=== PATIENT | female | born 1990 | race Caucasian/White ===

== ENCOUNTER 2016-05-13 09:41 | Day surgery (SDC) | payer OTHER ==
[~2016-05-13 09:41] MED LIST: CEFAZOLIN 2 GM/D5W RTU 2 GM/50 ML RTUPB IV PRN
[2016-05-13] MEDS ORDERED: BUPIVACAINE HCL 0.5 % INJ/PF 30 ML SDV ONE (10:02)
[2016-05-13] MEDS ORDERED: LIDOCAINE 1% INJ-PF (10 MG/ML) 30 ML SDV ONE (10:02)
[2016-05-13] MEDS ORDERED: ALBUTEROL SULFATE 0.083% NEB 2.5 MG/3 ML AMPUL NEB ONE (10:30)
[2016-05-13] MEDS ORDERED: ACETAMINOPHEN 100 ML IV ONE ×2 (10:40→10:43)
[2016-05-13] MEDS ORDERED: MIDAZOLAM 2 MG/2 ML INJ ONE (10:42)
[2016-05-13] MEDS ORDERED: FENTANYL CITRATE INJ/PF 100 MCG/2 ML AMPUL ONE (10:42)
[2016-05-13] MEDS ORDERED: DEXMEDETOMIDINE INJ 80 MCG/20 ML VIAL IV ONE (10:43)
[2016-05-13] MEDS ORDERED: PROPOFOL INJ 200 MG/20 ML VIAL IV ONE (10:43)
[2016-05-13] MEDS ORDERED: METOCLOPRAMIDE HCL INJ/PF 10 MG/2 ML SDV ONE (10:44)
[2016-05-13] MEDS ORDERED: SCOPOLAMINE HYDROBROMIDE 1.5 MG PATCH.TD72 ONE (10:44)
[2016-05-13] MEDS ORDERED: FAMOTIDINE INJ/PF 20 MG/2 ML SDV IV ONE (10:45)
[2016-05-13] MEDS ORDERED: IBUPROFEN 800 MG in NORMAL SALINE 250 ML IV ONE (12:00)
[2016-05-13] MEDS ORDERED: DIPHENHYDRAMINE HCL 50 MG/ML VIAL IV PRN (13:13)
[2016-05-13] MEDS ORDERED: MORPHINE SULFATE 10 MG/ML INJ IV PRN ×2 (13:13→14:30)
[2016-05-13] MEDS ORDERED: OXYCODONE-ACETAMINOPHEN 5-325 MG TABLET PO PRN ×3 (13:13→14:30)
[2016-05-13] MEDS ORDERED: PROMETHAZINE HCL INJ 25 MG/1 ML VIAL IV PRN ×2 (13:13)
[2016-05-13] MEDS ORDERED: MEPERIDINE HCL/PF INJ 25 MG/1 ML DISP.SYRIN IV PRN (13:13)
[2016-05-13] MEDS ORDERED: FENTANYL CITRATE INJ/PF 100 MCG/2 ML AMPUL IV PRN ×3 (13:13)
[2016-05-13] MEDS ORDERED: ONDANSETRON HCL INJ/PF 4 MG/2 ML SDV IV PRN (14:30)
--- NOTE | 2016-05-13 14:30 | Operative Report ---
Operative Report DATE OF SURGERY: 05/13/16 PREOPERATIVE DIAGNOSIS: Left Ring Finger Flexor Adhesions POSTOPERATIVE DIAGNOSIS: Same OPERATION: Left Ring Finger Flexor Tenolysis SURGEON: VIR[place] TAN ANESTHESIA: GA COMPLICATIONS: None ESTIMATED BLOOD LOSS: Minimal PROCEDURE: Indication for above procedure: 26-year-old female who sustained a jersey finger/FDP rupture. She underwent operative treatment. Postoperatively she underwent occupational therapy and developed flexor adhesions is unable to fully actively flex the finger. At that point we discussed treatment options including observation versus continue occupational therapy versus surgical intervention. After discussing risks and benefits of both patient verbalized understanding consented for the procedure. Procedure In Detail: Patient was seen and evaluated in the preoperative holding area. The LEFT upper extremity was initialized and marked. Patient received Ancef IV for bacterial prophylaxis. Patient was taken back to the operative room where transferred operative table. Patient was then placed Anesthesia. Once adequately anesthetized, a nonsterile tourniquet was placed on the upper extremity. A surgical team debriefing was performed ensuring all instrumentation was available, the surgical procedure was discussed with possible concerns reviewed. Skin was prepped with alcohol a digital block was performed with 50:50 10 mL mixture of 1% lidocaine and 0.5% Marcaine plain was injected. The upper extremity was prepped with chlorhexidine and alcohol and draped in a sterile fashion. A timeout was done identifying correct patient, procedure and extremity everyone in attendance agree with this and verbalized no concerns.The extremity was then exsanguinated the tourniquet was inflated to 250 mmHg. The previous skin incision was utilized and extended proximally to the level of the A1 fahad. Blunt dissection was performed and neurovascular bundle was identified throughout the course of the incision and protected. The A2 fahad and a portion of the A4 fahad remained intact. There was notable flexor adhesions distally at the repair site but no discontinuity of the tendon. Using a [place] blade the tendon was freed from surrounding soft tissue. I then carefully dilated the flexor sheath with a [employer] elevator. And a flexor tenolysis knife was utilized to free the tendon from the underlying proximal phalanx and metacarpal. It was then freed from surrounding soft tissue. Patient was then awoken from anesthesia and tourniquet deflated. Peripheral vasculature was coagulated with bipolar cautery. Patient attempted to make full composite fist but continued to have flexor lag of the DIP joint. The tourniquet was reinflated. The wound was extended more proximally and blunt dissection was once again performed. At the level of the A1 fahad there was notable adhesions. I once again used the freer and tenolysis knife to free any surrounding soft tissue. She was then again woken from anesthesia and tourniquet deflated. Patient was then able to make near full composite fist down to the distal palmar crease. Active DIP range of motion was 5/45. Given the amount of soft tissue that was freed I felt this was optimal for function I also released some remaining contracture adhesions all of the DIP joint. Any peripheral vasculature was coagulated with bipolar cautery until the wound was dry. Wound was irrigated with normal saline. An additional 5 mL of Marcaine were injected for postoperative pain control. Incision was closed with 4-0 Monocryl suture. The remaining aspect of the incision was closed with 4-0 chromic gut. Wound was dressed with Xeroform cast padding a loosely applied Jessica. Sponge counts, instrument counts, needle counts counts were correct. Patient was then awoken from anesthesia. Transferred from the operating room table to the operating room stretcher. There was no intraoperative complications patient tolerated procedure well stable to PACU. Postoperative plan: Patient will follow-up in the office in 10-14 days for wound check. Patient will begin physical therapy on 05/16/16.
[2016-05-13] MEDS ORDERED: LIDOCAINE 2% INJ-PF (20 MG/ML) 10 ML AMPUL ONE (15:56)
[2016-05-13] MEDS ORDERED: ONDANSETRON HCL INJ/PF 4 MG/2 ML SDV ONE (15:56)
[2016-05-13] MEDS ORDERED: SUCCINYLCHOLINE CHLORIDE INJ 200 MG/10 ML VIAL ONE (15:56)
[2016-05-13] MEDS ORDERED: DEXAMETHASONE SOD PHOSPHATE INJ 4 MG/1 ML VIAL ONE (15:56)
[2016-05-13 16:07] VITALS: BP 113/72
== END 2016-05-13 16:12 | disposition home or self-care (01) ==
LOC: OROUT 09:41
PROVIDERS: ATTEND Orthopaedic Surgery
PROC: 0LN80ZZ Release Left Hand Tendon, Open Approach (ICD-10-PCS; principal; 2016-05-13 12:00)
DX: M24.542 Contracture, left hand (principal); F17.210 Nicotine dependence, cigarettes, uncomplicated; J45.909 Unspecified asthma, uncomplicated; Z88.1 Allergy status to other antibiotic agents
CPT/HCPCS: 81025; 26440; J2250; J1100; J3010; J3490 ×3; J2765; J0330; J2405; J7050; J2704; S0028; J0690; J0131; J1741; 1810

== ENCOUNTER 2016-12-23 20:46 | Emergency (ER) | payer OTHER ==
[2016-12-23 20:58] VITALS: BP 145/78
[2016-12-23] MEDS ORDERED: OXYCODONE-ACETAMINOPHEN 5-325 MG TABLET PO ONE (21:54)
[2016-12-23] MEDS ORDERED: PROMETHAZINE HCL 25 MG TABLET PO ONE (21:54)
--- NOTE | 2016-12-23 21:55 | ER Document Report ---
ED GI/ - General Chief Complaint: OB Problem (<20wks) Stated Complaint: STOMACH PAIN Time Seen by Provider: 12/23/16 21:40 Notes: Patient is a 26 year old female that comes to the ED for chief complaint of sudden onset of sharp pelvic pain in both parts of her pelvis radiating to her back. She states that she was having sexual intercourse with her boyfriend when she felt a sudden sharp pain. She states she has had this in the past and been diagnosed with an ovarian cyst. She denies vomiting, pain is not as bad as it was previously but she still reports significant discomfort. She denies any daily medications or any other medical history. TRAVEL OUTSIDE OF THE [place] IN LAST 30 DAYS: No - Related Data Allergies/Adverse Reactions: latex Allergy (Verified 05/13/16 10:12) Itching vancomycin Allergy (Verified 05/13/16 10:12) "red itchy scalp" bandaids Allergy (Uncoded 05/13/16 10:12) itching, redness Past Medical History - Social History Smoking Status: Never Smoker Frequency of alcohol use: Occasional Drug Abuse: None Lives with: Family Family History: Reviewed & Not Pertinent - Past Medical History Cardiac Medical History: Denies: Hx Coronary Artery Disease, Hx Heart Attack, Hx Hypertension Pulmonary Medical History: Reports: Hx Bronchitis Denies: Hx Asthma - "asthma symptoms", Hx COPD, Hx Pneumonia Neurological Medical History: Denies: Hx Cerebrovascular Accident, Hx Seizures Musculoskeltal Medical History: Denies Hx Arthritis Past Surgical History: Reports: Hx Section, Hx Oral Surgery - wisdom teeth, Hx Orthopedic Surgery - Finger surgery yesterday, tendon reattachment ring finger left hand - Immunizations Hx Diphtheria, Pertussis, Tetanus Vaccination: Yes Review of Systems - Review of Systems Constitutional: No symptoms reported EENT: No symptoms reported Cardiovascular: No symptoms reported Respiratory: No symptoms reported Gastrointestinal: See HPI Genitourinary: See HPI Female Genitourinary: See HPI Musculoskeletal: No symptoms reported Skin: No symptoms reported Hematologic/Lymphatic: No symptoms reported Neurological/Psychological: No symptoms reported Physical Exam - Vital signs Vitals: Temp Pulse Resp BP Pulse Ox 98.8 F 117 H 24 H 145/78 H 95 12/23/16 20:56 12/23/16 20:56 12/23/16 20:56 12/23/16 20:56 12/23/16 20:56 Interpretation: Normal - General General appearance: Anxious In distress: Mild - Patient does appear to be in some pain - HEENT Head: Normocephalic, Atraumatic Eyes: Normal Conjunctiva: Normal Extraocular movements intact: Yes Eyelashes: Normal Pupils: PERRL Mouth/Lips: Normal Mucous membranes: Normal Pharynx: Normal Neck: Normal - Respiratory Respiratory status: No respiratory distress Chest status: Nontender Breath sounds: Normal Chest palpation: Normal - Cardiovascular Rhythm: Regular, Tachycardia Heart sounds: Normal auscultation, S1 appreciated, S2 appreciated Murmur: No - Abdominal Inspection: Normal Distension: No distension Bowel sounds: Normal Tenderness: Nontender Organomegaly: No organomegaly - Back Back: Normal, Nontender. No: Tender, CVA tenderness - Extremities General upper extremity: Normal inspection, Nontender, Normal color, Normal ROM , Normal temperature General lower extremity: Normal inspection, Nontender, Normal color, Normal ROM , Normal temperature, Normal weight bearing. No: Karyn's sign - Neurological Neuro grossly intact: Yes Cognition: Normal Orientation: AAOx4 Eulogio Coma Scale Eye Opening: Spontaneous Eulogio Coma Scale Verbal: Oriented [place] Coma Scale Motor: Obeys Commands Eulogio Coma Scale Total: 15 Speech: Normal Motor strength normal: LUE, RUE, LLE, RLE Sensory: Normal - Skin Skin Temperature: Warm Skin Moisture: Dry Skin Color: Normal Course - Re-evaluation Re-evalutation: CBC, chemistry, urinalysis unremarkable, hCG is negative. Ultrasound consistent with ruptured ovarian cyst. Good blood supply to both ovaries. Patient does not have any vaginal bleeding. On reevaluation she is well- appearing. Vital signs unremarkable. There is a clot noted on ultrasound, no hemorrhagic cyst. No other abnormality. Patient will be provided with symptom management, given a few pain medications, discussed follow-up, return precautions in detail, patient states satisfaction and agreement. Unfortunately repeat vital signs were not recorded, patient was calm, well- appearing, not tachycardic on her evaluation. - Vital Signs Vital signs: Temp Pulse Resp BP Pulse Ox 98.8 F 117 H 24 H 145/78 H 95 12/23/16 20:56 12/23/16 20:56 12/23/16 20:56 12/23/16 20:56 12/23/16 20:56 - Laboratory Result Diagrams: 12/23/16 22:31 12/23/16 23:15 Discharge - Discharge Clinical Impression: Pelvic pain Condition: Stable Disposition: HOME, SELF-CARE Additional Instructions: Your ultrasound is consistent with a ruptured ovarian cyst. This is most likely the cause of your pain. No other abnormalities are seen at this time. Take the pain medication if needed, follow-up with primary care, return if the pain increases significantly, if you become faint, or if you experience vaginal bleeding, or any other concerning symptoms. Prescriptions: Hydrocodone/Acetaminophen [[place] 5-325 mg Tablet] 1 - 2 tab PO ASDIR #8 tablet Referrals: DINA LOPEZ MD [Primary Care Provider] - Follow up as needed
[2016-12-23 22:28] LABS: APPEARANCE,URINE SLIGHTLY-CLOUDY; BILIRUBIN,URINE NEGATIVE (NEGATIVE); GLUCOSE, URINE NEGATIVE (NEGATIVE); KETONES,URINE NEGATIVE (NEGATIVE); LEUKOCYTE ESTERASE,URINE NEGATIVE (NEGATIVE); NITRITE,URINE NEGATIVE (NEGATIVE); PROTEIN,URINE NEGATIVE (NEGATIVE); UROBILINOGEN,URINE NEGATIVE mg/dL (<2.0)
[2016-12-23 22:47] LABS: ABSOLUTE BASOPHILS # (AUTO) 0.1 10^3/uL (0.0-0.2); ABSOLUTE EOSINOPHILS # (AUTO) 0.2 10^3/uL (0.0-0.6); ABSOLUTE LYMPHOCYTES (AUTO) 2.1 10^3/uL (0.5-4.7); ABSOLUTE MONOCYTES (AUTO) 0.8 10^3/uL (0.1-1.4); ABSOLUTE NEUT (AUTO) 7.3 10^3/uL (1.7-8.2); BASOPHILS % (AUTO) 0.5 % (0-2); EOSINOPHILS % (AUTO) 1.6 % (0-6); HEMATOCRIT 38.8 % (36.0-47.0); HEMOGLOBIN 13.2 g/dL (12.0-15.5); HGB HCT DIFFERENCE 0.8; LYMPHOCYTES % (AUTO) 20.4 % (13-45); MEAN CORPUSCULAR HEMOGLOBIN 32.3 pg (27.0-33.4); MEAN CORPUSCULAR HGB CONC 34.1 g/dL (32.0-36.0); MEAN CORPUSCULAR VOLUME 95 fl (80-97); MONOCYTES % (AUTO) 7.7 % (3-13); RED BLOOD COUNT 4.09 10^6/uL (3.72-5.28); RED CELL DISTRIBUTION WIDTH 12.7 % (11.5-14.0); SEGMENTED NEUTROPHILS % (AUTO) 69.8 % (42-78); WHITE BLOOD COUNT 10.5 10^3/uL (4.0-10.5)
--- NOTE | 2016-12-23 23:41 | RADIOLOGY REPORT (SQ) ---
EXAM DESCRIPTION: U/S NON OB PEL TV W/DOPPLER COMPLETED DATE/TIME: 12/23/2016 11:31 pm REASON FOR STUDY: sharp pelvic pain, nausea, hx of cysts COMPARISON: None. TECHNIQUE: Dynamic and static grayscale images acquired of the pelvis via transvaginal approach and recorded on PACS. Additional selected color Doppler and spectral images recorded. LIMITATIONS: None. FINDINGS: UTERUS: Contour normal. No mass. ENDOMETRIAL STRIPE: No focal or generalized thickening. No masses. CERVIX: No nabothian cysts. RIGHT OVARY: No abnormal masses. RIGHT OVARY DOPPLER: Normal arterial vascular flow without evidence for torsion. LEFT OVARY: Normal with ruptured cyst/collapsing follicle. LEFT OVARY DOPPLER: Normal arterial vascular flow without evidence for torsion. FREE FLUID: Mild to moderate free fluid with round echogenic region without internal color flow measu ring 2.1 x 1.6 x 2.2 cm presumably representing a small amount of blood clot. OTHER: No other significant finding. MEASUREMENTS: UTERUS: 7.5 x 5.2 x 4.2 cm. ENDOMETRIAL STRIPE: 3 mm. RIGHT OVARY: 3.1 x 2.7 x 2.9 cm. LEFT OVARY: 4.7 x 2.5 x 3.4 cm. IMPRESSION: RUPTURED CYST/COLLAPSING FOLLICLE LEFT OVARY WITH MILD TO MODERATE FREE FLUID WHICH IS L IKELY PHYSIOLOGIC BUT COULD ACCOUNT FOR REPORTED PAIN. THERE IS A 2.2 CM AVASCULAR HYPERECHOIC LESIO N SEEN WITHIN THE FLUID PRESUMABLY REPRESENTING A SMALL AMOUNT OF BLOOD CLOT. OTHERWISE UNREMARKABLE PELVIC ULTRASOUND. TECHNICAL DOCUMENTATION: JOB ID: [id number] [employer]- All Rights Reserved
[2016-12-23] MEDS ORDERED: HYDROCODONE/ACETAMINOPHEN 5-325 MG 6 TAB/DSPK PO PRN (23:52)
[2016-12-23 23:57] LABS: ALANINE AMINOTRANSFERASE 35 U/L (9-52); ALBUMIN 4.2 g/dL (3.5-5.0); ALKALINE PHOSPHATASE 49 U/L (38-126); ANION GAP 12 (5-19); ASPARTATE AMINO TRANSFERASE 14 U/L (14-36); BILIRUBIN,DIRECT 0.4 mg/dL (0.0-0.4); BILIRUBIN,TOTAL 0.4 mg/dL (0.2-1.3); BLOOD UREA NITROGEN 10 mg/dL (7-20); CALCIUM 9.3 mg/dL (8.4-10.2); CARBON DIOXIDE 26 mmol/L (22-30); CHLORIDE 106 mmol/L (98-107); CREATININE RESULT 0.67 mg/dL (0.52-1.25); GLUCOSE 101 mg/dL (75-110); POTASSIUM 3.9 mmol/L (3.6-5.0); SODIUM 143.7 mmol/L (137-145); TOTAL PROTEIN 6.6 g/dL (6.3-8.2)
== END 2016-12-24 00:55 | disposition home or self-care (01) ==
LOC: ER 20:46
DX: R10.2 Pelvic and perineal pain (principal); R10.9 Unspecified abdominal pain; M54.9 Dorsalgia, unspecified
CPT/HCPCS: 36415; 76830; 80053; 81001; 81025; 85025; 93976; 99284

== ENCOUNTER 2017-05-29 15:54 | Emergency (ER) | payer BC, OTHER ==
[2017-05-29] MEDS ORDERED: HYDROCODONE/ACETAMINOPHEN 5-325 MG TABLET PO ONE (17:18)
--- NOTE | 2017-05-29 17:19 | ER Document Report ---
ED Medical Screen (RME) - General Chief Complaint: Lower Abdominal Pain Stated Complaint: ABDOMINAL PAIN Time Seen by Provider: 05/29/17 17:17 Notes: Patient states she was having intercourse 2 days ago when she developed the sudden onset of cervical and abdominal pain. She states it is not improved. She states her stomach feels swollen. She states it feels similar to when she has had a ruptured ovarian cyst in the past. Patient denies any vaginal bleeding. TRAVEL OUTSIDE OF THE [place] IN LAST 30 DAYS: No - Related Data Allergies/Adverse Reactions: latex Allergy (Verified 05/29/17 17:08) Itching vancomycin Allergy (Verified 05/29/17 17:08) "red itchy scalp" bandaids Allergy (Uncoded 05/29/17 17:08) itching, redness Past Medical History - Social History Chew tobacco use (# tins/day): No Frequency of alcohol use: None Drug Abuse: None - Past Medical History Cardiac Medical History: Denies: Hx Coronary Artery Disease, Hx Heart Attack, Hx Hypertension Pulmonary Medical History: Reports: Hx Bronchitis Denies: Hx Asthma - "asthma symptoms", Hx COPD, Hx Pneumonia Neurological Medical History: Denies: Hx Cerebrovascular Accident, Hx Seizures Renal/ Medical History: Denies: Hx Peritoneal Dialysis Musculoskeltal Medical History: Denies Hx Arthritis Past Surgical History: Reports: Hx Section, Hx Oral Surgery - wisdom teeth, Hx Orthopedic Surgery - Finger surgery yesterday, tendon reattachment ring finger left hand - Immunizations Hx Diphtheria, Pertussis, Tetanus Vaccination: Yes Physical Exam - Vital signs Vitals: Temp Pulse Resp BP Pulse Ox 98.0 F 98 16 137/90 H 98 05/29/17 16:18 05/29/17 16:18 05/29/17 16:18 05/29/17 16:18 05/29/17 16:18 Course - Vital Signs Vital signs: Temp Pulse Resp BP Pulse Ox 98.0 F 98 16 137/90 H 98 05/29/17 16:18 05/29/17 16:18 05/29/17 16:18 05/29/17 16:18 05/29/17 16:18
--- NOTE | 2017-05-29 18:29 | ER Document Report ---
ED General - General Chief Complaint: Lower Abdominal Pain Stated Complaint: ABDOMINAL PAIN Time Seen by Provider: 05/29/17 17:17 TRAVEL OUTSIDE OF THE [place] IN LAST 30 DAYS: No - HPI Notes: 19-year-old female presents today with complaints of right upper, right lower and cervical pain that she experienced 2 days ago while having sexual intercourse. Reports history of ovarian rupture. Pain is 9 out of 10, throbbing achy. Pain is constant. Worse with movement, nothing makes better. Has not tried any iabk-ceo-kamnztt medications. Has not had sexual intercourse since that time. Denies any vaginal discharge. Denies fevers, chills, chest pain,palpitations, shortness of breath, dyspnea, nausea, vomiting, diarrhea, hematuria,blurred vision, double vision, loss of vision, speech changes, LH, dizziness, syncope, headaches, wheezing, ST, URI, neck pain, weakness, bowel or bladder dysfunction, saddle anesthesia, numbness or tingling in bilateral upper or lower extremities equally, muscle paralysis, weakness in bilateral upper or lower extremities equally or rash. Denies IV drug use. - Related Data Allergies/Adverse Reactions: latex Allergy (Verified 05/29/17 17:08) Itching vancomycin Allergy (Verified 05/29/17 17:08) "red itchy scalp" bandaids Allergy (Uncoded 05/29/17 17:08) itching, redness Past Medical History - General Information source: Patient - Social History Smoking Status: Never Smoker Chew tobacco use (# tins/day): No Frequency of alcohol use: None Drug Abuse: None Family History: Reviewed & Not Pertinent Patient has suicidal ideation: No Patient has homicidal ideation: No - Past Medical History Cardiac Medical History: Denies: Hx Coronary Artery Disease, Hx Heart Attack, Hx Hypertension Pulmonary Medical History: Reports: Hx Bronchitis Denies: Hx Asthma - "asthma symptoms", Hx COPD, Hx Pneumonia Neurological Medical History: Denies: Hx Cerebrovascular Accident, Hx Seizures Renal/ Medical History: Denies: Hx Peritoneal Dialysis Musculoskeltal Medical History: Denies Hx Arthritis Past Surgical History: Reports: Hx Section, Hx Oral Surgery - wisdom teeth, Hx Orthopedic Surgery - Finger surgery yesterday, tendon reattachment ring finger left hand - Immunizations Hx Diphtheria, Pertussis, Tetanus Vaccination: Yes Review of Systems - Review of Systems Constitutional: No symptoms reported EENT: No symptoms reported Cardiovascular: No symptoms reported Respiratory: No symptoms reported Gastrointestinal: See HPI Genitourinary: No symptoms reported Female Genitourinary: See HPI Musculoskeletal: No symptoms reported Skin: No symptoms reported Hematologic/Lymphatic: No symptoms reported Neurological/Psychological: No symptoms reported Physical Exam - Vital signs Vitals: Temp Pulse Resp BP Pulse Ox 98.0 F 98 16 137/90 H 98 05/29/17 16:18 05/29/17 16:18 05/29/17 16:18 05/29/17 16:18 05/29/17 16:18 - Notes Notes: REVIEW OF SYSTEMS: CONSTITUTIONAL : Denies fever, chills, or sweats. Denies recent illness. EENT: Denies eye, ear, throat, or mouth pain or symptoms. Denies nasal or sinus congestion or discharge. Denies throat, tongue, or mouth swelling or difficulty swallowing. CARDIOVASCULAR: Denies chest pain. Denies palpitations or racing or irregular heart beat. Denies ankle edema. RESPIRATORY: Denies cough, cold, or chest congestion. Denies shortness of breath, difficulty breathing, or wheezing. GASTROINTESTINAL: Denies abdominal pain or distention. Denies nausea, vomiting , or diarrhea. Denies blood in vomitus, stools, or per rectum. Denies black, tarry stools. Denies constipation. GENITOURINARY: Denies difficulty urinating, painful urination, burning, frequency, blood in urine, or discharge. FEMALE GENITOURINARY: Denies vaginal bleeding, heavy or abnormal periods, irregular periods. Denies vaginal discharge or odor. MUSCULOSKELETAL: Denies back or neck pain or stiffness. Denies joint pain or swelling. SKIN: Denies rash, lesions or sores. HEMATOLOGIC : Denies easy bruising or bleeding. LYMPHATIC: Denies swollen, enlarged glands. NEUROLOGICAL: Denies confusion or altered mental status. Denies passing out or loss of consciousness. Denies dizziness or lightheadedness. Denies headache. Denies weakness or paralysis or loss of use of either side. Denies problems with gait or speech. Denies sensory loss, numbness, or tingling. Denies seizures. PSYCHIATRIC: Denies anxiety or stress. Denies depression, suicidal ideation, or homicidal ideation. ALL OTHER SYSTEMS REVIEWED AND NEGATIVE. PHYSICAL EXAMINATION: GENERAL: Well-appearing, well-nourished and in no acute distress. HEAD: Atraumatic, normocephalic. EYES: Pupils equal round and reactive to light, extraocular movements intact, conjunctiva are normal. ENT: Nares patent, oropharynx clear without exudates. Moist mucous membranes. NECK: Normal range of motion, supple without lymphadenopathy LUNGS: Breath sounds clear to auscultation bilaterally and equal. No wheezes rales or rhonchi. HEART: Regular rate and rhythm without murmurs ABDOMEN: Soft, nontender, nondistended abdomen. No guarding, no rebound. No masses appreciated. Female : External genitalia without erythema, exudate or discharge. Vaginal vault is without discharge. Cervix is of normal color without lesion. There is no bleeding noted. Uterus is noted to be of normal size and nontender. No cervical motion tenderness is seen. No masses are palpated. Musculoskeletal: Normal range of motion, no pitting or edema. No cyanosis. NEUROLOGICAL: Cranial nerves grossly intact. Normal speech, normal gait. Normal sensory, motor exams PSYCH: Normal mood, normal affect. SKIN: Warm, Dry, normal turgor, no rashes or lesions noted. Dictation was performed using [employer] voice recognition software Course - Re-evaluation Re-evalutation: 05/29/17 21:16 Healthy 19-year-old female is afebrile was not in any distress with complaints of pelvic and right upper quadrant and right lower quadrant tenderness after having intercourse 2 days ago. Pelvic exam essentially normal. CT abdomen pelvis negative for any acute findings, appendix is normal, does show some free fluid around the pelvis on the transvaginal ultrasound. CBC without any anemia or leukocytosis, hCG negative, CMP negative for any renal or hepatic dysfunction , electrolytes without any disturbances. Urinalysis does show a UTI. Wet mount negative for any BV, yeast or trichomonas. Still awaiting GC results. Patient states she felt much better. Discussed findings with Dr. Sam Wellington, [facility] on-call at 2116, discussed pertinent laboratory, diagnostic and clinical examine, stated it would be appropriate for patient to be followed up outpatient , no further interventions need to be completed at this time. Advised patient to take antibiotic as directed for UTI. Increase oral hydration. Follow-up with PCP and [facility] within 1 week for reevaluation. At this time will discharge with return precautions and follow-up recommendations. Verbal discharge instructions given a the bedside and opportunity for questions given. Medication warnings reviewed. Patient is in agreement with this plan and has verbalized understanding of return precautions and the need for primary care follow-up in the next 24-72 hours. After performing a Medical Screening Examination, I estimate there is LOW risk for ACUTE APPENDICITIS, BOWEL OBSTRUCTION, ACUTE CHOLECYSTITIS, PERFORATED DIVERTICULITIS, INCARCERATED HERNIA, PANCREATITIS, PELVIC INFLAMMATORY DISEASE, PERFORATED ULCER, ECTOPIC , or TUBO-OVARIAN ABSCESS, thus I consider the discharge disposition reasonable. Also, there is no evidence or peritonitis , sepsis, or toxicity. I have reevaluated this patient multiple times and no significant life threatening changes are noted. The patient and I have discussed the diagnosis and risks, and we agree with discharging home with close follow-up with the understanding that symptoms and presentations can change. We also discussed returning to the Emergency Department immediately if new or worsening symptoms occur. We have discussed the symptoms which are most concerning (e.g., bloody stool, fever, changing or worsening pain, vomiting) that necessitate immediate return. - Vital Signs Vital signs: Temp Pulse Resp BP Pulse Ox 98.0 F 98 16 137/90 H 98 05/29/17 16:18 05/29/17 16:18 05/29/17 16:18 05/29/17 16:18 05/29/17 16:18 - Laboratory Result Diagrams: 05/29/17 18:30 05/29/17 18:30 Laboratory results interpreted by me: 05/29/17 17:40 Urine Urobilinogen 2.0 H Ur Leukocyte Esterase TRACE H Discharge - Discharge Clinical Impression: UTI (urinary tract infection) Qualifiers: Urinary tract infection type: acute cystitis Hematuria presence: without hematuria Qualified Code(s): N30.00 - Acute cystitis without hematuria Ovarian cyst Qualifiers: Laterality: left Qualified Code(s): N83.202 - Unspecified ovarian cyst, left side Condition: Good Disposition: HOME, SELF-CARE Instructions: Urinary Tract Infection ([facility]), Ovarian Cyst ([facility]) Additional Instructions: Ovarian Cyst Your examination shows the presence of an ovarian cyst. This is a ball of fluid attached to the ovary. Ovarian cysts in women of child-bearing age are usually innocent. However, the cyst may cause pain when it grows or bursts. An innocent ovarian cyst will usually go away by itself. When the cyst becomes painful, you should rest. Pain medication may be required. Some women find a hot water bottle soothing. The pain usually resolves within one or two days. After menopause, an ovarian cyst may mean a tumor, and requires more aggressive evaluation -- usually surgery is recommended to remove or biopsy the cyst. A very large cyst requires evaluation at any age. Most cysts (even the innocent ones) require follow-up examination. Call the doctor or return at any time if the pain increases significantly, if you become faint, or if you experience vaginal bleeding. Follow up with [facility] within 3 days. Take antibiotic as directed for UTI. Increase oral hydration. CP in 1 week for repeat urinalysis. Return immediately for any new or worsening symptoms. Follow up with primary care provider, call tomorrow to make followup appointment. Prescriptions: Nitrofurantoin Monohyd/M-Cryst [Macrobid 100 mg Capsule] 100 mg PO BID #14 capsule Referrals: SAM WELLINGTON MD [ACTIVE STAFF] - Follow up in 3-5 days DENNIS LOPEZ FNP-C [Primary Care Provider] - Follow up in 3-5 days
[2017-05-29 18:40] LABS: AMORPHOUS SEDIMENT,URINE TRACE /HPF; APPEARANCE,URINE SLIGHTLY-CLOUDY; BILIRUBIN,URINE NEGATIVE (NEGATIVE); COLOR,URINE YELLOW; GLUCOSE, URINE NEGATIVE (NEGATIVE); KETONES,URINE NEGATIVE (NEGATIVE); LEUKOCYTE ESTERASE,URINE TRACE (NEGATIVE); NITRITE,URINE NEGATIVE (NEGATIVE); PROTEIN,URINE NEGATIVE (NEGATIVE); URINE SPECIFIC GRAVITY 1.024
[2017-05-29 18:41] LABS: ABSOLUTE BASOPHILS # (AUTO) 0.1 10^3/uL (0.0-0.2); ABSOLUTE EOSINOPHILS # (AUTO) 0.3 10^3/uL (0.0-0.6); ABSOLUTE LYMPHOCYTES (AUTO) 2.9 10^3/uL (0.5-4.7); ABSOLUTE MONOCYTES (AUTO) 0.7 10^3/uL (0.1-1.4); ABSOLUTE NEUT (AUTO) 4.2 10^3/uL (1.7-8.2); BASOPHILS % (AUTO) 0.8 % (0-2); EOSINOPHILS % (AUTO) 3.1 % (0-6); HEMATOCRIT 39.3 % (36.0-47.0); HEMOGLOBIN 13.3 g/dL (12.0-15.5); LYMPHOCYTES % (AUTO) 36.1 % (13-45); MEAN CORPUSCULAR HEMOGLOBIN 32.2 pg (27.0-33.4); MEAN CORPUSCULAR HGB CONC 33.8 g/dL (32.0-36.0); MEAN CORPUSCULAR VOLUME 95 fl (80-97); MONOCYTES % (AUTO) 8.1 % (3-13); PLATELET COUNT 266 10^3/uL (150-450); RED BLOOD COUNT 4.13 10^6/uL (3.72-5.28); RED CELL DISTRIBUTION WIDTH 12.7 % (11.5-14.0); SEGMENTED NEUTROPHILS % (AUTO) 51.9 % (42-78); TOTAL CELLS COUNTED % (AUTO) 100 %; WHITE BLOOD COUNT 8.1 10^3/uL (4.0-10.5)
[2017-05-29] MEDS ORDERED: NORMAL SALINE 1000 ML 1,000 ML IV ONE (18:44)
[2017-05-29 19:05] LABS: ALANINE AMINOTRANSFERASE 29 U/L (9-52); ALBUMIN 4.4 g/dL (3.5-5.0); ALKALINE PHOSPHATASE 44 U/L (38-126); ANION GAP 14 (5-19); ASPARTATE AMINO TRANSFERASE 15 U/L (14-36); BILIRUBIN,DIRECT 0.3 mg/dL (0.0-0.4); BILIRUBIN,TOTAL 0.3 mg/dL (0.2-1.3); BLOOD UREA NITROGEN 16 mg/dL (7-20); CALCIUM 9.6 mg/dL (8.4-10.2); CARBON DIOXIDE 29 mmol/L (22-30); CHLORIDE 101 mmol/L (98-107); GLUCOSE 88 mg/dL (75-110); POTASSIUM 4.1 mmol/L (3.6-5.0); SODIUM 144.1 mmol/L (137-145); TOTAL PROTEIN 7.2 g/dL (6.3-8.2)
--- NOTE | 2017-05-29 19:42 | RADIOLOGY REPORT (SQ) ---
EXAM DESCRIPTION: U/S NON OB PEL TV W/DOPPLER COMPLETED DATE/TIME: 05/29/2017 7:21 pm REASON FOR STUDY: cervical pain with abd pain, hx of ovarian rupture COMPARISON: None. TECHNIQUE: Dynamic and static grayscale images acquired of the pelvis via transvaginal approach and recorded on PACS. Additional selected color Doppler and spectral images recorded. LIMITATIONS: None. FINDINGS: UTERUS: Contour normal. No mass. ENDOMETRIAL STRIPE: No focal or generalized thickening. No masses. CERVIX: No nabothian cysts. RIGHT ADNEXUM: No abnormal masses. RIGHT OVARY AND DOPPLER: Normal size. No worrisome masses.Normal arterial vascular flow without evide nce for torsion. LEFT ADNEXUM: 2 cm ovarian cysts. LEFT OVARY AND DOPPLER: Normal size. No worrisome masses. Normal arterial vascular flow without evide nce for torsion. FREE FLUID: Free fluid in the cul de sac. OTHER: No other significant finding. MEASUREMENTS: UTERUS: 8.5 x 6.2 x 4.4 cm ENDOMETRIAL STRIPE: 7.8 mm RIGHT OVARY: 3.4 x 2.6 x 3.2 cm LEFT OVARY: 5.7 x 3.6 x 3.7 cm IMPRESSION: 2 cm left ovarian cysts. Some free fluid in the pelvis. TECHNICAL DOCUMENTATION: JOB ID: [id number] [employer]- All Rights Reserved Reading location - IP/workstation name: [email or web address]
[2017-05-29] MEDS ORDERED: DIPHENHYDRAMINE HCL 50 MG/ML VIAL IV ONE (20:41)
[2017-05-29 20:54] LABS: T.VAGINALIS (WET MOUNT) NO TRICHOMONAS SEEN; WBCS (WET MOUNT) RARE WBCS SEEN; YEAST (WET MOUNT) NO YEAST SEEN
--- NOTE | 2017-05-29 21:01 | RADIOLOGY REPORT (SQ) ---
EXAM DESCRIPTION: CT ABD/PELVIS WITH IV ONLY COMPLETED DATE/TIME: 05/29/2017 8:42 pm REASON FOR STUDY: RUQ, RLQ abd pain, hx of ovarian rupture COMPARISON: None. TECHNIQUE: CT scan of the abdomen and pelvis performed using helical scanning technique with dynamic intravenous contrast injection. No oral contrast. Images reviewed with lung, soft tissue, and bone windows. Reconstructed coronal and sagittal MPR images reviewed. Delayed images for evaluation of the urinary system also acquired. All images stored on PACS. All CT scanners at this facility use dose modulation, iterative reconstruction, and/or weight based d osing when appropriate to reduce radiation dose to as low as reasonably achievable (ALARA). [facility]: Dose Right [facility]: CareDose [facility]: Dose Right [facility]: Teradose 4D [facility]: Scripted CONTRAST TYPE AND DOSE: contrast/concentration: Isovue 370.00 mg/ml; Total Contrast Delivered: 83.0 ml; Total Saline Delivered: 48.0 ml RENAL FUNCTION: None required. The patient is less than 50 years old. RADIATION DOSE: CT Rad equipment meets quality standard of care and radiation dose reduction techniq ues were employed. CTDIvol: 7.6 - 10.5 mGy. DLP: 978 mGy-cm.. LIMITATIONS: None. FINDINGS: LOWER CHEST: No significant findings. No nodules or infiltrates. LIVER: Normal size. No masses. No dilated ducts. SPLEEN: Normal size. No focal lesions. PANCREAS: No masses. No significant calcifications. No adjacent inflammation or peripancreatic fluid collections. Pancreatic duct not dilated. GALLBLADDER: No identified stones by CT criteria. No inflammatory changes to suggest cholecystitis. ADRENAL GLANDS: No significant masses or asymmetry. RIGHT KIDNEY AND URETER: No solid masses. No significant calcifications. No hydronephrosis or hyd roureter. LEFT KIDNEY AND URETER: No solid masses. No significant calcifications. No hydronephrosis or hydr oureter. AORTA AND VESSELS: No aneurysm. No dissection. Renal arteries, SMA, celiac without stenosis. RETROPERITONEUM: No retroperitoneal adenopathy, hemorrhage or masses. BOWEL AND PERITONEAL CAVITY: No masses or inflammatory changes. No free fluid or peritoneal masses. APPENDIX: Normal. PELVIS: 2 cm left ovarian cyst. Free fluid in the pelvis. ABDOMINAL WALL: No masses. No hernias. BONES: Grade 1 spondylolisthesis L5 on S1 with bilateral pars defects. OTHER: No other significant finding. IMPRESSION: Findings demonstrated on ultrasound of the pelvis are also seen on the CT. This include s a left ovarian cyst and some free fluid in the pelvis. TECHNICAL DOCUMENTATION: JOB ID: [id number] Quality ID # [id number]: Final reports with documentation of one or more dose reduction techniques (e.g., Au tomated exposure control, adjustment of the mA and/or kV according to patient size, use of iterative reconstruction technique) 2010 [employer]- All Rights Reserved Reading location - IP/workstation name: [email or web address]
[2017-05-29 21:29] VITALS: BP 132/72
[2017-05-29 22:11] LABS: CHLAM PCR NOT DETECTED (NOT DETECT); GON PCR NOT DETECTED (NOT DETECT)
== END 2017-05-29 21:29 | disposition home or self-care (01) ==
LOC: ER 15:54
DX: N30.00 Acute cystitis without hematuria (principal); N83.202 Unspecified ovarian cyst, left side; Z91.040 Latex allergy status; Z88.1 Allergy status to other antibiotic agents
CPT/HCPCS: 99284; 96374; 36415; 87086; 87210; 85025; 81025; 80053; 81001; 87491; 87591; 76830; 93976; 74177; J1200; J7030

== ENCOUNTER 2017-05-31 01:31 | Emergency (ER) | payer OTHER ==
[2017-05-31] MEDS ORDERED: NORMAL SALINE 1000 ML 1,000 ML IV ONE (02:03)
[2017-05-31] MEDS ORDERED: KETOROLAC TROMETHAMINE INJ/PF 30 MG/1 ML SDV IV ONE (02:03)
[2017-05-31] MEDS ORDERED: ONDANSETRON HCL INJ/PF 4 MG/2 ML SDV IV ONE (02:03)
[2017-05-31] MEDS ORDERED: PHENAZOPYRIDINE HCL 200 MG TABLET PO ONE (02:03)
--- NOTE | 2017-05-31 02:04 | ER Document Report ---
ED General - General Chief Complaint: Fever Stated Complaint: FEVER Time Seen by Provider: 05/31/17 01:58 Notes: Patient is a 27-year-old female who presents emergency department the chief complaint of fever, abdominal pain. Patient states that she was seen here yesterday and diagnosed with urinary tract infection initiated on Macrobid and told she has a ovarian cyst. She states that she went home and was doing well throughout the day and compliant with her medications. Patient states that this evening she felt warm with a T-max of 101. Patient to take Tylenol prior to arrival. Currently she admits to suprapubic pain and pressure. She admits to pyuria and hematuria. Patient admits to nausea and vomiting as well. Last menstrual period was April 11 and patient tested negative last evening for . TRAVEL OUTSIDE OF THE [place] IN LAST 30 DAYS: No - Related Data Allergies/Adverse Reactions: latex Allergy (Verified 05/31/17 03:13) Itching vancomycin Allergy (Verified 05/31/17 03:13) "red itchy scalp" bandaids Allergy (Uncoded 05/31/17 03:13) itching, redness Past Medical History - Social History Smoking Status: Unknown if Ever Smoked Family History: Reviewed & Not Pertinent Patient has suicidal ideation: No Patient has homicidal ideation: No - Past Medical History Cardiac Medical History: Denies: Hx Coronary Artery Disease, Hx Heart Attack, Hx Hypertension Pulmonary Medical History: Reports: Hx Bronchitis Denies: Hx Asthma - "asthma symptoms", Hx COPD, Hx Pneumonia Neurological Medical History: Denies: Hx Cerebrovascular Accident, Hx Seizures Renal/ Medical History: Denies: Hx Peritoneal Dialysis Musculoskeltal Medical History: Denies Hx Arthritis Past Surgical History: Reports: Hx Section, Hx Oral Surgery - wisdom teeth, Hx Orthopedic Surgery - Finger surgery yesterday, tendon reattachment ring finger left hand - Immunizations Hx Diphtheria, Pertussis, Tetanus Vaccination: Yes Review of Systems - Review of Systems Constitutional: See HPI Cardiovascular: No symptoms reported Respiratory: No symptoms reported Gastrointestinal: See HPI Genitourinary: See HPI Female Genitourinary: See HPI Musculoskeletal: No symptoms reported Skin: No symptoms reported Neurological/Psychological: No symptoms reported -: Yes All other systems reviewed and negative Physical Exam - Vital signs Vitals: Temp Pulse Resp BP Pulse Ox 98.0 F 127 H 16 130/76 H 98 05/31/17 01:47 05/31/17 01:47 05/31/17 01:47 05/31/17 01:47 05/31/17 01:47 - Notes Notes: PHYSICAL EXAM GENERAL: Alert, interacts well. HEAD: Normocephalic, atraumatic. EYES: Pupils equal, round, and reactive to light. Extraocular movements intact. ENT: Oral mucosa moist, tongue midline. NECK: Full range of motion. Supple. Trachea midline. LUNGS: Clear to auscultation bilaterally, no wheezes, rales, or rhonchi. No respiratory distress. HEART: Regular rate and rhythm. No murmurs, gallops, or rubs. ABDOMEN: Soft, nondistended, moderate suprapubic tenderness otherwise no focal abdominal tenderness.. No guarding, rebound, or rigidity.. Bowel sounds present in all 4 quadrants. EXTREMITIES: Moves all 4 extremities spontaneously. No edema, radial and dorsalis pedis pulses 2/4 bilaterally. No cyanosis. NEUROLOGICAL: Alert and oriented x4. Normal speech. PSYCH: Normal affect, normal mood. SKIN: Warm, dry, normal turgor. No rashes or lesions noted. Course - Re-evaluation Re-evalutation: 05/31/17 02:20 Patient is a 27-year-old female is hemodynamically stable, no acute distress and afebrile at this time. Repeat exam with suprapubic tenderness. Repeat blood work without evidence of leukocytosis, acute renal failure concerning for developing pyelonephritis. Urinalysis clean without any concerns for worsening UTI. Extensive workup last evening shows 2cm ovarian cyst. Palvic swabs negative for gonorrhea and chlamydia. Patient's presentation is low suspicion for PID. Patient's pain well controlled at this time. Will discharge home with strict return precautions. Patient agreeable plan stable for discharge - Vital Signs Vital signs: Temp Pulse Resp BP Pulse Ox 98.0 F 127 H 20 129/76 H 100 05/31/17 01:47 05/31/17 01:47 05/31/17 03:10 05/31/17 03:10 05/31/17 04:02 - Laboratory Result Diagrams: 05/31/17 02:58 05/31/17 02:58 Discharge - Discharge Clinical Impression: Ovarian cyst, UTI (urinary tract infection) Condition: Good Disposition: HOME, SELF-CARE Instructions: Ovarian Cyst ([facility]), Urinary Tract Infection ([facility]) Additional Instructions: Continue taking antibiotics as directed. Please take medications as prescribed. Prescriptions: Tramadol HCl 50 mg PO Q8HP PRN #10 tablet PRN Reason: Ondansetron HCl [Zofran 4 mg Tablet] 1 - 2 tab PO Q4H PRN #10 tablet PRN Reason: Phenazopyridine HCl [Pyridium 200 mg Tablet] 200 mg PO TID #15 tablet Forms: Return to Work Referrals: RHETT ALVAREZ MD [ACTIVE STAFF] - Follow up in 1 week
[2017-05-31 03:20] LABS: ABSOLUTE BASOPHILS # (AUTO) 0.1 10^3/uL (0.0-0.2); ABSOLUTE EOSINOPHILS # (AUTO) 0.1 10^3/uL (0.0-0.6); ABSOLUTE LYMPHOCYTES (AUTO) 1.7 10^3/uL (0.5-4.7); ABSOLUTE MONOCYTES (AUTO) 0.8 10^3/uL (0.1-1.4); ABSOLUTE NEUT (AUTO) 5.2 10^3/uL (1.7-8.2); BASOPHILS % (AUTO) 0.7 % (0-2); EOSINOPHILS % (AUTO) 1.8 % (0-6); HEMATOCRIT 36.4 % (36.0-47.0); HEMOGLOBIN 12.5 g/dL (12.0-15.5); LYMPHOCYTES % (AUTO) 21.8 % (13-45); MEAN CORPUSCULAR HEMOGLOBIN 32.4 pg (27.0-33.4); MEAN CORPUSCULAR HGB CONC 34.3 g/dL (32.0-36.0); MEAN CORPUSCULAR VOLUME 95 fl (80-97); PLATELET COUNT 207 10^3/uL (150-450); RED BLOOD COUNT 3.85 10^6/uL (3.72-5.28); RED CELL DISTRIBUTION WIDTH 12.8 % (11.5-14.0); SEGMENTED NEUTROPHILS % (AUTO) 65.7 % (42-78); TOTAL CELLS COUNTED % (AUTO) 100 %; WHITE BLOOD COUNT 7.9 10^3/uL (4.0-10.5)
[2017-05-31 03:34] LABS: ANION GAP 11 (5-19); BLOOD UREA NITROGEN 13 mg/dL (7-20); CALCIUM 9.4 mg/dL (8.4-10.2); CARBON DIOXIDE 24 mmol/L (22-30); CHLORIDE 106 mmol/L (98-107); GLUCOSE 99 mg/dL (75-110); POTASSIUM 4.4 mmol/L (3.6-5.0)
[2017-05-31] MEDS ORDERED: TRAMADOL HCL 50 MG TABLET PO ONE (03:47)
[2017-05-31 04:13] LABS: APPEARANCE,URINE CLEAR; BILIRUBIN,URINE NEGATIVE (NEGATIVE); COLOR,URINE YELLOW; GLUCOSE, URINE NEGATIVE (NEGATIVE); KETONES,URINE NEGATIVE (NEGATIVE); LEUKOCYTE ESTERASE,URINE NEGATIVE (NEGATIVE); NITRITE,URINE NEGATIVE (NEGATIVE); PROTEIN,URINE NEGATIVE (NEGATIVE); URINE SPECIFIC GRAVITY 1.021; UROBILINOGEN,URINE NEGATIVE mg/dL (<2.0)
[2017-05-31 05:00] VITALS: BP 127/72
== END 2017-05-31 05:00 | disposition home or self-care (01) ==
LOC: ER 01:31
DX: N39.0 Urinary tract infection, site not specified (principal); N83.209 Unspecified ovarian cyst, unspecified side; R50.9 Fever, unspecified; R31.9 Hematuria, unspecified; R11.2 Nausea with vomiting, unspecified; Z91.040 Latex allergy status; Z88.1 Allergy status to other antibiotic agents; Z88.8 Allergy status to other drugs, medicaments and biological substances
CPT/HCPCS: 99283; 96361; 96374; 96375; 36415; 85025; 80048; 81001; J1885; J3490; J2405; J7030

== ENCOUNTER 2018-03-23 16:54 | Emergency (ER) | payer OTHER, BC ==
--- NOTE | 2018-03-23 18:29 | ER Document Report ---
ED Medical Screen (RME) - General Chief Complaint: Neck Problem Stated Complaint: NECK PAIN Time Seen by Provider: 03/23/18 18:08 Mode of Arrival: Ambulatory Information source: Patient Notes: This is a 27-year-old female currently treated for influenza as well as an acute bronchitis (patient received Tamiflu, steroids, inhaler, Flonase). Patient states that she is been having a lot of sinus drainage. She also reports having a stiff neck. Patient denies any fever in the last day. She denies headache. She denies photophobia. She otherwise looks well. TRAVEL OUTSIDE OF THE [place] IN LAST 30 DAYS: No - HPI Onset: Last week Onset/Duration: Gradual Quality of pain: Dull Severity: Mild Associated Symptoms: Other - Recent URI. denies: Fever, Shortness of breath Exacerbated by: Movement Relieved by: Remaining still Similar symptoms previously: Yes Recently seen / treated by doctor: Yes - Related Data Smoking: Non-smoker Frequency of alcohol use: None Drug Abuse: None Allergies/Adverse Reactions: latex Allergy (Verified 05/31/17 03:13) Itching vancomycin Allergy (Verified 05/31/17 03:13) "red itchy scalp" bandaids Allergy (Uncoded 05/31/17 03:13) itching, redness Past Medical History - General Information source: Patient - Social History Cigarette use (# per day): No Chew tobacco use (# tins/day): No Frequency of alcohol use: None Drug Abuse: None Lives with: Family Family history: None - Past Medical History Cardiac Medical History: Denies: Hx Coronary Artery Disease, Hx Heart Attack, Hx Hypertension Pulmonary Medical History: Reports: Hx Bronchitis Denies: Hx Asthma - "asthma symptoms", Hx COPD, Hx Pneumonia Neurological Medical History: Denies: Hx Cerebrovascular Accident, Hx Seizures Renal/ Medical History: Denies: Hx Peritoneal Dialysis Musculoskeltal Medical History: Denies Hx Arthritis Past Surgical History: Reports: Hx Section, Hx Oral Surgery - wisdom teeth, Hx Orthopedic Surgery - Finger surgery yesterday, tendon reattachment ring finger left hand - Immunizations Hx Diphtheria, Pertussis, Tetanus Vaccination: Yes Review of Systems - Review of Systems Constitutional: denies: Fever - Patient denies any fever in the last few days. She recently was treated with a course of Tamiflu for presumptive flu. She was then treated with steroids/inhaler for presumptive bronchitis. EENT: See HPI Cardiovascular: denies: Chest pain, Palpitations, Heart racing Respiratory: See HPI Gastrointestinal: denies: Abdomen distended, Abdominal pain, Diarrhea Genitourinary: No symptoms reported Female Genitourinary: No symptoms reported Musculoskeletal: See HPI Skin: denies: Change in color, Rash Hematologic/Lymphatic: No symptoms reported Neurological/Psychological: Other - No photophobia. No headache. denies: Weakness, Gait changes, Loss of power Physical Exam - Vital signs Vitals: Temp Pulse Resp BP Pulse Ox 98.2 F 102 H 18 142/82 H 97 03/23/18 17:42 03/23/18 17:42 03/23/18 17:42 03/23/18 17:42 03/23/18 17:42 Notes: Physical exam: GENERAL: Is alert and oriented x3, her vital signs are stable, she is afebrile. HEAD: Atraumatic, normocephalic. EYES: Pupils equal round and reactive to light, extraocular movements intact, sclera anicteric, conjunctiva are normal. ENT: TMs normal, nares patent, oropharynx clear without exudates. Moist mucous membranes. She does have some maxillary sinus congestion. NECK: She does have stiffness in her neck, does have sensation of fullness at the base of her cervical spine at approximately C7: There is no skin changes there, no fluctuance, no evidence of infection. There is no obvious mass. LUNGS: Breath sounds clear to auscultation bilaterally and equal. No wheezes rales or rhonchi. HEART: Regular rate and rhythm without murmurs, rubs or gallops. ABDOMEN: Soft, normoactive bowel sounds. No tenderness to palpation. No guarding, no rebound. No masses appreciated. EXTREMITIES: Normal range of motion, no pitting or edema. No clubbing or cyanosis. NEUROLOGICAL: Cranial nerves II through XII grossly intact. Normal speech, moving all extremities. Patient has no photophobia. She is smiling on exam. PSYCH: Normal mood, normal affect. SKIN: Warm, Dry, normal turgor, no rashes or lesions noted. Course - Re-evaluation Re-evalutation: 03/23/18 19:37 Note: Patient has no evidence of meningitis. She does have torticollis in the setting of a recent upper respiratory infection (treated for influenza and bronchitis). Scan of her neck shows good alignment without any obvious pathology. I will have her follow-up with her primary care doctor on Monday. Will treat with muscle relaxers, NSAIDs and heat in the meantime. - Vital Signs Vital signs: Temp Pulse Resp BP Pulse Ox 98.2 F 102 H 18 142/82 H 97 03/23/18 17:42 03/23/18 17:42 03/23/18 17:42 03/23/18 17:42 03/23/18 17:42 - Diagnostic Test Radiology reviewed: Image reviewed, Reports reviewed - T of the cervical spine shows good alignment without any obvious spinal pathology Doctor's Discharge - Discharge Clinical Impression: Torticollis, acute Condition: Stable Disposition: HOME, SELF-CARE Instructions: Torticollis (COUNT INCLUDES THE [facility]) Additional Instructions: As we discussed, the CT scan of the neck (which goes down to the clavicles posteriorly) shows good alignment of the spine without any spinal lesions. The chest x-ray was clear. The mono test was negative. I think you are getting torticollis which is stiffening of the neck as a result of the recent upper respiratory infection. This is not uncommon. I wrote a prescription for some muscle relaxer: Take as prescribed. We will let you go home with a muscle relaxer tonight: Take when you get home because it may can make you sleepy. I also want you taking ibuprofen every 6 hours for the next few days. You can go with heating pads. Also, you can contact your chiropractor to see if they can massage some of the muscle spasm out. Your neurologic exam itself is very good and you had no signs of meningitis (light bothering the eyes, severe headache, fever). If your symptoms worsen, return to the emergency room for evaluation. Follow-up with your primary care doctor on Monday. Prescriptions: Tizanidine HCl 2 mg PO Q6HP PRN #20 tablet PRN Reason: Forms: Return to Work
--- NOTE | 2018-03-23 18:49 | RADIOLOGY REPORT (SQ) ---
EXAM DESCRIPTION: CHEST 2 VIEWS COMPLETED DATE/TIME: 03/23/2018 6:40 pm REASON FOR STUDY: right back pain COMPARISON: None. EXAM PARAMETERS: NUMBER OF VIEWS: two views TECHNIQUE: Digital Frontal and Lateral radiographic views of the chest acquired. RADIATION DOSE: NA LIMITATIONS: none FINDINGS: LUNGS AND PLEURA: No opacities, masses or pneumothorax. No pleural effusion. MEDIASTINUM AND HILAR STRUCTURES: No masses or contour abnormalities. HEART AND VASCULAR STRUCTURES: Heart normal size. No evidence for failure. BONES: No acute findings. HARDWARE: None in the chest. OTHER: No other significant finding. IMPRESSION: NO ACUTE RADIOGRAPHIC FINDING IN THE CHEST. TECHNICAL DOCUMENTATION: JOB ID: [id number] [employer]- All Rights Reserved Reading location - IP/workstation name: [email or web address]
--- NOTE | 2018-03-23 19:00 | RADIOLOGY REPORT (SQ) ---
EXAM DESCRIPTION: CT CERVICAL SPINE WITHOUT COMPLETED DATE/TIME: 03/23/2018 6:50 pm REASON FOR STUDY: stiff neck, swelling at C7 posteriorly COMPARISON: None. TECHNIQUE: Axial images acquired through the cervical spine without intravenous contrast. Images re viewed with lung, soft tissue and bone windows. Reconstructed coronal and sagittal MPR images review ed. Images stored on PACS. All CT scanners at this facility use dose modulation, iterative reconstruction, and/or weight based d osing when appropriate to reduce radiation dose to as low as reasonably achievable (ALARA). [facility]: Dose Right [facility]: CareDose [facility]: Dose Right [facility]: Teradose 4D [facility]: Smart [employer] RADIATION DOSE: CT Rad equipment meets quality standard of care and radiation dose reduction techniq ues were employed. CTDIvol: 20.5 mGy. DLP: 452 mGy-cm. mGy. LIMITATIONS: None. FINDINGS: ALIGNMENT: Anatomic. MINERALIZATION: Normal. VERTEBRAL BODIES: No fractures or dislocation. DISCS: No significant disc disease. FACETS, LATERAL MASSES, POSTERIOR ELEMENTS: No fractures. No dislocation. No acute findings. HARDWARE: None in the spine. VISUALIZED RIBS: No fractures. LUNG APICES AND SOFT TISSUES: No significant or acute findings. OTHER: No other significant finding. IMPRESSION: NO ACUTE OR SIGNIFICANT FINDINGS IN THE CERVICAL SPINE. TECHNICAL DOCUMENTATION: JOB ID: [id number] Quality ID # [id number]: Final reports with documentation of one or more dose reduction techniques (e.g., Au tomated exposure control, adjustment of the mA and/or kV according to patient size, use of iterative reconstruction technique) 2010 [email or web address]- All Rights Reserved Reading location - IP/workstation name: [email or web address]
[2018-03-23] MEDS ORDERED: CYCLOBENZAPRINE HCL 10 MG TABLET PO ONE (19:30)
[2018-03-23 19:39] VITALS: BP 126/80
== END 2018-03-23 19:50 | disposition home or self-care (01) ==
LOC: ER 16:54
DX: M43.6 Torticollis (principal); Z91.040 Latex allergy status; Z88.1 Allergy status to other antibiotic agents; Z88.8 Allergy status to other drugs, medicaments and biological substances
CPT/HCPCS: 36415; 71046; 72125; 86308; 99284

== ENCOUNTER 2018-04-13 01:52 | Emergency (ER) | payer OTHER, BC ==
[2018-04-13] MEDS ORDERED: ONDANSETRON HCL INJ/PF 4 MG/2 ML SDV IV ONE (02:25)
[2018-04-13] MEDS ORDERED: NORMAL SALINE 1000 ML 1,000 ML IV ONE (02:25)
[2018-04-13 03:12] LABS: ALANINE AMINOTRANSFERASE 18 U/L (9-52); ALKALINE PHOSPHATASE 55 U/L (38-126); ANION GAP 13 (5-19); ASPARTATE AMINO TRANSFERASE 18 U/L (14-36); BILIRUBIN,DIRECT 0.2 mg/dL (0.0-0.4); BILIRUBIN,TOTAL 0.5 mg/dL (0.2-1.3); BLOOD UREA NITROGEN 15 mg/dL (7-20); CALCIUM 10.2 mg/dL (8.4-10.2); CARBON DIOXIDE 26 mmol/L (22-30); CHLORIDE 107 mmol/L (98-107); GLUCOSE 103 mg/dL (75-110); POTASSIUM 4.2 mmol/L (3.6-5.0); SODIUM 145.7 mmol/L (137-145); TOTAL PROTEIN 7.8 g/dL (6.3-8.2)
[2018-04-13] MEDS ORDERED: ONDANSETRON ODT 4 MG TAB (6 TAB/ER DISP) PO PRN (03:28)
--- NOTE | 2018-04-13 03:33 | ER Document Report ---
ED General - General Chief Complaint: Vomiting/Diarrhea Stated Complaint: VOMITING Time Seen by Provider: 04/13/18 02:24 Primary Care Provider: NELSON LUIS MD [Primary Care Provider] - Follow up as needed Notes: Patient is a 27-year old female with past medical history of irritable bowel syndrome, presents with 24 hours of nausea, vomiting and diarrhea. Patient states that her symptoms started relatively abruptly, have been ongoing since that time. States they have improved somewhat after receiving Zofran and IV fluids here in the emergency department. Nothing was noted to worsen her symptoms. Denies history of similar symptoms in the recent past. Has not seen her primary care physician regarding today's concerns. Denies fever or constitutional symptoms. States that she did have some generalized abdominal cramping near episodes of diarrhea but that she no longer has any abdominal cramping. TRAVEL OUTSIDE OF THE [place] IN LAST 30 DAYS: No - Related Data Allergies/Adverse Reactions: latex Allergy (Verified 05/31/17 03:13) Itching vancomycin Allergy (Verified 05/31/17 03:13) "red itchy scalp" bandaids Allergy (Uncoded 05/31/17 03:13) itching, redness Past Medical History - General Information source: Patient - Social History Smoking Status: Never Smoker Chew tobacco use (# tins/day): No Frequency of alcohol use: None Drug Abuse: None Lives with: Spouse/Significant other Family History: Reviewed & Not Pertinent Patient has suicidal ideation: No Patient has homicidal ideation: No - Past Medical History Cardiac Medical History: Denies: Hx Coronary Artery Disease, Hx Heart Attack, Hx Hypertension Pulmonary Medical History: Reports: Hx Bronchitis Denies: Hx COPD, Hx Pneumonia Comment Only: Hx Asthma - "asthma symptoms" Neurological Medical History: Denies: Hx Cerebrovascular Accident, Hx Seizures Renal/ Medical History: Denies: Hx Peritoneal Dialysis Musculoskeletal Medical History: Denies Hx Arthritis Past Surgical History: Reports: Hx Section, Hx Oral Surgery - wisdom teeth, Hx Orthopedic Surgery - Finger surgery yesterday, tendon reattachment r ing finger left hand - Immunizations Hx Diphtheria, Pertussis, Tetanus Vaccination: Yes Review of Systems - Review of Systems Notes: Constitutional: Negative for fever. HENT: Negative for sore throat. Eyes: Negative for visual changes. Cardiovascular: Negative for chest pain. Respiratory: Negative for shortness of breath. Gastrointestinal: Negative for abdominal pain, positive for nausea, vomiting and diarrhea Genitourinary: Negative for dysuria. Musculoskeletal: Negative for back pain. Skin: Negative for rash. Neurological: Negative for headaches, weakness or numbness. 10 point ROS negative except as marked above and in HPI. Physical Exam - Vital signs Vitals: Temp Pulse Resp BP Pulse Ox 98.9 F 118 H 22 H 133/78 H 99 04/13/18 02:01 04/13/18 02:01 04/13/18 02:01 04/13/18 02:01 04/13/18 02:01 Interpretation: Tachycardic - Resolved at the time of my assessment, heart rate 90 Notes: PHYSICAL EXAMINATION: GENERAL: Well-appearing, well-nourished and in no acute distress. HEAD: Atraumatic, normocephalic. EYES: Pupils equal round and reactive to light, extraocular movements intact, sclera anicteric, conjunctiva are normal. ENT: nares patent, oropharynx clear without exudates. Mild dry mucous membranes. NECK: Normal range of motion, supple without lymphadenopathy LUNGS: Breath sounds clear to auscultation bilaterally and equal. No wheezes rales or rhonchi. HEART: Regular rate and rhythm without murmurs ABDOMEN: Soft, nontender, normoactive bowel sounds. No guarding, no rebound. No masses appreciated. EXTREMITIES: Normal range of motion, no pitting or edema. No cyanosis. NEUROLOGICAL: No focal neurological deficits. Moves all extremities spontaneously and on command. PSYCH: Normal mood, normal affect. SKIN: Warm, Dry, normal turgor, no rashes or lesions noted. Course - Re-evaluation Re-evalutation: 04/13/18 03:28 Presentation of an overall well-appearing patient in no acute distress with complaints of nausea, vomiting, diarrhea. This is consistent with likely viral gastroenteritis. Patient has no abdominal tenderness on exam and specifically no tenderness in the RLQ, LLQ, RUQ. Overall well hydrated on exam. Able to tolerate oral intake here in the emergency department. Low clinical suspicion for any acute life-threatening etiology based on exam and history including acute cholecystitis, SBO, appendicitis, nephrolithiasis, or pylonephritis. CMP without evidence of acute hepatitis or significant dehydration. At this time will discharge with return precautions and follow-up recommendations. Verbal discharge instructions given a the bedside and opportunity for questions given. Medication warnings reviewed. Patient is in agreement with this plan and has verbalized understanding of return precautions and the need for primary care follow-up in the next 24-72 hours. - Vital Signs Vital signs: Temp Pulse Resp BP Pulse Ox 98.9 F 118 H 22 H 133/78 H 99 04/13/18 02:01 04/13/18 02:01 04/13/18 02:01 04/13/18 02:01 04/13/18 02:01 - Laboratory Result Diagrams: 04/13/18 02:46 Laboratory results interpreted by me: 04/13/18 02:46 Sodium 145.7 H Discharge - Discharge Clinical Impression: Nausea vomiting and diarrhea, Dehydration Condition: Good Disposition: HOME, SELF-CARE Additional Instructions: Your symptoms are likely due to a viral illness and should resolve in the next several days. You can take [id number] loperamide also known as Imodium as needed for diarrhea per box instructions. Continue to stay hydrated with plenty of solution such as Gatorade or Pedialyte. You are being prescribed Zofran to take as needed for nausea and vomiting. Please return if you develop severe abdominal pain, pass out, become unable to tolerate any oral fluids for 12 more hours, or any other symptoms that are concerning to you. Referrals: NELSON LUIS MD [Primary Care Provider] - Follow up as needed
[2018-04-13 03:53] VITALS: BP 127/74
== END 2018-04-13 03:53 | disposition home or self-care (01) ==
LOC: ER 01:52
DX: R11.2 Nausea with vomiting, unspecified (principal); R19.7 Diarrhea, unspecified; E86.0 Dehydration; R10.84 Generalized abdominal pain; J45.909 Unspecified asthma, uncomplicated
CPT/HCPCS: 99284; 96361; 96374; 36415; 84703; 80053; J2405; J7030

== ENCOUNTER 2018-05-30 19:29 | Emergency (ER) | payer OTHER, BC ==
[2018-05-30 19:52] VITALS: BP 133/80
--- NOTE | 2018-05-30 22:37 | ER Document Report ---
ED General - General Chief Complaint: Shoulder Injury Stated Complaint: LEFT SHOULDER PAIN Time Seen by Provider: 05/30/18 22:17 Primary Care Provider: NELSON LUIS MD [COMMUNITY BASED STAFF] - Follow up as needed Mode of Arrival: Ambulatory Information source: Patient TRAVEL OUTSIDE OF THE [place] IN LAST 30 DAYS: No - HPI Patient complains to provider of: Left shoulder injury Onset: Other - 3 days ago Onset/Duration: Persistent Quality of pain: Sharp Severity: Severe Pain Level: 5 Associated symptoms: None Exacerbated by: Denies Relieved by: Denies Similar symptoms previously: No Recently seen / treated by doctor: No Notes: 28-year-old female coming in today with left shoulder injury. 3 days ago she fell in a pool and in efforts to get out twisted her left shoulder and was left with some excruciating residual pain and decrease in her ability to move the shoulder and raise her arm above her head. Apparently followed up the next day or so at the walk-in clinic. X-rays were negative at that time. She was told she needed an MRI and she was also told that she need to come to the emergency department to get it since it was not already preapproved. - Related Data Allergies/Adverse Reactions: latex Allergy (Verified 05/30/18 19:40) Itching vancomycin Allergy (Verified 05/30/18 19:40) "red itchy scalp" bandaids Allergy (Uncoded 05/30/18 19:40) itching, redness Past Medical History - General Information source: Patient - Social History Smoking Status: Smoker,Current Status Unk Family History: Reviewed & Not Pertinent - Past Medical History Cardiac Medical History: Denies: Hx Coronary Artery Disease, Hx Heart Attack, Hx Hypertension Pulmonary Medical History: Reports: Hx Bronchitis Denies: Hx COPD, Hx Pneumonia Comment Only: Hx Asthma - "asthma symptoms" Neurological Medical History: Denies: Hx Cerebrovascular Accident, Hx Seizures Renal/ Medical History: Denies: Hx Peritoneal Dialysis Musculoskeletal Medical History: Denies Hx Arthritis Past Surgical History: Reports: Hx Section, Hx Oral Surgery - wisdom teeth, Hx Orthopedic Surgery - Finger surgery yesterday, tendon reattachment ring finger left hand - Immunizations Hx Diphtheria, Pertussis, Tetanus Vaccination: Yes Review of Systems - Review of Systems Notes: Constitutional: No fevers. No chills. EENT: No eye redness. No eye pain. No ear pain. No sore throat. Cardiovascular: No chest pain. No palpitations. Respiratory: No cough. No shortness of breath. No respiratory distress. Gastrointestinal: No abdominal pain. No nausea, vomiting, or diarrhea. Genitourinary: Atraumatic. No lesions. No pain. No discharge. Musculoskeletal: Atraumatic. No swelling. No deformities. Left shoulder pain Skin: No rash or lesions. Lymphatic: No swollen lymph nodes. Neurologic: No headache. No syncope. Psychiatric: No suicidal or homicidal ideation. Physical Exam - Vital signs Vitals: Temp Pulse Resp BP Pulse Ox 98.8 F 107 H 16 133/80 H 91 L 05/30/18 19:50 05/30/18 19:50 05/30/18 19:50 05/30/18 19:50 05/30/18 19:50 - Notes Notes: General: Well-developed, well-nourished. In no acute distress. Non-toxic appearing. Cardiac: Well-perfused. Regular rate and rhythm. No murmurs, rubs, or gallops. Pulmonary: No respiratory distress. No cyanosis. Bilateral lung fiels are clear to auscultation. Abdominal: Non-distended. Non-rigid. Bowels sounds are present in all four quadrants. No guarding or rebound. HEENT: Head is atraumatic. Conjunctivae not reddened. No tearing. PERRL. EOMI. Orbits atraumatic. No periorbital swelling or erythema. Oropharynx is without erythema, swelling, or exudates. Neck: Supple. No adenopathy. No meningismus. Dermatologic: Warm with good turgor. No rash. Atraumatic. Chest: Atraumatic. No chest wall tenderness to palpation. Musculoskeletal: Diffuse left shoulder tenderness. No deformity. No AC joint tenderness. Range of motion is diminished in all planes on the left shoulder secondary to pain. There is no gross edema or redness of the upper extremity. Distal neurovascular exam is intact Genitourinary: Examination deferred Neurologic: No gross neurologic deficits. Psychiatric: Normal mood. Course - Re-evaluation Re-evalutation: 05/30/18 22:37 Patient has a suspected rotator cuff injury. I had to let her know that we do not routinely do MRI scans in the emergency department. We will go ahead and give her a prescription for some pain medicine and will have her follow-up with orthopedics. - Vital Signs Vital signs: Temp Pulse Resp BP Pulse Ox 98.8 F 107 H 16 133/80 H 91 L 05/30/18 19:50 05/30/18 19:50 05/30/18 19:50 05/30/18 19:50 05/30/18 19:50 Discharge - Discharge Clinical Impression: Injury of left rotator cuff Qualifiers: Encounter type: initial encounter Qualified Code(s): S46.002A - Unspecified injury of muscle(s) and tendon(s) of the rotator cuff of left shoulder, initial encounter Condition: Good Disposition: HOME, SELF-CARE Instructions: Oral Narcotic Medication ([facility]), Rotator Cuff Injury ([facility]) Additional Instructions: Call tomorrow for the soonest appointment to see the orthopedist. Please indicate you are seen in the emergency department Prescriptions: Hydrocodone/Acetaminophen [[place] 5-325 mg Tablet] 1 tab PO Q6H #10 tablet Referrals: NELSON LUIS MD [COMMUNITY BASED STAFF] - Follow up as needed
[2018-05-30] MEDS ORDERED: HYDROCODONE/ACETAMINOPHEN 5-325 MG (6 TAB/ER DISP) PO PRN (22:39)
== END 2018-05-30 22:55 | disposition home or self-care (01) ==
LOC: ER 19:29
DX: S46.002A Unspecified injury of muscle(s) and tendon(s) of the rotator cuff of left shoulder, initial encounter (principal); X50.0XXA Overexertion from strenuous movement or load, initial encounter; Z88.3 Allergy status to other anti-infective agents; Z91.040 Latex allergy status
CPT/HCPCS: 99283

== ENCOUNTER 2018-08-20 22:32 | Emergency (ER) | payer BC, OTHER ==
--- NOTE | 2018-08-21 01:40 | ER Document Report ---
ED Medical Screen (RME) - General Chief Complaint: Shortness Of Breath Stated Complaint: SHORTNESS OF BREATH Time Seen by Provider: 08/21/18 01:36 Mode of Arrival: Ambulatory Information source: Patient Notes: 28-year-old female presents to ED for cough cold congestion and fever. She states she had a fever on Monday of 101.9 and on Monday about 1930 she had a fever of 101.7 and took ibuprofen. By the time she came to the emergency room she was 98.8 at the time of my examination she was 98.8. Patient is alert oriented respirations regular and unlabored. No wheezes noted during her exam. We will get blood and chest x-ray she is already had her EKG. Patient states she had bronchitis and walking pneumonia couple months ago and they gave her an inhaler and she is been using the inhaler for her wheezing. She also has a history of ovarian cyst and IBS. She states she has had surgeries for wisdom teeth ovarian cyst and tendon repair on the finger. I have greeted and performed a rapid initial assessment of this patient. A comprehensive ED assessment and evaluation of the patient, analysis of test results and completion of medical decision making process will be conducted by an additional ED providers. Dictation of this chart was performed using voice recognition software; therefore, there may be some unintended grammatical errors. TRAVEL OUTSIDE OF THE [place] IN LAST 30 DAYS: No - Related Data Allergies/Adverse Reactions: latex Allergy (Verified 05/30/18 19:40) Itching vancomycin Allergy (Verified 05/30/18 19:40) "red itchy scalp" bandaids Allergy (Uncoded 05/30/18 19:40) itching, redness Past Medical History - Social History Family history: None - Past Medical History Cardiac Medical History: Denies: Hx Coronary Artery Disease, Hx Heart Attack, Hx Hypertension Pulmonary Medical History: Reports: Hx Bronchitis Denies: Hx COPD, Hx Pneumonia Comment Only: Hx Asthma - "asthma symptoms" Neurological Medical History: Denies: Hx Cerebrovascular Accident, Hx Seizures Renal/ Medical History: Denies: Hx Peritoneal Dialysis Musculoskeltal Medical History: Denies Hx Arthritis Past Surgical History: Reports: Hx Section, Hx Oral Surgery - wisdom teeth, Hx Orthopedic Surgery - Finger surgery yesterday, tendon reattachment ring finger left hand - Immunizations Hx Diphtheria, Pertussis, Tetanus Vaccination: Yes Physical Exam - Vital signs Vitals: Temp Pulse BP Pulse Ox 98.6 F 97 141/84 H 96 08/20/18 23:37 08/20/18 23:37 08/20/18 23:37 08/20/18 23:37 Course - Vital Signs Vital signs: Temp Pulse Resp BP Pulse Ox 98.5 F 91 20 134/82 H 96 08/21/18 01:11 08/21/18 01:11 08/21/18 01:11 08/21/18 01:11 08/21/18 01:11
[2018-08-21 02:01] LABS: ABSOLUTE BASOPHILS # (AUTO) 0.1 10^3/uL (0.0-0.2); ABSOLUTE EOSINOPHILS # (AUTO) 0.2 10^3/uL (0.0-0.6); ABSOLUTE LYMPHOCYTES (AUTO) 2.2 10^3/uL (0.5-4.7); ABSOLUTE MONOCYTES (AUTO) 0.5 10^3/uL (0.1-1.4); ABSOLUTE NEUT (AUTO) 3.9 10^3/uL (1.7-8.2); BASOPHILS % (AUTO) 0.8 % (0-2); EOSINOPHILS % (AUTO) 3.6 % (0-6); HEMATOCRIT 38.1 % (36.0-47.0); HEMOGLOBIN 12.9 g/dL (12.0-15.5); LYMPHOCYTES % (AUTO) 32.2 % (13-45); MEAN CORPUSCULAR HEMOGLOBIN 32.2 pg (27.0-33.4); MEAN CORPUSCULAR VOLUME 95 fl (80-97); MONOCYTES % (AUTO) 7.3 % (3-13); PLATELET COUNT 233 10^3/uL (150-450); RED BLOOD COUNT 4.01 10^6/uL (3.72-5.28); RED CELL DISTRIBUTION WIDTH 13.4 % (11.5-14.0); SEGMENTED NEUTROPHILS % (AUTO) 56.1 % (42-78); TOTAL CELLS COUNTED % (AUTO) 100 %; WHITE BLOOD COUNT 6.9 10^3/uL (4.0-10.5)
--- NOTE | 2018-08-21 02:33 | RADIOLOGY REPORT (SQ) ---
Chest 2 view on 08/21/2018 at 2:09 AM CLINICAL INDICATION: Cough, congestion, fever COMPARISON: 03/23/2018 FINDINGS: The lungs are clear. Cardiac, hilar and mediastinal contours are within normal limits. Pulmonary vascularity is within normal limits. No bony abnormality is noted. IMPRESSION: No active disease.
[2018-08-21 05:31] VITALS: BP 136/80
[2018-08-21] MEDS ORDERED: ALBUTEROL SULFATE HFA (90 MCG/PUFF) 8 GM MDI (1 MDI/ER DISP) IH ONE (06:42)
[2018-08-21] MEDS ORDERED: IPRATROPIUM/ALBUTEROL 0.5-2.5 MG/3 ML AMPUL NEB ONE (06:42)
--- NOTE | 2018-08-21 06:43 | ER Document Report ---
ED General - General Chief Complaint: Shortness Of Breath Stated Complaint: SHORTNESS OF BREATH Time Seen by Provider: 08/21/18 01:36 Primary Care Provider: PEPPER HERNÁNDEZ PA [Primary Care Provider] - Follow up as needed Mode of Arrival: Ambulatory Notes: Patient is a 28-year-old female that presents to the emergency department for chief complaint of wheezing, cough. Patient states that she is been having cough, wheezing, and fever intermittently over the past 10 days. Cough and wheezing has been constant, fever is mainly over the past couple days. She is been taken ibuprofen which has relieved the fever. She is afebrile on presentation today. She has an albuterol inhaler that she has been using, which has help with the wheezing, but her cough is continued and has not improved so she decided come to the emergency department to be evaluated. She is had some pain with the cough, which she describes as sharp, 4 out of 10, and across all of her ribs, not one side or the other.. Denies any palpitations. Denies any nausea, vomiting, dysuria, hematuria, abdominal pain. No other complaints at this time. Past Medical History: Asthma, irritable bowel syndrome Past Surgical History: , finger surgery Social History: Admits to smoking cigarettes, on occasion, occasional alcohol use as well. Family History: Reviewed and noncontributory for presenting illness Allergies: Reviewed, see documented allergy list. REVIEW OF SYSTEMS: Other than noted above, the 12 point review of systems was reviewed with the patient and were negative, all pertinent findings are included in the HPI. PHYSICAL EXAMINATION: Vital signs reviewed, nursing noted reviewed. GENERAL: Well-appearing, well-nourished and in no acute distress. HEAD: Atraumatic, normocephalic. EYES: Eyes appear normal, extraocular movements intact, sclera anicteric, conjunctiva are normal. ENT: nares patent, oropharynx clear without exudates. Moist mucous membranes. NECK: Normal range of motion, supple without lymphadenopathy LUNGS: Diffuse expiratory wheezing noted throughout all lung you, without respiratory distress HEART: Regular rate and rhythm without murmurs ABDOMEN: Soft, nontender, normoactive bowel sounds. No rebound, guarding, or rigidity. No masses appreciated. EXTREMITIES: Nontender, good range of motion, no pitting or edema. NEUROLOGICAL: No focal neurological deficits. Moves all extremities spontaneously Motor and sensory grossly intact on exam. PSYCH: Normal mood, normal affect. SKIN: Warm, Dry, normal turgor, no rashes or lesions noted on exposed skin TRAVEL OUTSIDE OF THE [place] IN LAST 30 DAYS: No - Related Data Allergies/Adverse Reactions: latex Allergy (Verified 05/30/18 19:40) Itching vancomycin Allergy (Verified 05/30/18 19:40) "red itchy scalp" bandaids Allergy (Uncoded 05/30/18 19:40) itching, redness Past Medical History - General Information source: Patient - Social History Smoking Status: Current Some Day Smoker Chew tobacco use (# tins/day): No Frequency of alcohol use: Social Drug Abuse: None Family History: Reviewed & Not Pertinent Patient has suicidal ideation: No Patient has homicidal ideation: No - Past Medical History Cardiac Medical History: Denies: Hx Coronary Artery Disease, Hx Heart Attack, Hx Hypertension Pulmonary Medical History: Reports: Hx Bronchitis Denies: Hx COPD, Hx Pneumonia Comment Only: Hx Asthma - "asthma symptoms" Neurological Medical History: Denies: Hx Cerebrovascular Accident, Hx Seizures Renal/ Medical History: Denies: Hx Peritoneal Dialysis Musculoskeletal Medical History: Denies Hx Arthritis Past Surgical History: Reports: Hx Section, Hx Oral Surgery - wisdom teeth, Hx Orthopedic Surgery - Finger surgery yesterday, tendon reattachment ring finger left hand - Immunizations Hx Diphtheria, Pertussis, Tetanus Vaccination: Yes Physical Exam - Vital signs Vitals: Temp Pulse BP Pulse Ox 98.6 F 97 141/84 H 96 08/20/18 23:37 08/20/18 23:37 08/20/18 23:37 08/20/18 23:37 Course - Re-evaluation Re-evalutation: Patient seen and examined vital signs reviewed. Laboratory data and/or imaging were ordered as appropriate for the patient's presenting symptoms and complaint, with consideration of any critical or life threatening conditions that may be associated with their obtained history and exam as noted above. Patient was treated with DuoNeb breathing treatment Results were reviewed when available and demonstrated unremarkable work-up, negative chest x-ray, and blood work, negative troponin that was ordered in triage The patient was re-evaluated and was stable and improved Evaluation was most consistent with acute asthma exacerbation, with bronchospasm, given the patient's symptoms have been going on for nearly 2 weeks, she is had fever, will treat with azithromycin, steroids, and give the patient an additional albuterol inhaler. Results were discussed with the patient at this point, after careful consideration I feel that that patient can be discharged from the emergency depa rtment, the patient was educated treatments and reasons to return to the emergency department based on their presumed diagnosis as noted above, they were advised to followup with a primary care physician in 2-3 days. Patient was agreeable to plan of care. *Note is created using voice recognition software and may contain spelling, syntax or grammatical errors. Laboratory 08/21/18 08/21/18 08/21/18 01:50 01:50 01:50 WBC 6.9 RBC 4.01 Hgb 12.9 Hct 38.1 MCV 95 MCH 32.2 MCHC 34.0 RDW 13.4 Plt Count 233 Seg Neutrophils % 56.1 Lymphocytes % 32.2 Monocytes % 7.3 Eosinophils % 3.6 Basophils % 0.8 Absolute Neutrophils 3.9 Absolute Lymphocytes 2.2 Absolute Monocytes 0.5 Absolute Eosinophils 0.2 Absolute Basophils 0.1 Troponin I < 0.012 Serum HCG, Qual NEGATIVE Chest X-Ray 08/21/18 01:37 IMPRESSION: No active disease. - Vital Signs Vital signs: Temp Pulse Resp BP Pulse Ox 98.4 F 87 16 136/80 H 100 08/21/18 05:30 08/21/18 05:30 08/21/18 05:30 08/21/18 05:30 08/21/18 05:30 - Laboratory Result Diagrams: 08/21/18 01:50 Discharge - Discharge Clinical Impression: Acute bronchospasm, Cough Condition: Stable Disposition: HOME, SELF-CARE Instructions: Bronchitis With Bronchospasm (Wheezing) ([facility]) Additional Instructions: Please use the albuterol inhaler, 2 puffs, every 4-6 hours if needed for wheezing and shortness of breath, complete the entire course of steroids as prescribed, as well as the prescribed antibiotic. Please follow-up with her primary care physician sometime this week or early next week. If you have worsening symptoms, do not hesitate to return to the emergency department. Prescriptions: Azithromycin [Zithromax 250 mg Tablet] 250 mg PO ASDIR #6 tablet Prednisone 50 mg PO DAILY #25 tablet Referrals: PEPPER HERNÁNDEZ PA [Primary Care Provider] - Follow up in 3-5 days
--- NOTE | 2018-08-21 18:52 | EKG REPORT ---
SEVERITY:- BORDERLINE ECG - SINUS TACHYCARDIA BORDERLINE T ABNORMALITIES, DIFFUSE LEADS : Confirmed by: Dennys Ardon MD 21-Aug-2018 18:51:50
== END 2018-08-21 07:30 | disposition home or self-care (01) ==
LOC: ER 22:32
DX: J45.909 Unspecified asthma, uncomplicated (principal); R05 Cough; R06.02 Shortness of breath; F17.210 Nicotine dependence, cigarettes, uncomplicated
CPT/HCPCS: 93005; 94640; 99285; 36415; 84703; 85025; 84484; 71046; 93010; J3490; J7620

== ENCOUNTER 2019-02-04 10:55 | Emergency (ER) | payer OTHER ==
[2019-02-04 11:03] VITALS: BP 137/92
--- NOTE | 2019-02-04 12:12 | ER Document Report ---
ED Medical Screen (RME) - General Chief Complaint: Pelvic Problem Stated Complaint: PELVIC PAIN Time Seen by Provider: 02/04/19 12:07 Primary Care Provider: PEPPER HERNÁNDEZ PA [Primary Care Provider] - Follow up as needed Mode of Arrival: Ambulatory Information source: Patient Notes: Patient presents emergency department with right-sided pelvic pain lower abdominal pain, abdominal pressure relieved after she voids. She reports she has had several positive home test. She went to [facility] 4 days ago and was informed she was not . She had an appointment with her primary care provider but they were unable to do test today so they sent her here. He denies vomiting diarrhea. She denies vaginal discharge denies vaginal bleeding. G2, P1, last menstrual period December 23 I have greeted and performed a rapid initial assessment of this patient. A comprehensive ED assessment and evaluation of the patient, analysis of test results and completion of the medical decision making process will be conducted by additional ED providers. TRAVEL OUTSIDE OF THE [place] IN LAST 30 DAYS: No - Related Data Allergies/Adverse Reactions: latex Allergy (Verified 02/04/19 12:02) Itching vancomycin Allergy (Verified 02/04/19 12:02) "red itchy scalp" bandaids Allergy (Uncoded 02/04/19 12:02) itching, redness Past Medical History - Social History Family history: None - Past Medical History Cardiac Medical History: Denies: Hx Coronary Artery Disease, Hx Heart Attack, Hx Hypertension Pulmonary Medical History: Reports: Hx Bronchitis Denies: Hx COPD, Hx Pneumonia Comment Only: Hx Asthma - "asthma symptoms" Neurological Medical History: Denies: Hx Cerebrovascular Accident, Hx Seizures Renal/ Medical History: Denies: Hx Peritoneal Dialysis Musculoskeltal Medical History: Denies Hx Arthritis Past Surgical History: Reports: Hx Section, Hx Oral Surgery - wisdom teeth, Hx Orthopedic Surgery - Finger surgery yesterday, tendon reattachment ring finger left hand - Immunizations Hx Diphtheria, Pertussis, Tetanus Vaccination: Yes Physical Exam - Vital signs Vitals: Temp Pulse Resp BP Pulse Ox 98.1 F 111 H 16 137/92 H 99 02/04/19 11:02 02/04/19 11:02 02/04/19 11:02 02/04/19 11:02 02/04/19 11:02 Course - Vital Signs Vital signs: Temp Pulse Resp BP Pulse Ox 98.1 F 111 H 16 137/92 H 99 02/04/19 11:02 02/04/19 11:02 02/04/19 11:02 02/04/19 11:02 02/04/19 11:02 Doctor's Discharge - Discharge Referrals: PEPPER HERNÁNDEZ PA [Primary Care Provider] - Follow up as needed
[2019-02-04 12:34] LABS: ABSOLUTE BASOPHILS # (AUTO) 0.1 10^3/uL (0.0-0.2); ABSOLUTE EOSINOPHILS # (AUTO) 0.2 10^3/uL (0.0-0.6); ABSOLUTE LYMPHOCYTES (AUTO) 2.3 10^3/uL (0.5-4.7); ABSOLUTE MONOCYTES (AUTO) 0.7 10^3/uL (0.1-1.4); ABSOLUTE NEUT (AUTO) 5.4 10^3/uL (1.7-8.2); BASOPHILS % (AUTO) 0.9 % (0-2); EOSINOPHILS % (AUTO) 2.4 % (0-6); HEMATOCRIT 42.4 % (36.0-47.0); HEMOGLOBIN 14.4 g/dL (12.0-15.5); LYMPHOCYTES % (AUTO) 26.2 % (13-45); MEAN CORPUSCULAR HEMOGLOBIN 32.2 pg (27.0-33.4); MEAN CORPUSCULAR VOLUME 95 fl (80-97); MONOCYTES % (AUTO) 8.5 % (3-13); PLATELET COUNT 284 10^3/uL (150-450); RED BLOOD COUNT 4.47 10^6/uL (3.72-5.28); RED CELL DISTRIBUTION WIDTH 13.3 % (11.5-14.0); TOTAL CELLS COUNTED % (AUTO) 100 %; WHITE BLOOD COUNT 8.8 10^3/uL (4.0-10.5)
[2019-02-04 12:41] LABS: APPEARANCE,URINE CLEAR; BILIRUBIN,URINE NEGATIVE (NEGATIVE); COLOR,URINE YELLOW; GLUCOSE, URINE NEGATIVE (NEGATIVE); KETONES,URINE NEGATIVE (NEGATIVE); PROTEIN,URINE NEGATIVE (NEGATIVE); URINE SPECIFIC GRAVITY 1.016; UROBILINOGEN,URINE NEGATIVE mg/dL (<2.0)
[2019-02-04 12:54] LABS: ALBUMIN 4.4 g/dL (3.5-5.0); ALKALINE PHOSPHATASE 50 U/L (38-126); ANION GAP 12 (5-19); ASPARTATE AMINO TRANSFERASE 20 U/L (14-36); BILIRUBIN,DIRECT 0.2 mg/dL (0.0-0.4); BILIRUBIN,TOTAL 0.5 mg/dL (0.2-1.3); BLOOD UREA NITROGEN 12 mg/dL (7-20); CALCIUM 9.7 mg/dL (8.4-10.2); CARBON DIOXIDE 23 mmol/L (22-30); CHLORIDE 105 mmol/L (98-107); GLUCOSE 89 mg/dL (75-110); POTASSIUM 4.1 mmol/L (3.6-5.0); TOTAL PROTEIN 7.6 g/dL (6.3-8.2)
--- NOTE | 2019-02-04 13:46 | RADIOLOGY REPORT (SQ) ---
EXAM DESCRIPTION: U/S OB TRANSVAGINAL W/O DOP COMPLETED DATE/TIME: 02/04/2019 12:45 pm REASON FOR STUDY: preg, pain COMPARISON: None. TECHNIQUE: Transvaginal static and realtime grayscale images acquired of the pelvis. Additional jose de jesus cted spectral and color Doppler images recorded. All images stored on PACs. bHCG: Pending CLINICAL DATES: LMP 12/23/2018. 6 weeks 1 day. LIMITATIONS: None. FINDINGS: There is no intrauterine gestation at this time. UTERUS: No masses. No anomalies. CERVICAL LENGTH: 1.9 cm. Closed. RIGHT ADNEXA: Normal ovary with normal vascular flow. 3.8 x 2.2 x 2.6 cm. No adnexal free fluid. No adnexal masses. LEFT ADNEXA: Normal ovary with normal vascular flow. 4 x 2.6 x 2.4 cm. There is a 1.8 x 1.4 x 2.1 c m somewhat complex area in the left ovary, possible involuting cyst. No adnexal free fluid. No adnexal masses. FREE FLUID: None. OTHER: Endometrium measures 7.5 mm. IMPRESSION: There is no intrauterine gestation at this time. Follow-up as clinically indicated. Is what possibly represents an involuting cyst on the left ovary. TECHNICAL DOCUMENTATION: JOB ID: [id number]- All Rights Reserved rev-06/23 Reading location - IP/workstation name: [email or web address]
--- NOTE | 2019-02-04 14:08 | ER Document Report ---
ED GI/ - General Chief Complaint: Pelvic Problem Stated Complaint: PELVIC PAIN Time Seen by Provider: 02/04/19 12:07 Primary Care Provider: PEPPER HERNÁNDEZ PA [Primary Care Provider] - Follow up as needed Mode of Arrival: Ambulatory Notes: patient is a G2, P1 28-year-old female presents to the emergency department with a chief complaint of right-sided pelvic pain. Her last menstrual cycle was December 23. Her pain started 4 days ago. She went to [facility] at that time and her urine was negative. They did not draw a serum . She went to her primary care provider today, but due to not having ultrasound, she was referred here to the emergency department. Patient states that she has had some diarrhea, but she has irritable bowel syndrome and states that this is normal. Patient has a history of irritable bowel syndrome, and does not take any medications. Denies any vaginal discharge. TRAVEL OUTSIDE OF THE [place] IN LAST 30 DAYS: No - Related Data Allergies/Adverse Reactions: latex Allergy (Verified 02/04/19 12:02) Itching vancomycin Allergy (Verified 02/04/19 12:02) "red itchy scalp" bandaids Allergy (Uncoded 02/04/19 12:02) itching, redness Past Medical History - General Information source: Patient - Social History Smoking Status: Never Smoker Family History: Reviewed & Not Pertinent Patient has suicidal ideation: No Patient has homicidal ideation: No - Past Medical History Cardiac Medical History: Denies: Hx Coronary Artery Disease, Hx Heart Attack, Hx Hypertension Pulmonary Medical History: Reports: Hx Bronchitis Denies: Hx COPD, Hx Pneumonia Comment Only: Hx Asthma - "asthma symptoms" Neurological Medical History: Denies: Hx Cerebrovascular Accident, Hx Seizures Renal/ Medical History: Denies: Hx Peritoneal Dialysis Musculoskeletal Medical History: Denies Hx Arthritis Past Surgical History: Reports: Hx Section, Hx Oral Surgery - wisdom teeth, Hx Orthopedic Surgery - Finger surgery yesterday, tendon reattachment ring finger left hand - Immunizations Hx Diphtheria, Pertussis, Tetanus Vaccination: Yes Review of Systems - Review of Systems Notes: REVIEW OF SYSTEMS: CONSTITUTIONAL : Denies recent illness. Denies recent unintentional weight loss. Denies fever, chills, or sweats. EENT: Denies eye, ear, throat, or mouth pain, discharge, or symptoms. Denies nasal or sinus congestion. CARDIOVASCULAR: Denies chest pain. RESPIRATORY: Denies shortness of breath, cough, congestion, difficulty breathing, or wheezing. GASTROINTESTINAL: Denies nausea, vomiting, and diarrhea. Denies abdominal pain. Denies constipation. GENITOURINARY: Denies difficulty urinating, burning, blood in urine, urgency or frequency. FEMALE GENITOURINARY: See HPI. MUSCULOSKELETAL: Denies neck and back pain. Denies joint pain or swelling. SKIN: Denies rash, itchiness, or lesions HEMATOLOGIC : Denies easy bruising or bleeding. LYMPHATIC: Denies swollen, painful, enlarged glands. NEUROLOGICAL: Denies no numbness or tingling denies weakness. Denies headache. Denies altered mental status. Denies alteration in speech. PSYCHIATRIC: Denies stress, anxiety, alteration in sleep patterns, or dep ression. All other systems reviewed and negative. Physical Exam - Vital signs Vitals: Temp Pulse Resp BP Pulse Ox 98.1 F 111 H 16 137/92 H 99 02/04/19 11:02 02/04/19 11:02 02/04/19 11:02 02/04/19 11:02 02/04/19 11:02 - Notes Notes: PHYSICAL EXAMINATION: GENERAL: Appears well, healthy, well-nourished, no acute distress. HEAD: Normocephalic, atraumatic. EYES: PERRL, conjunctiva normal, all extraocular movements intact, sclera nonicteric ENT: Moist mucous membranes. NECK: Supple, no noticeable swelling, redness, rash. Normal range of motion. LUNGS: Equal breath sounds bilaterally and clear to auscultation. No wheezes rales or rhonchi. CARDIOVASCULAR: S1-S2, regular rate, regular rhythm. Radial pulses 2+, normal. ABDOMEN: Normoactive bowel sounds. Soft, mildly tender right lower abdomen, no guarding, no rebound tenderness, and no masses palpated. EXTREMITIES: Normal strength and range of motion, no pitting or edema. No cyanosis. NEUROLOGICAL: Moves all extremities upon command. Strength 5/5 in all extremities. PSYCH: Normal mood, normal affect. SKIN: Warm, dry. No rash, lesions, ulcerations noted. Normal skin turgor. Course - Re-evaluation Re-evalutation: 02/04/19 14:19 Hematology is unremarkable chemistries show a quantitative beta-hCG of 293. Ultrasound shows no intrauterine gestation at this time. Dr. Resendez has been paged. Will await callback from her. I have a very low suspicion for appendicitis, as the patient appears well. No leukocytosis noted. Very low suspicion for any other life-threatening etiology at this time. 02/04/19 14:[address] Resendez, the [employer] customer service and sales consultant. Discussed lab results and ultrasound with her. Patient is to have her hCG redrawn in 48 hours. She will follow[facility]up with [facility] in regards to this visit. Discussed this with the patient. She is in agreement with this plan. Follow-up precautions were given. Verbal discharge instructions were given to the patient. They verbalized understanding. They are stable for discharge. - Vital Signs Vital signs: Temp Pulse Resp BP Pulse Ox 98.1 F 111 H 16 137/92 H 99 02/04/19 11:02 02/04/19 11:02 02/04/19 11:02 02/04/19 11:02 02/04/19 11:02 - Laboratory Result Diagrams: 02/04/19 12:12 02/04/19 12:12 Laboratory results interpreted by me: 02/04/19 12:12 Beta HCG, Quant 293.29 H Discharge - Discharge Clinical Impression: Positive test Abdominal pain Qualifiers: Abdominal location: right lower quadrant Qualified Code(s): R10.31 - Right lower quadrant pain Condition: Stable Disposition: HOME, SELF-CARE Additional Instructions: You were seen today in the emergency department for abdominal pain. Your blood test came back positive. Please have your blood redrawn in 2 days. Please follow-up with [employer] in regards to this visit. If you have worsening pain, please return to the emergency department. Please take Tylenol 1000 mg every 6 hours as needed for your pain. Forms: Follow-Up Laboratory Testing Referrals: PEPPER HERNÁNDEZ PA [Primary Care Provider] - Follow up as needed [facility] [Provider Group] - Follow up in 3-5 days
== END 2019-02-04 15:08 | disposition home or self-care (01) ==
LOC: ER 10:55
DX: R10.31 Right lower quadrant pain (principal); R10.2 Pelvic and perineal pain; R19.7 Diarrhea, unspecified; Z32.01 Encounter for pregnancy test, result positive; Z91.040 Latex allergy status; Z88.1 Allergy status to other antibiotic agents; Z88.8 Allergy status to other drugs, medicaments and biological substances
CPT/HCPCS: 36415; 76817; 80053; 81001; 84702; 85025; 99284

== ENCOUNTER → 2019-02-06 | Outpatient (CLI) | payer OTHER | LOC: LAB 09:24 | PROVIDERS: ATTEND Nurse Practitioner | DX: R10.9 Unspecified abdominal pain (principal); Z32.01 Encounter for pregnancy test, result positive | CPT/HCPCS: 36415; 84702 ==

== ENCOUNTER 2019-07-08 23:42 | Outpatient (CLI) | payer OTHER ==
[2019-07-09 00:31] LABS: APPEARANCE,URINE CLEAR; BILIRUBIN,URINE NEGATIVE (NEGATIVE); COLOR,URINE YELLOW; GLUCOSE, URINE 50 mg/dL (NEGATIVE); KETONES,URINE NEGATIVE (NEGATIVE); LEUKOCYTE ESTERASE,URINE NEGATIVE (NEGATIVE); NITRITE,URINE NEGATIVE (NEGATIVE); PROTEIN,URINE NEGATIVE (NEGATIVE); URINE SPECIFIC GRAVITY 1.013
[2019-07-09 01:19] LABS: URINE AMPHETAMINES SCREEN NEGATIVE; URINE BARBITURATES SCREEN NEGATIVE; URINE BENZODIAZEPINES SCREEN NEGATIVE; URINE COCAINE SCREEN NEGATIVE; URINE MARIJUANA (THC) SCREEN NEGATIVE; URINE METHADONE SCREEN NEGATIVE; URINE PHENCYCLIDINE SCREEN NEGATIVE
== END 2019-07-09 00:55 | disposition home or self-care (01) ==
LOC: LC 23:42
PROVIDERS: ATTEND Obstetrics & Gynecology
DX: O36.8120 Decreased fetal movements, second trimester, not applicable or unspecified (principal); Z3A.26 26 weeks gestation of pregnancy; Z88.1 Allergy status to other antibiotic agents; Z91.040 Latex allergy status
CPT/HCPCS: 80307; 81001

== ENCOUNTER 2019-09-08 07:05 | Outpatient (CLI) | payer OTHER, MEDICAID ==
[2019-09-08 08:30] LABS: URINE AMPHETAMINES SCREEN NEGATIVE; URINE BARBITURATES SCREEN NEGATIVE; URINE BENZODIAZEPINES SCREEN NEGATIVE; URINE COCAINE SCREEN NEGATIVE; URINE MARIJUANA (THC) SCREEN NEGATIVE; URINE METHADONE SCREEN NEGATIVE; URINE PHENCYCLIDINE SCREEN NEGATIVE
--- NOTE | 2019-09-08 09:16 | RADIOLOGY REPORT (SQ) ---
EXAM DESCRIPTION: U/S ABDOMEN LTD W/DOPPLER IMAGES COMPLETED DATE/TIME: 09/08/2019 9:03 am REASON FOR STUDY: Gallbladder, patient with upper right quadrant pain COMPARISON: None. TECHNIQUE: Dynamic and static grayscale images acquired of the right upper quadrant and recorded on PACS. Additional selected color Doppler and spectral images recorded. LIMITATIONS: Study limited due to acoustical interference from fat or from air in the bowel. FINDINGS: PANCREAS: Visualized pancreas and duct normal. Parts of pancreas poorly seen secondary to acoustical interference from fat or from air in the bowel. LIVER: No masses. Echotexture normal. LIVER VASCULATURE: Normal directional flow of the main portal vein and hepatic veins. GALLBLADDER: Gallstones. Echogenic wall with ring down artifact consistent with adenomyomatosis. ULTRASOUND-DETECTED BERNAL'S SIGN: Positive. INTRAHEPATIC DUCTS AND COMMON DUCT: CBD and intrahepatic ducts normal caliber. No filling defects. INFERIOR VENA CAVA: Normal flow. AORTA: No aneurysm. RIGHT KIDNEY: Normal size. Normal echogenicity. No solid or suspicious masses. No hydronephrosis. No calcifications. PERITONEAL CAVITY AND RIGHT PLEURAL SPACE: No ascites or effusions. OTHER: No other significant finding. IMPRESSION: GALLSTONES. REPORTED POSITIVE SONOGRAPHIC BERNAL SIGN. TECHNICAL DOCUMENTATION: JOB ID: [id number] 2010 [employer]- All Rights Reserved Reading location - IP/workstation name: [email or web address]
--- NOTE | 2019-09-08 09:33 | Non Stress Test Report ---
Non Stress Test Datetime Report Generated by CPN: 09/08/2019 09:33 DEMOGRAPHIC Test Number: 1 EGA NST: 35.1 INDICATION Indication for Study (NST) Other: Provider ordered, Gallstones MONITORING Monitor Explained: Monitor Explained; Test Explained; Patient Verbalized Understanding Time on Monitor: 09/08/2019 07:19 Time off Monitor: 09/08/2019 08:06 NST Duration: 47 NST INTERVENTIONS NST Interventions: PO Hydration Physician Notified NST: Dr. Wellington BABY A: [id number] BABY A Movement : Present Contraction Frequency : none FHR Baseline : 140 Accelerations : 15X15 Decelerations : None Variability : Moderate 6-25bpm NST Review: Meets Criteria for Reactive NST NST Review and Verified By : TMartin,RN NST Results: Reactive NST REPORT Report Trigger: Send Report
== END 2019-09-08 09:22 | disposition home or self-care (01) ==
LOC: LC 07:05
PROVIDERS: ATTEND Obstetrics & Gynecology Gynecology
DX: O99.613 Diseases of the digestive system complicating pregnancy, third trimester (principal); K80.80 Other cholelithiasis without obstruction; Z88.1 Allergy status to other antibiotic agents
CPT/HCPCS: 59025; 76705; 80307; 93976; 94760

== ENCOUNTER 2019-10-08 01:58 | Inpatient (IN) | payer OTHER, MEDICAID ==
[2019-10-03 09:31] LABS: APPEARANCE,URINE SLIGHTLY-CLOUDY; BILIRUBIN,URINE NEGATIVE (NEGATIVE); COLOR,URINE YELLOW; GLUCOSE, URINE 150 mg/dL (NEGATIVE); KETONES,URINE NEGATIVE (NEGATIVE); LEUKOCYTE ESTERASE,URINE NEGATIVE (NEGATIVE); NITRITE,URINE NEGATIVE (NEGATIVE); PROTEIN,URINE NEGATIVE (NEGATIVE); URINE SPECIFIC GRAVITY 1.017; UROBILINOGEN,URINE NEGATIVE mg/dL (<2.0)
[2019-10-03 09:40] LABS: ABSOLUTE EOSINOPHILS # (AUTO) 0.1 10^3/uL (0.0-0.6); ABSOLUTE LYMPHOCYTES (AUTO) 1.8 10^3/uL (0.5-4.7); ABSOLUTE MONOCYTES (AUTO) 0.5 10^3/uL (0.1-1.4); ABSOLUTE NEUT (AUTO) 7.9 10^3/uL (1.7-8.2); BASOPHILS % (AUTO) 0.5 % (0-2); EOSINOPHILS % (AUTO) 0.7 % (0-6); HEMATOCRIT 34.1 % (36.0-47.0); HEMOGLOBIN 11.8 g/dL (12.0-15.5); LYMPHOCYTES % (AUTO) 17.8 % (13-45); MEAN CORPUSCULAR HGB CONC 34.7 g/dL (32.0-36.0); MEAN CORPUSCULAR VOLUME 95 fl (80-97); MONOCYTES % (AUTO) 4.7 % (3-13); PLATELET COUNT 231 10^3/uL (150-450); RED BLOOD COUNT 3.59 10^6/uL (3.72-5.28); RED CELL DISTRIBUTION WIDTH 13.7 % (11.5-14.0); SEGMENTED NEUTROPHILS % (AUTO) 76.3 % (42-78); TOTAL CELLS COUNTED % (AUTO) 100 %; WHITE BLOOD COUNT 10.4 10^3/uL (4.0-10.5)
[2019-10-03 09:41] LABS: ADD MANUAL MICROSCOPIC YES
[2019-10-03 09:44] LABS: BACTERIA,URINE 1+ /HPF; WBC,URINE RARE /HPF
[2019-10-03 09:53] LABS: URINE AMPHETAMINES SCREEN NEGATIVE; URINE BARBITURATES SCREEN NEGATIVE; URINE BENZODIAZEPINES SCREEN NEGATIVE; URINE COCAINE SCREEN NEGATIVE; URINE MARIJUANA (THC) SCREEN NEGATIVE; URINE METHADONE SCREEN NEGATIVE; URINE PHENCYCLIDINE SCREEN NEGATIVE
[2019-10-08] MEDS ORDERED: CEFAZOLIN 2 GM/D5W RTU 2 GM/50 ML RTUPB IV PRN (05:00)
[2019-10-08] MEDS ORDERED: RINGERS SOLUTION,LACTATED 1,000 ML IV ONE (06:30)
[2019-10-08] MEDS ORDERED: ACETAMINOPHEN 1,000 MG/100 ML RTUPB IV ONE (07:26)
[2019-10-08] MEDS ORDERED: MIDAZOLAM 2 MG/2 ML INJ ONE (07:26)
[2019-10-08] MEDS ORDERED: PHENYLEPHRINE HCL INJ/PF 10 MG/1 ML SDV ONE (07:26)
[2019-10-08] MEDS ORDERED: ONDANSETRON HCL INJ/PF 4 MG/2 ML SDV ONE (07:26)
[2019-10-08] MEDS ORDERED: FENTANYL CITRATE INJ/PF 100 MCG/2 ML AMPUL ONE ×2 (07:26→08:28)
[2019-10-08] MEDS ORDERED: OXYTOCIN 10 UNIT/ML VIAL ONE ×2 (07:26→08:17)
[2019-10-08] MEDS ORDERED: KETOROLAC TROMETHAMINE INJ/PF 30 MG/1 ML SDV ONE (07:26)
[2019-10-08] MEDS ORDERED: OXYTOCIN/0.9 % SODIUM CHLORIDE 30 UNIT/500 ML RTUINJ ONE (07:26)
[2019-10-08] MEDS ORDERED: PROPOFOL INJ 200 MG/20 ML VIAL IV ONE (07:28)
[2019-10-08] MEDS ORDERED: LIDOCAINE 2% INJ-PF (20 MG/ML) 2 ML AMPUL ONE (07:28)
[2019-10-08] MEDS ORDERED: SUCCINYLCHOLINE CHLORIDE INJ 200 MG/10 ML VIAL ONE ×2 (07:29→09:12)
[2019-10-08] MEDS ORDERED: DEXAMETHASONE SOD PHOSPHATE INJ 4 MG/1 ML VIAL ONE (07:45)
[2019-10-08] MEDS ORDERED: METHYLERGONOVINE MALEATE INJ/PF 0.2 MG/1 ML AMPULE ONE (08:18)
[2019-10-08] MEDS ORDERED: FENTANYL CITRATE INJ/PF 100 MCG/2 ML AMPUL IV PRN ×3 (08:26)
[2019-10-08] MEDS ORDERED: PROMETHAZINE HCL INJ 25 MG/1 ML VIAL IV PRN ×2 (08:26→09:11)
[2019-10-08] MEDS ORDERED: MORPHINE SULFATE 10 MG/ML INJ IV PRN (08:26)
[2019-10-08] MEDS ORDERED: DIPHENHYDRAMINE HCL 50 MG/ML VIAL IV PRN (08:26)
[2019-10-08] MEDS ORDERED: HYDROMORPHONE HCL INJ/PF 2 MG/ML AMPULE ONE (09:07)
[2019-10-08] MEDS ORDERED: RINGERS SOLUTION,LACTATED 1,000 ML IV PRN (09:11)
[2019-10-08] MEDS ORDERED: ACETAMINOPHEN 325 MG TABLET PO PRN (09:11)
[2019-10-08] MEDS ORDERED: MORPHINE SULFATE 10 MG/ML INJ IM PRN (09:11)
[2019-10-08] MEDS ORDERED: HYDROMORPHONE HCL INJ/PF 2 MG/ML AMPULE IV PRN (09:11)
[2019-10-08] MEDS ORDERED: OXYCODONE-ACETAMINOPHEN 5-325 MG TABLET PO PRN (09:11)
[2019-10-08] MEDS ORDERED: DIPH/PERTUSS(ACELL)/TETANUS VAC/PF 0.5 ML SYR (>=10YO) IM PRN (09:11)
[2019-10-08] MEDS ORDERED: ACETAMINOPHEN 1,000 MG/100 ML RTUPB IV PRN (09:11)
[2019-10-08] MEDS ORDERED: MEASLES,MUMPS&RUBELLA VACC/PF 0.5 ML VIAL SUBCUT PRN (09:11)
[2019-10-08] MEDS ORDERED: OXYTOCIN/0.9 % SODIUM CHLORIDE 30 UNIT/500 ML RTUINJ IV PRN (09:11)
[2019-10-08] MEDS ORDERED: ROPIVACAINE HCL 0.5% INJ/PF (5 MG/1 ML) 30 ML SDV ONE (09:28)
[2019-10-08] MEDS: DOCUSATE SODIUM 100 MG CAPSULE PO SCH ×2 (10:07→17:09)
--- NOTE | 2019-10-08 10:07 | Operative Report ---
Operative Report DATE OF SURGERY: 10/08/19 PREOPERATIVE DIAGNOSIS: Term intrauterine . Prior section x1. Unwanted fertility. History of spina bifida POSTOPERATIVE DIAGNOSIS: Same as above OPERATION: Repeat section and bilateral tubal ligation SURGEON: JENNIFER VALLADARES ANESTHESIA: GA TISSUE REMOVED OR ALTERED: Placenta COMPLICATIONS: None ESTIMATED BLOOD LOSS: 750cc INTRAOPERATIVE FINDINGS: Normal appearing uterus, bilateral fallopian tubes and ovaries. Small amount of scar tissue between rectus muscles and rectus fascia. Amniotic fluid clear, large amount. Viable male infant, pink, grimmacing and attempting to cry at delivery. PROCEDURE: IV fluids: per anesthesia record Urinary output: 80 cc clear yellow urine Findings: Normal-appearing uterus bilateral fallopian tubes and ovaries. Placenta grossly normal. Viable male , large amount of clear amniotic fluid Position: To recovery room in stable condition Description of procedure: The patient was taken to the operating room and general anesthesia was administered and found to be adequate. She was then placed on the OR table in the supine position with a slight leftward tilt. Patient was prepped and draped in usual sterile fashion. Ancef 2 gms was given IV prior to the procedure for infection prophylaxis. Timeout was taken. A Pfannenstiel skin incision was then made approximately 3 cm above the pubic symphysis and carried down to level the rectus fascia. The rectus fascia was then nicked in the midline with a scalpel and the fascial incision was extended laterally with use of curved Dennis scissors. The rectus fascia was then grasped with 2 Kocker clamps elevated and the underlying rectus muscle was dissected off both bluntly and sharply. Small amount of scar tissue noted . Any bleeding controlled with cautery. The rectus muscles were then split in the midline and the peritoneum was entered. The peritoneal incision was then extended by manually stretching the peritoneum. The bladder blade was positioned. The bladder was noted to be out of harm's way. A scalpel was then used in the lower uterine for the hysterotomy, slowly until amniotomy was obtained a large amount of fluid was noted. The uterine incision was then manually stretched. The was noted to be in vertex postion -deep in the pelvis. Using a hand deep in pelvis, the head was elevated and brought to the hysterotomy incision. The head then delivered with minmal difficulty. The shoulders and the rest of the body followed immediately. The cord was cut clamped and the was handed off to the nurse awaiting. was attempting to cry prior to hand off. The placenta was manually delivered. Using a lap gauze the uterus was cleared of all clots and debris. An shyann retractor was placed to facilitate closure of uterus. The uterus was then exteriorized and a bladder blade was repositioned. T he uterine incision was then closed with 0 Chromic suture in a running locked fashion. A second layer of the same suture was used in a running locked imbricated fashion. The uterine incision was inspected and noted to be hemostatic. Retractor was removed. The posterior aspect of the uterus was then inspected and anatomy was seen as above. The right fallopian tube was identified and traced to the fimbriated end. A filshie clip was placed approximately 2 cm from the uterine cornu. Clip surrounded the tube in its entirety. Blanching noted and hemostasis. The left fallopian tube was identified and traced to the fimbriated end. A filshie clip was placed approximately 2 cm from the uterine cornu. Clip surrounded the tube in its entirety. Blanching noted and hemostasis. The uterus was returned to its normal anatomic position within the abdominal cavity. Warm saline irrigation was used to clear all clots and debris from the abdomen. The uterine incision was inspected once more and noted to remain hemostatic. The bladder blade was removed and the peritoneum was closed with 2-0 chromic in a running fashion. The rectus muscles were then reapproximated and the rectus fascia was closed with a #1 PDS in a running fashion. The subcutaneous tissue was then inspected and any bleeding was controlled with Bovie electrocautery. The subcutaneous tissue was then closed with 2-0 Plain Gut suture in a running fashion. The skin was then closed with 4-0 Monocryl in a running subcuticular fashion. The skin incision was then clean dried and Dermabond was applied over the skin incision. All instrument sponge and needle counts were correct x3 for the procedure the patient tolerated the procedure well. She will proceed to recovery room in stable condition
--- NOTE | 2019-10-08 10:09 | PDOC DELIVERY SUMMARY ---
Delivery Summary - Maternal Hx : II Hx # Term Pregnancies: 1 Hx # Pregnancies: 0 Hx Total # of Abortions (Sponateous & Elective): 0 CHRISTINA: 10/12/19 Gestational Age: 39.3 - Delivery Support Person Present: Yes Location: OR : Scheduled Placenta: Within Normal Limits Number of Vessels (Cord): 3 Nuchal Cord: No Estimated Blood Loss: 750cc - Medications Type of Anesthesia:: GA - Delivery Medications Delivery Meds: Methergine 0.2mg IM - into myometrium for atony - Delivery Personnel RN: RANDAL GALVAN MD: JENNIFER VALLADARES
[2019-10-08] MEDS: KETOROLAC TROMETHAMINE INJ/PF 30 MG/1 ML SDV IV SCH ×3 (10:41→22:11)
[2019-10-08] MEDS ORDERED: PROMETHAZINE HCL INJ 25 MG/1 ML VIAL ONE (10:44)
[2019-10-08] MEDS ORDERED: MORPHINE SULFATE 10 MG/ML INJ ONE (10:49)
[2019-10-08] MEDS: OXYCODONE-ACETAMINOPHEN 5-325 MG TABLET PO PRN ×2 (12:20→17:07)
[2019-10-08] MEDS: PRENATAL VITAMIN W DHA CAPSULE PO SCH (14:05)
[2019-10-08] MEDS: ENOXAPARIN SODIUM INJ 30 MG/0.3 ML DISP.SYRIN SUBCUT SCH (14:07)
--- NOTE | 2019-10-08 14:37 | Delivery Summary ---
Del Sum A-C Datetime Report Generated by CPN: 10/08/2019 14:37 DELIVERY PERSONNEL DELIVERY PERSONNEL: [id number] Delivery Doctor:: Heather Corea MD Anesthesiologist:: Dr. Guillory [employer]LEGE [employer] MEMBER:: Linda Lozada CRNA Labor and Delivery Nurse:: Jori Marks RN Patient Support Assistant:: Jori Marks RN Neonatal Nurse Practitioner:: ARMYA Rose Nursery Nurse:: Verenice House RN Lang Path Therapist/ADJUSTER ARBITRATOR: Kaylynn Padilla CST Lang Path Therapist/ADJUSTER ARBITRATOR: Veronica Gallagher CST Additional Personnel: : BillyJustina MATERNAL INFORMATION Delivery Anesthesia: General Medications After Delivery: Pitocin 30 Units in 500ml NS/D5W; Pitocin Drip 20 Units/1000ml NSS Delivery QBL: 1278 Maternal Complications: None LABOR SUMMARY EDC: 10/12/2019 00:00 No. Babies in Womb: 1 Attempted: No Labor Anesthesia: None LABOR INFORMATION Reason for Induction: Not Applicable Oxytocin: N/A Group B Beta Strep: Positive Antibiotics # of Doses: 1 Antibiotics Time of Last Dose: 10/08/2019 08:00 Name of Antibiotic Given: Ancef Steroids Given: None Reason Steroids Not Administered: Not Applicable MEMBRANES Membranes Rupture Method: Artificial Rupture of Membranes: 10/08/2019 08:13 Length of Rupture (hr): 0.02 Amniotic Fluid Color: Clear Amniotic Fluid Amount: Small Amniotic Fluid Odor: Normal STAGES OF LABOR Stage 3 hr: 0 Stage 3 min: 1 VAGINAL DELIVERY Episiotomy: None Laceration #1: None Laceration Extension #1: N/A Sponge Count Correct: N/A Sharps Count Correct: N/A CSECTION DELIVERY Primary Indication: Repeat Elective CSection Urgency: Scheduled CSection Incidence: Repeat Labor: N/A Elective: N/A CSection Incision: Lower Uterine Transverse (Annotations: Data stored by [facility] on behalf of user) Other Sterilization Procedure: Filshie clip BABY A INFORMATION Infant Delivery Date/Time: 10/08/2019 08:14 Method of Delivery: Vaginal Nurse Controlled Delivery: No Born in Route : No : N/A Forceps: N/A Vacuum Extraction: N/A Shoulder Dystocia : No PRESENTATION/POSITION BABY A Presentation: Cephalic Cephalic Presentation: Vertex Breech Presentation: N/A PLACENTA INFORMATION BABY A Placenta Delivery Time : 10/08/2019 08:15 Placenta Method of Delivery: Manual Removal Placenta Status: Delivered SCORES BABY A Heart Rate 1 min: >100 bpm Resp Effort 1 min: Good Cry Reflex Irritability 1 min: Cough or Sneeze or Pulls Away Muscle Tone 1 min: Some Flexion of Extremities Color 1 min: Blue/Pale Resuscitation Effort 1 min: Tactile Stimulation; Oxygen SCORE 1 MIN: 7 Heart Rate 5 min: >100 bpm Resp Effort 5 min: Good Cry Reflex Irritability 5 min: Cough or Sneeze or Pulls Away Muscle Tone 5 min: Active Motion Color 5 min: Body [place], Extremities Blue Resuscitation Effort 5 min: Tactile Stimulation SCORE 5 MIN: 9 INFANT INFORMATION BABY A Gestational Age at Delivery: 39.3 Gestational Status: Full Term- 39- 40.6 Weeks Outcome : Liveborn Condition : Stable Sex: Male IDENTIFICATION BABY A Verification Date/Time: 10/08/2019 08:07 ID Band Number: [id number] Mother's Name Verified: Yes RN Verifying : TMartin,RN Additional Verifying Personnel: Matilda,RN WEIGHT/LENGTH BABY A Infant Birthweight (gm): 3300 Infant Weight (lb): 7 Weight (oz): 4 Length (in): 19.25 Infant Length (cm): 48.90 CORD INFORMATION BABY A No. Cord Vessels: 3 Nuchal Cord : N/A Cord Blood Taken: Yes-For Eval (Mom's Blood Type - or O+) Infant Suction: Mouth ASSESSMENT BABY A Skin to Skin: No BABY B INFORMATION : N/A
--- NOTE | 2019-10-08 14:37 | Birth Certificate Data ---
Cert Data Datetime Report Generated by CPN: 10/08/2019 14:37 CERTIFICATE DATA 47a. Care: Yes (07/08/2019 23:55:Kate Liu RN) RISK FACTORS IN THIS 49a. Diabetes: No (07/08/2019 23:55:Kate Liu RN) 49b. Hypertension: No (07/08/2019 23:55:Kate Liu RN) 49d. Stillborns: No (07/08/2019 23:55:Kate Liu RN) 49d. IUGR: No (07/08/2019 23:55:Kate Liu RN) 49e. Infertility Treatment: No (07/08/2019 23:55:Kate Liu RN) 49f. Previous Cesareans: 1 (07/08/2019 23:55:Tracie Nazario RN) Mother's Height 50b. Height Inches: 63 (10/08/2019 05:40:QS system process) Mother's Weight 51a. Pre- Weight (lbs): 181 (07/08/2019 23:55:Kate Liu RN) 51b. Weight at Delivery (lbs): 191 (09/23/2019 11:26:QS system process) Infections Present/Treated 53a. Gonorrhea: No (07/08/2019 23:55:Kate Liu RN) 53b. Syphilis: No (07/08/2019 23:55:Kate Liu RN) 53c. Chlamydia: No (07/08/2019 23:55:Kate Liu RN) 53d. Hepatitis B: No (07/08/2019 23:55:Kate Liu RN) Obstetric Procedures 54a, b, c. Obstetric Procedures: Ultrasound; NST (07/08/2019 23:55:Kate Liu RN) Onset of Labor 56a. PROM >12 Hrs: 0.02 (07/08/2019 23:55:QS system process) 57a. Induction of Labor: N/A (07/08/2019 23:55:Jori Marks RN) 57c. Non-Vertex Presentation A: Vertex (07/08/2019 23:55:Jori Marks RN) 57d. Steroids - Lung Mat: None (07/08/2019 23:55:Jori Marks RN) 57d. Steroids - Lung Mat: Not Applicable (07/08/2019 23:55:Jori Marks RN) 57e. Antibiotics During Labor: 10/08/2019 08:00 (07/08/2019 23:55:Jori Marks RN) 57g. Moderate/Heavy Meconium: Clear (07/08/2019 23:55:Jori Marks RN) 57h. Intolerance of Labor: Repeat Elective (07/08/2019 23:55:Jori Marks RN) 57i. Epidural/Spinal Anesthesia: None (07/08/2019 23:55:Jori Marks RN) Method of Delivery 58a. Forceps - Unsuccessful A: N/A (07/08/2019 23:55:Jori Marks RN) 58b. Vacuum - Unsuccessful A: N/A (07/08/2019 23:55:Jori Marks RN) 58c. Presentation at 58c. Presentation at - A : Vertex (07/08/2019 23:55:Jori Marks RN) 58c. Presentation at - A : N/A (07/08/2019 23:55:Jori Marks RN) 58c. Presentation at - A : Cephalic (07/08/2019 23:55:Jori Marks RN) Final Route and Method of Del 58d. Baby A Route/Delivery: Vaginal (07/08/2019 23:55:Jori Marks RN) 58e. Trial of Labor Attempted: No (07/08/2019 23:55:Jori Marks RN) 58e. Trial of Labor Attempted A: N/A (07/08/2019 23:55:Jori Marks RN) 58e. Trial of Labor Attempted B: N/A (07/08/2019 23:55:Jori Marks RN) Maternal Morbidity 59b. 3rd or 4th Degree Lacs: None (07/08/2019 23:55:Jori Marks, RN) Birthweight Baby A: 3300 (07/08/2019 23:55:Jori Marks RN) 60a. Pounds : 7 (07/08/2019 23:55:QS system process) 60b. Ounces: 4 (07/08/2019 23:55:QS system process) 61. GA at Delivery Baby A: 39.3 (07/08/2019 23:55:Jori Marks RN) : Full Term- 39- 40.6 Weeks (07/08/2019 23:55:QS system process) 62a. 5 Minute Baby A: 9 (07/08/2019 23:55:QS system process)
[2019-10-09] MEDS ORDERED: LIDOCAINE 0.5% INJ-PF (5 MG/ML) 50 ML SDV SUBCUT PRN (05:00)
[2019-10-09] MEDS ORDERED: LACTATED RINGERS 1000 ML IV PRN (05:00)
[2019-10-09] MEDS: PANTOPRAZOLE SODIUM 40 MG TABLET.DR PO SCH (05:39)
[2019-10-09] MEDS: OXYCODONE-ACETAMINOPHEN 5-325 MG TABLET PO PRN ×2 (05:41→11:10)
[2019-10-09 09:00] LABS: HEMATOCRIT 17.5 % (36.0-47.0); MEAN CORPUSCULAR HEMOGLOBIN 32.4 pg (27.0-33.4); MEAN CORPUSCULAR HGB CONC 33.6 g/dL (32.0-36.0); MEAN CORPUSCULAR VOLUME 96 fl (80-97); PLATELET COUNT 202 10^3/uL (150-450); RED BLOOD COUNT 1.82 10^6/uL (3.72-5.28); RED CELL DISTRIBUTION WIDTH 13.9 % (11.5-14.0); WHITE BLOOD COUNT 13.8 10^3/uL (4.0-10.5)
[2019-10-09 09:02] LABS: HEMOGLOBIN 5.9 g/dL (12.0-15.5)
[2019-10-09] MEDS ORDERED: NORMAL SALINE 250 ML IV PRN ×2 (09:17)
[2019-10-09] MEDS: DOCUSATE SODIUM 100 MG CAPSULE PO SCH ×2 (09:28→17:36)
[2019-10-09] MEDS: PRENATAL VITAMIN W DHA CAPSULE PO SCH (09:30)
[2019-10-09] MEDS: ENOXAPARIN SODIUM INJ 30 MG/0.3 ML DISP.SYRIN SUBCUT SCH (09:30)
--- NOTE | 2019-10-09 11:25 | PDOC PROGRESS REPORT ---
Subjective-OB Progress Note for:: 10/09/19 Subjective: 29yo G2 now P2 s/p repeat ppd 1. Pt ambulating and voiding without difficulty, reports pain well controlled by medication. Reports feeling lightheaded on standing today and has had a headache all morning agreeable to blood transfusion wants to take shower first, to keep her company Physical Exam (OB) Vital Signs: Temp Pulse Resp BP Pulse Ox 98.1 F 115 H 16 110/61 96 10/09/19 11:07 10/09/19 11:07 10/09/19 10:52 10/09/19 11:07 10/09/19 07:50 Intake & Output 10/08/19 10/09/19 10/10/19 06:59 06:59 06:59 Intake Total 1000 1020 0 Output Total 475 Balance 1000 545 0 Weight 87 kg - General General Appearance: Appears well In distress: None - PIH/Pre-Eclampsia DTR's: 1 + Clonus: Negative Headache: Present Epigastric Pain: No Visual Changes: No - Dressing Removed: Yes Incision: Well Approximated Closure Type: Surgical Glue - Maternal Morbidity 59. Maternal Morbidity (serious complications experinced by the mother associated with labor and delivery: Maternal transfusion - Lochia Lochia Amount: Scant < 10 ml Lochia Color: Rubra/Red - Abdomen Description: Soft Hernia Present: No Fundal Description: Firm, Midline Fundal Height: u/u - u/2 - Respiratory Respiratory Status: No respiratory distress - Extremities Upper extremity: Normal inspection Lower extremities: Normal inspection - Neurological Cognition: Normal Orientation: AAOx4 - Psychological Associated symptoms: Normal affect, Normal mood Objective-Diagnostic Laboratory: 10/09/19 08:43 10/07/19 10/09/19 13:03 08:43 WBC 13.8 H RBC 1.82 L Hgb 5.9 L Hct 17.5 L MCV 96 MCH 32.4 MCHC 33.6 RDW 13.9 Plt Count 202 Blood Type A POSITIVE Antibody Screen NEGATIVE Assessment and Plan(PN) - Assessment and Plan (1) S/P repeat low transverse Is this a current diagnosis for this admission?: Yes Plan: routine pp care (2) Encounter for tubal ligation Is this a current diagnosis for this admission?: Yes Plan: routine pp care (3) Acute blood loss anemia Is this a current diagnosis for this admission?: Yes Plan: n increase dietary iron and FeSO4 bid, agreeable to transfusion, first unit infusing at this time (4) Blood transfusion during current hospitalization Is this a current diagnosis for this admission?: Yes Plan: first unit infusing right now, continue to monitor - Time Spent with Patient Time with patient: 15-25 minutes Medications reviewed and adjusted accordingly: Yes - Disposition Anticipated Discharge Disposition: Home, Self Care Anticipated Discharge Timeframe: within 24 hours
[2019-10-09] MEDS: IBUPROFEN 800 MG TABLET PO SCH ×3 (14:10→23:30)
[2019-10-09] MEDS: SIMETHICONE 80 MG TAB.CHEW PO PRN (17:36)
[2019-10-09 18:38] LABS: ABSOLUTE BASOPHILS # (AUTO) 0.1 10^3/uL (0.0-0.2); ABSOLUTE EOSINOPHILS # (AUTO) 0.1 10^3/uL (0.0-0.6); ABSOLUTE LYMPHOCYTES (AUTO) 2.5 10^3/uL (0.5-4.7); ABSOLUTE MONOCYTES (AUTO) 1.1 10^3/uL (0.1-1.4); ABSOLUTE NEUT (AUTO) 9.7 10^3/uL (1.7-8.2); BASOPHILS % (AUTO) 0.4 % (0-2); EOSINOPHILS % (AUTO) 0.4 % (0-6); HEMATOCRIT 24.3 % (36.0-47.0); LYMPHOCYTES % (AUTO) 18.5 % (13-45); MEAN CORPUSCULAR HEMOGLOBIN 31.9 pg (27.0-33.4); MEAN CORPUSCULAR HGB CONC 34.4 g/dL (32.0-36.0); MEAN CORPUSCULAR VOLUME 93 fl (80-97); MONOCYTES % (AUTO) 8.4 % (3-13); PLATELET COUNT 185 10^3/uL (150-450); RED BLOOD COUNT 2.63 10^6/uL (3.72-5.28); SEGMENTED NEUTROPHILS % (AUTO) 72.3 % (42-78); TOTAL CELLS COUNTED % (AUTO) 100 %; WHITE BLOOD COUNT 13.4 10^3/uL (4.0-10.5)
[2019-10-09 18:39] LABS: HEMOGLOBIN 8.4 g/dL (12.0-15.5)
[2019-10-09] MEDS ORDERED: ONDANSETRON 4 MG TAB.RAPDIS SL PRN (20:28)
[2019-10-10] MEDS: PANTOPRAZOLE SODIUM 40 MG TABLET.DR PO SCH (05:05)
[2019-10-10] MEDS: IBUPROFEN 800 MG TABLET PO SCH ×3 (05:05→16:20)
--- NOTE | 2019-10-10 09:28 | PDOC PROGRESS REPORT ---
Subjective-OB Progress Note for:: 10/10/19 Subjective: Complaining she is not passing rectal gas-only had flatus one time since delivery. Physical Exam (OB) Vital Signs: Temp Pulse Resp BP Pulse Ox 98.2 F 119 H 15 128/73 H 99 10/10/19 09:04 10/10/19 07:45 10/10/19 07:45 10/10/19 09:02 10/10/19 07:45 Intake & Output 10/09/19 10/10/19 10/11/19 06:59 06:59 06:59 Intake Total 1020 2880 Output Total 475 Balance 545 2880 - PIH/Pre-Eclampsia DTR's: 1 + Clonus: Negative Headache: Absent Epigastric Pain: No Visual Changes: No - Dressing Removed: Yes Incision: Well Approximated Closure Type: Surgical Glue - Maternal Morbidity 59. Maternal Morbidity (serious complications experinced by the mother associated with labor and delivery: Maternal transfusion, None of the above - Lochia Lochia Amount: Scant < 10 ml Lochia Color: Rubra/Red - Abdomen Description: Tender, Soft, Round, Distended Hernia Present: No Bowel Sounds: Normoactive Flatus Presence: Present Stool: No Fundal Description: Firm, Midline Fundal Height: u/u - u/2 Objective-Diagnostic Laboratory: 10/09/19 18:18 10/07/19 10/09/19 13:03 18:18 WBC 13.4 H RBC 2.63 L Hgb 8.4 L D Hct 24.3 L MCV 93 MCH 31.9 MCHC 34.4 RDW 14.0 Plt Count 185 Seg Neutrophils % 72.3 Blood Type A POSITIVE Antibody Screen NEGATIVE Assessment and Plan(PN) - Time Spent with Patient Time with patient: 15-25 minutes Medications reviewed and adjusted accordingly: Yes - Disposition Anticipated Discharge Disposition: Home, Self Care Anticipated Discharge Timeframe: within 36 hours
[2019-10-10] MEDS: DOCUSATE SODIUM 100 MG CAPSULE PO SCH ×2 (10:20→18:12)
[2019-10-10] MEDS: PRENATAL VITAMIN W DHA CAPSULE PO SCH (10:20)
[2019-10-10] MEDS: SIMETHICONE 80 MG TAB.CHEW PO PRN ×2 (10:22→14:01)
[2019-10-10 11:27] LABS: HEMATOCRIT 25.2 % (36.0-47.0); HEMOGLOBIN 8.6 g/dL (12.0-15.5); MEAN CORPUSCULAR HEMOGLOBIN 31.9 pg (27.0-33.4); MEAN CORPUSCULAR HGB CONC 34.2 g/dL (32.0-36.0); MEAN CORPUSCULAR VOLUME 93 fl (80-97); PLATELET COUNT 230 10^3/uL (150-450); RED CELL DISTRIBUTION WIDTH 14.5 % (11.5-14.0); WHITE BLOOD COUNT 18.8 10^3/uL (4.0-10.5)
[2019-10-10] MEDS: ENOXAPARIN SODIUM INJ 30 MG/0.3 ML DISP.SYRIN SUBCUT SCH (12:28)
[2019-10-10] MEDS: OXYCODONE-ACETAMINOPHEN 5-325 MG TABLET PO PRN (14:01)
[2019-10-10 14:51] VITALS: BP 123/69
--- NOTE | 2019-10-10 15:53 | PDOC DISCHARGE SUMMARY ---
Impression - Admit/DC Date/PCP Admission Date/Primary Care Provider: 10/08/19 04:59 SOL [facility] Discharge Date: 10/10/19 - Discharge Diagnosis (1) Acute blood loss anemia Is this a current diagnosis for this admission?: Yes (2) Blood transfusion during current hospitalization Is this a current diagnosis for this admission?: Yes (3) Encounter for tubal ligation Is this a current diagnosis for this admission?: Yes (4) S/P repeat low transverse Is this a current diagnosis for this admission?: Yes - Additional Information Resuscitation Status: Full Code Discharge Diet: Regular Discharge Activity: Activity As Tolerated, Balance Activity w/Rest, No Lifting Over 10 Pounds, No Lifting/Push/Pulling, Pelvic Rest, Slowly Increase Activity, No tub bath Referrals: PEPPER HERNÁNDEZ PA [Primary Care Provider] - JENNIFER VALLADARES MD [ACTIVE PROVISIONAL STAFF] - Prescriptions: Oxycodone HCl/Acetaminophen [Percocet 5-325 mg Tablet] 1 tab PO Q4HP PRN #20 tablet PRN Reason: Docusate Sodium [Colace 100 mg Capsule] 100 mg PO BID #30 capsule Ibuprofen [Motrin 800 mg Tablet] 800 mg PO Q8 #30 tablet Home Medications: Vit,Calc76/Iron/Folic [Prenatabs Rx Tablet] 1 tab PO DAILY 07/08/19 Esomeprazole Magnesium [Nexium] 20 mg PO DAILY 09/08/19 Docusate Sodium [Colace 100 mg Capsule] 100 mg PO BID #30 capsule 10/10/19 Ibuprofen [Motrin 800 mg Tablet] 800 mg PO Q8 #30 tablet 10/10/19 Oxycodone HCl/Acetaminophen [Percocet 5-325 mg Tablet] 1 tab PO Q4HP PRN #20 tablet 10/10/19 HPI Gestational Age: 39.3 wks Reason(s) for Admission: Ceasarean Section-Repeat Procedures: Ultrasound Intrapartum Procedure(s): : Low Cervical, Transverse Hospital Course 59. Maternal Morbidity (serious complications experinced by the mother associated with labor and delivery: Maternal transfusion, None of the above Results Laboratory Results: WBC 18.8 10^3/uL (4.0-10.5) H 10/10/19 09:51 RBC 2.70 10^6/uL (3.72-5.28) L 10/10/19 09:51 Hgb 8.6 g/dL (12.0-15.5) L 10/10/19 09:51 Hct 25.2 % (36.0-47.0) L 10/10/19 09:51 MCV 93 fl (80-97) 10/10/19 09:51 MCH 31.9 pg (27.0-33.4) 10/10/19 09:51 MCHC 34.2 g/dL (32.0-36.0) 10/10/19 09:51 RDW 14.5 % (11.5-14.0) H 10/10/19 09:51 Plt Count 230 10^3/uL (150-450) 10/10/19 09:51 Lymph % (Auto) 18.5 % (13-45) 10/09/19 18:18 [place] % (Auto) 8.4 % (3-13) 10/09/19 18:18 Eos % (Auto) 0.4 % (0-6) 10/09/19 18:18 Baso % (Auto) 0.4 % (0-2) 10/09/19 18:18 Absolute Neuts (auto) 9.7 10^3/uL (1.7-8.2) H 10/09/19 18:18 Absolute Lymphs (auto) 2.5 10^3/uL (0.5-4.7) 10/09/19 18:18 Absolute Monos (auto) 1.1 10^3/uL (0.1-1.4) 10/09/19 18:18 Absolute Eos (auto) 0.1 10^3/uL (0.0-0.6) 10/09/19 18:18 Absolute Basos (auto) 0.1 10^3/uL (0.0-0.2) 10/09/19 18:18 Seg Neutrophils % 72.3 % (42-78) 10/09/19 18:18 POC Glucose 89 mg/dL (70-110) 10/10/19 12:18 Urine Color YELLOW 10/03/19 08:15 Urine Appearance SLIGHTLY-CLOUDY 10/03/19 08:15 Urine pH 5.0 (5.0-9.0) 10/03/19 08:15 Ur Specific [place] 1.017 08/27/20 08:15 Urine Protein NEGATIVE mg/dL (NEGATIVE) 10/03/19 08:15 Urine Glucose (UA) 150 mg/dL (NEGATIVE) H 10/03/19 08:15 Urine Ketones NEGATIVE mg/dL (NEGATIVE) 10/03/19 08:15 Urine Blood NEGATIVE (NEGATIVE) 10/03/19 08:15 Urine Nitrite NEGATIVE (NEGATIVE) 10/03/19 08:15 Urine Bilirubin NEGATIVE (NEGATIVE) 10/03/19 08:15 Urine Urobilinogen NEGATIVE mg/dL (<2.0) 10/03/19 08:15 Ur Leukocyte Esterase NEGATIVE (NEGATIVE) 10/03/19 08:15 Urine WBC RARE /HPF 10/03/19 08:15 Ur Squamous Epith Cells MODERATE /HPF 10/03/19 08:15 Urine Bacteria 1+ /HPF 10/03/19 08:15 Urine Mucus 2+ 10/03/19 08:15 Urine Ascorbic Acid NEGATIVE (NEGATIVE) 10/03/19 08:15 Urine Opiates Screen NEGATIVE 10/03/19 08:15 Urine Methadone Screen NEGATIVE 10/03/19 08:15 Ur Barbiturates Screen NEGATIVE 10/03/19 08:15 Ur Phencyclidine Scrn NEGATIVE 10/03/19 08:15 Ur Amphetamines Screen NEGATIVE 10/03/19 08:15 U Benzodiazepines Scrn NEGATIVE 10/03/19 08:15 Urine Cocaine Screen NEGATIVE 10/03/19 08:15 U Marijuana (THC) Screen NEGATIVE 10/03/19 08:15 COVID-19 Source NASOPHARYNGEAL 10/03/19 08:09 COVID-19 (JAD) NOT DETECTED 10/03/19 08:09 Blood Type A POSITIVE 10/07/19 13:03 Antibody Screen NEGATIVE 10/07/19 13:03 Crossmatch See Detail 10/07/19 13:03 Plan Plan of Treatment: Follow up at [facility] in 1 wk or prn. Time Spent: Greater than 30 Minutes
== END 2019-10-10 16:41 | disposition home or self-care (01) | DRG 783 ==
LOC: 2S 04:59
PROVIDERS: ADMIT Obstetrics & Gynecology; ATTEND Obstetrics & Gynecology
PROC: 10D00Z1 Extraction of Products of Conception, Low, Open Approach (ICD-10-PCS; principal; 2019-10-08)
PROC: 0UL70CZ Occlusion of Bilateral Fallopian Tubes with Extraluminal Device, Open Approach (ICD-10-PCS; 2019-10-08)
PROC: 30233P1 Transfusion of Nonautologous Frozen Red Cells into Peripheral Vein, Percutaneous Approach (ICD-10-PCS; 2019-10-09)
DX: O34.211 Maternal care for low transverse scar from previous cesarean delivery (principal); O24.12 Pre-existing type 2 diabetes mellitus, in childbirth; D62 Acute posthemorrhagic anemia; E11.9 Type 2 diabetes mellitus without complications; O99.02 Anemia complicating childbirth; O99.89 Other specified diseases and conditions complicating pregnancy, childbirth and the puerperium; O99.353 Diseases of the nervous system complicating pregnancy, third trimester; Q05.9 Spina bifida, unspecified; O99.824 Streptococcus B carrier state complicating childbirth; Z30.2 Encounter for sterilization; O99.214 Obesity complicating childbirth; E66.01 Morbid (severe) obesity due to excess calories; Z37.0 Single live birth; Z87.891 Personal history of nicotine dependence; Z11.59 Encounter for screening for other viral diseases
CPT/HCPCS: 1961; 36415; 36430; 59025; 64486; 76942; 80307; 81001; 82962; 85025; 85027; 86850; 86900; 86901; 86920; 87635; 94760; 94799; C9803; J0131; J0330; J0690; J1100; J1170; J1650; J1885; J2210; J2250; J2270; J2370; J2405; J2550; J2590; J2704; J2795; J3010; J3490; J7120; P9016; S0119

== ENCOUNTER 2019-10-17 21:03 | Inpatient (IN) | payer OTHER, MEDICAID ==
--- NOTE | 2019-10-17 22:55 | PDOC CONSULTATION ---
Consultation Consult Date: 10/17/19 Provider Consulted: SURGICAL SURGICALIST Consult reason:: abdominal wall discoloration and abdominal pain History of Present Illness Admission Date/PCP: 10/17/19 21:03 JENNIFER COREA MD Patient complains of: Abdominal pain, swelling, and discoloration History of Present Illness: JANETTE ROMERO is a 29 year old female who is postop day 9 from a section. The patient went home, and reports increasing amounts of pain and red/purple discoloration of the abdominal wall. The patient was sent for lab work as well as a CT scan of the abdomen and pelvis. She has what appears to be a large hematoma of the rectus sheath, in the area of the . The patient reports pain with movement. Laying still makes it better. The pain is sharp and stabbing. She rates it a 5 out of 10. The discoloration of her abdominal wall started 2 days ago and has progressed. She denies chest pain, shortness of breath, nausea, vomiting, hematochezia, hematemesis, headache, blurry vision. She does report subjective fevers and chills at home. Past Medical History Cardiac Medical History: Denies: Coronary Artery Disease, Myocardial Infarction, Hypertension, Pulmonary Embolism Pulmonary Medical History: Reports: Asthma - "asthma symptoms", Bronchitis Denies: Chronic Obstructive Pulmonary Disease (COPD), Pneumonia, Sleep Apnea, Tuberculosis Neurological Medical History: Denies: Seizures Endocrine Medical History: Denies: Hyperthyroidism, Hypothyroidism Malignancy Medical History: Denies: Breast Cancer, Cervical Cancer, Ovarian Cancer GI Medical History: Reports: Gastroesophageal Reflux Disease - during Denies: Hiatal Hernia Musculoskeltal Medical History: Denies: Arthritis, Fibromyalgia Psychiatric Medical History: Reports: Depression - ANXIETY/DEPRESSION Denies: Bipolar Disorder, Post Traumatic Stress Disorder Hematology: Reports: Anemia - during Denies: Hemophilia, Sickle Cell Disease Infectious Medical History: Denies: HIV Past Surgical History Past Surgical History: Reports: Section, Orthopedic Surgery - Finger surgery yesterday, tendon reattachment ring finger left hand Social History Smoking Status: Former Smoker Family History Family History: Reviewed & Not Pertinent Parental Family History Reviewed: Yes Children Family History Reviewed: Yes Sibling(s) Family History Reviewed.: Yes Medication/Allergy Home Medications: Vit,Calc76/Iron/Folic [Prenatabs Rx Tablet] 1 tab PO DAILY 07/08/19 Esomeprazole Magnesium [Nexium] 20 mg PO DAILY 09/08/19 Docusate Sodium [Colace 100 mg Capsule] 100 mg PO BID #30 capsule 10/10/19 Cephalexin Monohydrate [Keflex 500 mg Capsule] 500 mg PO Q12 10/17/19 Furosemide [Lasix 20 mg Tablet] 10 mg PO [id number] 10/17/19 Ibuprofen [Motrin 800 mg Tablet] 800 mg PO Q8HP PRN 10/17/19 Allergies/Adverse Reactions: iodine Allergy (Verified 10/03/19 08:53) latex Allergy (Verified 10/03/19 08:53) Itching vancomycin Allergy (Verified 10/03/19 08:53) "red itchy scalp" bandaids Allergy (Uncoded 10/03/19 08:53) itching, redness CONTRAST DYE Adverse Reaction (Uncoded 10/03/19 08:54) Review of Systems Constitutional: PRESENT: chills, fatigue, fever(s). ABSENT: anorexia, headache(s) Eyes: ABSENT: visual disturbances Ears: ABSENT: hearing changes Nose, Mouth, and Throat: ABSENT: sore throat Cardiovascular: ABSENT: chest pain Respiratory: ABSENT: cough, dyspnea Gastrointestinal: PRESENT: abdominal pain, bloating. ABSENT: hematemesis, hematochezia, melena, nausea, vomiting Musculoskeletal: ABSENT: back pain Integumentary: PRESENT: rash, other - Red/purple discoloration of the abdominal wall, in the area of the . Neurological: ABSENT: confusion, convulsions, dizziness Psychiatric: ABSENT: anxiety, depression Endocrine: ABSENT: cold intolerance, heat intolerance Hematologic/Lymphatic: ABSENT: easy bleeding, easy bruising Physical Exam Vital Signs: Temp Pulse Resp BP Pulse Ox 99.2 F 95 16 140/84 H 100 10/17/19 21:19 10/17/19 21:19 10/17/19 21:19 10/17/19 21:10/17/19 21: General appearance: PRESENT: no acute distress, cooperative. ABSENT: disheveled Head exam: PRESENT: atraumatic, normocephalic Eye exam: PRESENT: EOMI, PERRLA. ABSENT: scleral icterus Mouth exam: PRESENT: moist, neck supple Neck exam: ABSENT: meningismus, tenderness, thyromegaly, tracheal deviation Respiratory exam: PRESENT: unlabored. ABSENT: tachypnea, wheezes Cardiovascular exam: ABSENT: tachycardia Pulses: PRESENT: normal radial pulses GI/Abdominal exam: PRESENT: mass - Lower abdominal wall fullness, soft, tenderness. ABSENT: distended, rebound, rigid Rectal exam: PRESENT: deferred Extremities exam: ABSENT: clubbing Musculoskeletal exam: ABSENT: deformity Neurological exam: PRESENT: alert, awake, oriented to person, oriented to place, oriented to time, oriented to situation, CN II-XII grossly intact Psychiatric exam: ABSENT: agitated, anxious Focused psych exam: ABSENT: delusional Skin exam: PRESENT: erythema - Abdominal wall. ABSENT: cyanosis Assessment & Plan - Diagnosis (1) Rectus sheath hematoma Qualifiers: Encounter type: initial encounter Qualified Code(s): S30.1XXA - Contusion of abdominal wall, initial encounter Is this a current diagnosis for this admission?: Yes - Plan Summary Plan Summary: This is a 29-year-old female who is 9 days status post section. She presents with discoloration of the abdominal wall and severe lower abdominal pain. Her CT scan shows a large rectus sheath hematoma that I have measured at greater than 15 cm wide. It appears to be in the area of the . I do not see overt evidence of active infection, although it is difficult to rule out with this CT scan. Her white blood cell count and differential are essentially normal. The patient does have a large abdominal wall hematoma, and is experiencing significant symptoms because of it. Operative evacuation of the hematoma may be helpful for pain control, as well as expedited healing. I have discussed this with both the patient and Dr. Corea. The patient would like to discuss things further with her mother and also with Dr. Corea before making any decisions. The surgicalist will be available, if needed for operative intervention. We will continue to follow the patient closely with you.
[2019-10-17] MEDS ORDERED: IBUPROFEN 800 MG TABLET PO PRN (23:34)
[2019-10-17] MEDS ORDERED: CEFAZOLIN 2 GM/D5W RTU 2 GM/50 ML RTUPB IV ONE (23:45)
[2019-10-18] MEDS: NORMAL SALINE 1000 ML 1,000 ML IV PRN ×2 (00:32→10:42)
[2019-10-18] MEDS ORDERED: CEFAZOLIN 2 GM/D5W RTU 2 GM/50 ML RTUPB IV ONE (00:47)
[2019-10-18] MEDS ORDERED: CEFAZOLIN 2 GM/D5W RTU 2 GM/50 ML RTUPB IV SCH (06:00)
[2019-10-18 08:53] LABS: ABSOLUTE BASOPHILS # (AUTO) 0.1 10^3/uL (0.0-0.2); ABSOLUTE EOSINOPHILS # (AUTO) 0.2 10^3/uL (0.0-0.6); ABSOLUTE LYMPHOCYTES (AUTO) 1.9 10^3/uL (0.5-4.7); ABSOLUTE MONOCYTES (AUTO) 0.6 10^3/uL (0.1-1.4); ABSOLUTE NEUT (AUTO) 6.3 10^3/uL (1.7-8.2); BASOPHILS % (AUTO) 0.6 % (0-2); EOSINOPHILS % (AUTO) 2.1 % (0-6); HEMATOCRIT 28.7 % (36.0-47.0); HEMOGLOBIN 9.9 g/dL (12.0-15.5); LYMPHOCYTES % (AUTO) 21.2 % (13-45); MEAN CORPUSCULAR HEMOGLOBIN 32.7 pg (27.0-33.4); MEAN CORPUSCULAR HGB CONC 34.5 g/dL (32.0-36.0); MEAN CORPUSCULAR VOLUME 95 fl (80-97); MONOCYTES % (AUTO) 6.4 % (3-13); PLATELET COUNT 533 10^3/uL (150-450); RED BLOOD COUNT 3.02 10^6/uL (3.72-5.28); RED CELL DISTRIBUTION WIDTH 14.3 % (11.5-14.0); SEGMENTED NEUTROPHILS % (AUTO) 69.7 % (42-78); TOTAL CELLS COUNTED % (AUTO) 100 %; WHITE BLOOD COUNT 9.1 10^3/uL (4.0-10.5)
--- NOTE | 2019-10-18 08:54 | PDOC H&P ---
History of Present Illness Admission Date/PCP: 10/17/19 21:03 JENNIFER VALLADARES MD Patient complains of: Abdominal pain and bruising of anterior abdominal History of Present Illness: JANETTE ROMERO is a 29 year old female s/p Repeat and bilateral tubal ligation on 10/09/2019 who presented to the office with worsening abdominal pain and discoloration of the anterior abdominal wall. She denies fever, chills, nausea or vomiting. Reports no bowel or bladder complaints. She states increasing pain for last few days. complicated by "pre-DM" and was treated as a type 2 DM during the d/t early mild elevated glucoses. Post delivery, glucoses have been normal range. She was seen two days ago at the office and there was no discoloration of anterior abdominal wall but there was a firm area approximately 2 inches above the incision on the right side of her panis. At that time, she reported tenderness there and was started on Keflex PO. We discussed that the area that felt firm was seperate from her incision and I wondered if she was taking insulin here but she denied insulin use and sHe reported this was area of a nerve block needle injection by anesthesia in the recovery room. Past Medical History LMP: Unknown Cardiac Medical History: Denies: Coronary Artery Disease, Myocardial Infarction, Hypertension, Pulmonary Embolism Pulmonary Medical History: Reports: Asthma - "asthma symptoms", Bronchitis Denies: Chronic Obstructive Pulmonary Disease (COPD), Pneumonia, Sleep Apnea, Tuberculosis Neurological Medical History: Denies: Seizures Endocrine Medical History: Denies: Hyperthyroidism, Hypothyroidism Malignancy Medical History: Denies: Breast Cancer, Cervical Cancer, Ovarian Cancer GI Medical History: Reports: Gastroesophageal Reflux Disease - during Denies: Hiatal Hernia Musculoskeltal Medical History: Denies: Arthritis, Fibromyalgia Psychiatric Medical History: Reports: Depression - ANXIETY/DEPRESSION Denies: Bipolar Disorder, Post Traumatic Stress Disorder Infectious Medical History: Denies: HIV Past Surgical History Past Surgical History: Reports: Section, Orthopedic Surgery - Finger surgery yesterday, tendon reattachment ring finger left hand Social History Smoking Status: Former Smoker Family History Family History: Reviewed & Not Pertinent Parental Family History Reviewed: Yes Children Family History Reviewed: Yes Sibling(s) Family History Reviewed.: Yes Medication/Allergy Home Medications: Vit,Calc76/Iron/Folic [Prenatabs Rx Tablet] 1 tab PO DAILY 07/08/19 Esomeprazole Magnesium [Nexium] 20 mg PO DAILY 09/08/19 Docusate Sodium [Colace 100 mg Capsule] 100 mg PO BID #30 capsule 10/10/19 Cephalexin Monohydrate [Keflex 500 mg Capsule] 500 mg PO Q12 10/17/19 Furosemide [Lasix 20 mg Tablet] 10 mg PO [id number] 10/17/19 Ibuprofen [Motrin 800 mg Tablet] 800 mg PO Q8HP PRN 10/17/19 Allergies/Adverse Reactions: iodine Allergy (Verified 10/03/19 08:53) latex Allergy (Verified 10/03/19 08:53) Itching vancomycin Allergy (Verified 10/03/19 08:53) "red itchy scalp" bandaids Allergy (Uncoded 10/03/19 08:53) itching, redness CONTRAST DYE Adverse Reaction (Uncoded 10/03/19 08:54) Review of Systems Constitutional: ABSENT: chills, fever(s), headache(s), weight gain, weight loss Cardiovascular: ABSENT: chest pain, dyspnea on exertion, edema, orthropnea, palpitations Respiratory: ABSENT: cough, hemoptysis Gastrointestinal: PRESENT: as per HPI, abdominal pain Psychiatric: ABSENT: anxiety, depression, homidical ideation, suicidal ideation Endocrine: ABSENT: cold intolerance, heat intolerance, polydipsia, polyuria Hematologic/Lymphatic: ABSENT: easy bleeding, easy bruising Physical Exam - Physical Exam Vital Signs: Temp Pulse Resp BP Pulse Ox 97.6 F 87 16 131/89 H 99 10/18/19 04:18 10/18/19 04:18 10/18/19 04:18 10/18/19 04:18 10/18/19 04:18 Intake & Output 10/17/19 10/18/19 10/19/19 06:59 06:59 06:59 Intake Total 50 Balance 50 Weight 79.435 kg General appearance: PRESENT: cooperative, mild distress - Painful when walking/moving or changing positions from sitting to lying, obese Respiratory exam: PRESENT: clear to auscultation juan Cardiovascular exam: PRESENT: RRR, +S1, +S2 Pulses: PRESENT: +2 pedal pulses bilateral Vascular exam: PRESENT: normal capillary refill GI/Abdominal exam: PRESENT: normal bowel sounds, soft - but there is an endurated area in deep fatty tissue on the right approximately 2-3 inches above the incision. Feels like it is 6-8 cm in size and tender on palaption in this area. It is red over this area and mildly warm. There is queen discoloration across the lower part of panis which is 6 inches high . It does not communicate with her incision. Psychiatric exam: PRESENT: appropriate affect Skin exam: PRESENT: intact Assessment & Plan - Diagnosis (1) Cellulitis, abdominal wall Is this a current diagnosis for this admission?: Yes (2) Rectus sheath hematoma Qualifiers: Encounter type: initial encounter Qualified Code(s): S30.1XXA - Contusion of abdominal wall, initial encounter Is this a current diagnosis for this admission?: Yes (3) Acute blood loss anemia Is this a current diagnosis for this admission?: Yes (4) S/P repeat low transverse Is this a current diagnosis for this admission?: Yes - Time Critical Time spent with patient: 15-24 minutes Anticipated Discharge Disposition: Home, Self Care Anticipated Discharge Timeframe: within 48 hours - 29 yo with abdominal pain, abdominal wall discoloration, s/p CS , cellulitis anterior abdominal wall and rectus sheath hematoma. -Admit to obs for antibiotics IV -VS Q 4 hrs -NPO and IVFs: NS at 125 cc/hr -Out of bed as tolerating -IV antibiotics : Cefazolin -Pain management PRN -SCDs while in bed -will consult general surgery for recommendations
--- NOTE | 2019-10-18 08:56 | PDOC PROGRESS REPORT ---
Subjective Progress Note for:: 10/18/19 Subjective:: The patient complains of minimal lower abdominal skin discomfort near the incision Reason For Visit: POST CELLULITIS Physical Exam Vital Signs: Temp Pulse Resp BP Pulse Ox 97.9 F 80 18 122/82 99 10/18/19 08:24 10/18/19 08:24 10/18/19 08:24 10/18/19 08:24 10/18/19 08:24 Intake & Output 10/17/19 10/18/19 10/19/19 06:59 06:59 06:59 Intake Total 50 Balance 50 Weight 79.435 kg General appearance: PRESENT: no acute distress, thin GI/Abdominal exam: PRESENT: distended - Secondary to post-, soft, tenderness - Localized area lower abdomen, other - Large area of subcutaneous ecchymosis extending above and below the incision mostly on the right, with tenderness, bulging, skin discoloration Assessment & Plan - Time Anticipated Discharge Disposition: as per PCP Anticipated Discharge Timeframe: as PCP - Plan Summary Plan Summary: Assessment: Postop day #10 following section Large subcutaneous hematoma above and below the surgical incision CT scan reveals a large subcutaneous information with no drainable fluid collection However, on physical exam it appears that the patient has a large hematoma on the right side Plan: Patient to go to surgery today for drainage of abdominal surgical incision hematoma by the [facility] [employer] service I will be available for any questions intra-and postop.
[2019-10-18] MEDS ORDERED: CEFAZOLIN SODIUM 2 GM in DEXTROSE 5%-WATER 100 ML IV SCH (14:00)
[2019-10-18] MEDS ORDERED: BUPIVACAINE HCL 0.25 % INJ/PF (2.5 MG/1 ML) 30 ML VIAL ONE (15:00)
[2019-10-18] MEDS ORDERED: PROPOFOL INJ 200 MG/20 ML VIAL IV ONE ×2 (15:08→17:36)
[2019-10-18] MEDS ORDERED: MIDAZOLAM 2 MG/2 ML INJ ONE (15:08)
[2019-10-18] MEDS ORDERED: FENTANYL CITRATE INJ/PF 250 MCG/5 ML AMPULE ONE (15:08)
[2019-10-18] MEDS ORDERED: MORPHINE SULFATE 10 MG/ML INJ ONE (15:08)
[2019-10-18] MEDS ORDERED: PROMETHAZINE HCL INJ 25 MG/1 ML VIAL IV PRN ×2 (16:23)
[2019-10-18] MEDS ORDERED: FENTANYL CITRATE INJ/PF 100 MCG/2 ML AMPUL IV PRN (16:23)
[2019-10-18] MEDS ORDERED: MORPHINE SULFATE 10 MG/ML INJ IV PRN (16:23)
[2019-10-18] MEDS ORDERED: DIPHENHYDRAMINE HCL 50 MG/ML VIAL IV PRN (16:23)
[2019-10-18] MEDS ORDERED: CLINDAMYCIN PHOSPHATE INJ 300 MG/2 ML SDV ONE (16:31)
[2019-10-18] MEDS ORDERED: CLINDAMYCIN 900 MG/D5W RTU 900 MG/50 ML RTUPB IV ONE (16:33)
[2019-10-18 17:16] LABS: HEMATOCRIT 23.7 % (36.0-47.0); HEMOGLOBIN 8.5 g/dL (12.0-15.5); MEAN CORPUSCULAR HEMOGLOBIN 34.3 pg (27.0-33.4); MEAN CORPUSCULAR HGB CONC 35.7 g/dL (32.0-36.0); MEAN CORPUSCULAR VOLUME 96 fl (80-97); PLATELET COUNT 444 10^3/uL (150-450); RED BLOOD COUNT 2.47 10^6/uL (3.72-5.28); RED CELL DISTRIBUTION WIDTH 14.1 % (11.5-14.0)
[2019-10-18] MEDS ORDERED: OXYCODONE-ACETAMINOPHEN 5-325 MG TABLET PO PRN ×2 (17:18→17:20)
[2019-10-18] MEDS ORDERED: HYDROMORPHONE HCL INJ/PF 2 MG/ML AMPULE IV PRN (17:19)
[2019-10-18] MEDS ORDERED: ONDANSETRON HCL INJ/PF 4 MG/2 ML SDV IV PRN (17:21)
[2019-10-18] MEDS ORDERED: DEXTROSE 5%-1/2 NORMAL SALINE 500 ML IV PRN (17:21)
[2019-10-18] MEDS ORDERED: PIPERACILLIN/TAZOBACTAM 4.5 GM VIAL IV SCH (17:30)
[2019-10-18] MEDS: FENTANYL CITRATE INJ/PF 100 MCG/2 ML AMPUL ONE ×2 (17:31→17:33)
--- NOTE | 2019-10-18 17:35 | PDOC PROGRESS REPORT ---
Subjective Progress Note for:: 10/18/19 Subjective:: Doing okay. No f/c, n/v . She is having pain above incision and is worse on right but beginning to spread to the left. She is voiding okay. Bowels moving fine Reason For Visit: POST CELLULITIS Physical Exam - Physical Exam Vital Signs: Temp Pulse Resp BP Pulse Ox 97.4 F 85 18 134/80 H 99 10/18/19 15:00 10/18/19 15:00 10/18/19 15:00 10/18/19 11:20 10/18/19 15:00 Intake & Output 10/17/19 10/18/19 10/19/19 06:59 06:59 06:59 Intake Total 50 6000 Balance 50 6000 Weight 79.435 kg General appearance: PRESENT: no acute distress, cooperative Respiratory exam: PRESENT: clear to auscultation juan Cardiovascular exam: PRESENT: RRR, +S1, +S2 GI/Abdominal exam: PRESENT: normal bowel sounds, soft - abdomen overall soft but tender in lower abdomen around firm red area above her incision. FIrm, endurated area is now 10x 6 cm in size and quite tender. It is now dark red. Incision itself is clean, dry and intact. Redness was not near incision but now extends near upper margin Result Laboratory Results: 10/18/19 16:58 10/18/19 10/18/19 10/18/19 08:37 08:37 16:58 WBC 9.1 8.0 RBC 3.02 L 2.47 L Hgb 9.9 L 8.5 L Hct 28.7 L 23.7 L MCV 95 96 MCH 32.7 34.3 H MCHC 34.5 35.7 RDW 14.3 H 14.1 H Plt Count 533 H 444 Seg Neutrophils % 69.7 Blood Type A POSITIVE Antibody Screen NEGATIVE Assessment & Plan - Diagnosis (1) Cellulitis, abdominal wall Is this a current diagnosis for this admission?: Yes (2) Rectus sheath hematoma Qualifiers: Encounter type: initial encounter Qualified Code(s): S30.1XXA - Contusion of abdominal wall, initial encounter Is this a current diagnosis for this admission?: Yes (3) Acute blood loss anemia Is this a current diagnosis for this admission?: Yes (4) S/P repeat low transverse Is this a current diagnosis for this admission?: Yes - Time Time Spent with patient: Less than 15 minutes - Plan Summary Plan Summary: 29 yo with cellulitis of anterior abdominal wall, likely hematoma -VSS -Redness worsening and firmness spreading -Discussed case iwth Dr. Patterson and it is agreed that she would benefit from evacuation of hematoma, wound debriment -Consent for this obtained after discussioin of risks and benefits -WIll proceed later this afternoon.
--- NOTE | 2019-10-18 18:12 | Operative Report ---
Operative Report DATE OF SURGERY: 10/18/19 PREOPERATIVE DIAGNOSIS: Cellulitis anterior abdominal wall,hematoma anterior ab dominal wall and rectus sheath POSTOPERATIVE DIAGNOSIS: Same as above. Necrotic tissue within fatty tissue and small area of fascia. Part of skin along upper incision was necrotic as well. OPERATION: Evacuation of hematoma anterior abdominal wall and above rectus muscle on right. Removal of necrotic fatty tissue, skin and fascia right and central lower abdomen. Placement of wound vac system over wound. SURGEON: JENNIFER VALLADARES 1ST RETAIL DEPARTMENT MANAGER: MEJIA SMALL 2ND Supervisor Nuclear Medicine: SAUL CANALES ANESTHESIA: GA TISSUE REMOVED OR ALTERED: Segment of skin, fatty tissue and fascia with necrotic appearance COMPLICATIONS: None ESTIMATED BLOOD LOSS: 400 cc of old clotted blood and new bleeding INTRAOPERATIVE FINDINGS: Large dark clot pocket within the subcutaneous tissue on the right above the incision and second pocket of dark clotted blood just under the rectus fascia on the right. Necrotic tissue within fatty tissue and small area of fascia. Part of skin along upper incision was necrotic as well. Rectus muscles appeared healthy and peritoneum intact PROCEDURE: IV fluids: per anesthesia record Urinary output: 200cc clear yellow urine in coates collecting system Position: To recovery room in stable condition Description of procedure The patient was taken to the operating room and general anesthesia was administe red and found to be adequate. She was then placed on the OR table in the supine position. Patient was prepped and draped in usual sterile fashion. Cefazolin was given IV prior to the procedure for infection prophylaxis. Timeout was taken. The Pfannenstiel skin incision 10 days ago was opened with a scalpel and the incision was carried down through the subcutaneous tissue. A pocket of dark clotted blood was encountered and this was evacuated. This tract upward near the umbilicus but stopped 2-3 cm below the umbilicus. The remaining subcutaneous tissue was opened to the level of the rectus fascia and copious irrigation was used to remove any old blood. When pressure was applied with a lap gauze dark blood could be noted coming through the fascial incision. The rectus fascia was opened at the previous stitch and a second pocket of old dark blood was noted above the right rectus muscles this was evacuated and the area was irrigated. No active bleeding vessels were seen as the source of this coagulated blood. Any bleeding from the new incision was controlled with the Bovie. Once the hematoma was evacuated and tissue examined the fatty tissues superior to the incision appeared dark brown and pina in some areas. One small area of the fascia over top of the right rectus muscles also appeared necrotic and this was removed. All necrotic tissue including fat skin and fascia was removed until healthy tissue was noted. The necrotic tissue extended upward approximately 6 cm from the incision edge- in the fatty tissue and skin on the right and toward the center of the abdominal wall. Once all necrotic tissue was removed, the wound was copiously irrigated with warm normal saline. At this point, a wound VAC system was applied over the wound and the device was assessed noting appropriate suction. Dr. Small participated in the procedure in its entirety along with myself and Dr. Canales. All instrument sponge and needle counts were correct x3 for the procedure the patient tolerated the procedure well. She will proceed to recovery room in stable condition
[2019-10-18] MEDS ORDERED: NORMAL SALINE 250 ML IV PRN ×2 (18:16)
[2019-10-18] MEDS ORDERED: DEXTROSE 5%-WATER 1000 ML 1,000 ML IV PRN (18:55)
[2019-10-18] MEDS: PIPERACILLIN SODIUM/TAZOBACTAM 4.5 GM in NORMAL SALINE 100 ML IV SCH (19:08)
[2019-10-18] MEDS: DEXTROSE 5%-1/2 NORMAL SALINE 1,000 ML IV PRN (19:10)
[2019-10-18] MEDS: DIPHENHYDRAMINE HCL 50 MG/ML VIAL IV PRN (21:32)
[2019-10-18] MEDS: HYDROMORPHONE HCL INJ/PF 2 MG/ML AMPULE IV PRN (21:32)
[2019-10-19] MEDS: PIPERACILLIN SODIUM/TAZOBACTAM 4.5 GM in NORMAL SALINE 100 ML IV SCH ×4 (00:13→17:36)
[2019-10-19] MEDS: CLINDAMYCIN 900 MG/D5W RTU 900 MG/50 ML RTUPB IV SCH ×4 (00:14→21:37)
[2019-10-19] MEDS: HYDROMORPHONE HCL INJ/PF 2 MG/ML AMPULE IV PRN ×4 (00:28→21:36)
[2019-10-19 02:51] LABS: HEMATOCRIT 28.7 % (36.0-47.0); MEAN CORPUSCULAR HEMOGLOBIN 31.8 pg (27.0-33.4); MEAN CORPUSCULAR HGB CONC 34.7 g/dL (32.0-36.0); PLATELET COUNT 476 10^3/uL (150-450); RED BLOOD COUNT 3.14 10^6/uL (3.72-5.28); RED CELL DISTRIBUTION WIDTH 16.8 % (11.5-14.0); WHITE BLOOD COUNT 12.2 10^3/uL (4.0-10.5)
[2019-10-19 02:52] LABS: MEAN CORPUSCULAR VOLUME 92 fl (80-97)
[2019-10-19] MEDS: DIPHENHYDRAMINE HCL 50 MG/ML VIAL IV PRN ×3 (03:26→21:39)
[2019-10-19] MEDS: DEXTROSE 5%-1/2 NORMAL SALINE 1,000 ML IV PRN (06:19)
[2019-10-19] MEDS ORDERED: ONDANSETRON HCL INJ/PF 4 MG/2 ML SDV ONE ×2 (08:24→10:56)
[2019-10-19] MEDS ORDERED: KETOROLAC TROMETHAMINE 60 MG/2 ML SDV ONE (08:24)
[2019-10-19] MEDS ORDERED: KETAMINE HCL INJ 500 MG/10 ML VIAL ONE (08:24)
[2019-10-19] MEDS ORDERED: MIDAZOLAM 2 MG/2 ML INJ ONE (08:24)
[2019-10-19] MEDS ORDERED: FENTANYL CITRATE INJ/PF 100 MCG/2 ML AMPUL ONE (08:24)
[2019-10-19] MEDS ORDERED: PROPOFOL INJ 200 MG/20 ML VIAL IV ONE (08:25)
--- NOTE | 2019-10-19 09:31 | PDOC PROGRESS REPORT ---
Subjective Progress Note for:: 10/19/19 Subjective:: No complaints Reason For Visit: POST CELLULITIS Physical Exam Vital Signs: Temp Pulse Resp BP Pulse Ox 98.5 F 79 18 104/68 99 10/19/19 07:26 10/19/19 07:26 10/19/19 07:26 10/19/19 07:26 10/19/19 07:26 Intake & Output 10/18/19 10/19/19 10/20/19 06:59 06:59 06:59 Intake Total 50 06048 Output Total 400 Balance 50 9850 Weight 79.435 kg 84.7 kg General appearance: PRESENT: no acute distress GI/Abdominal exam: PRESENT: soft, other - Lower abdominal wound = covered with wound VAC, skin edges pink, no edema, odor, drainage, or erythema Results Laboratory Results: 10/19/19 02:30 10/18/19 10/18/19 10/19/19 08:37 16:58 02:30 WBC 8.0 12.2 H RBC 2.47 L 3.14 L Hgb 8.5 L 10.0 L Hct 23.7 L 28.7 L MCV 96 92 D MCH 34.3 H 31.8 MCHC 35.7 34.7 RDW 14.1 H 16.8 H Plt Count 444 476 H Blood Type A POSITIVE Antibody Screen NEGATIVE Assessment & Plan - Diagnosis (1) Necrotizing cellulitis Is this a current diagnosis for this admission?: Yes (2) Cellulitis, abdominal wall Is this a current diagnosis for this admission?: Yes - Time Anticipated Discharge Disposition: Home, Self Care Anticipated Discharge Timeframe: When abdominal wound is closed - Plan Summary Plan Summary: Assessment: Postoperative day #1 following right debridement abdominal wall and fascia as well as evacuation of rectus sheath hematoma secondary to necrotizing fasciitis and cellulitis Vital signs stable, patient afebrile patient transfused 1 unit of blood yesterday White blood cell count 12,000 Physical exam shows soft abdomen, wound VAC in place, wound edges pink viable Plan: Patient to go to surgery again for second look of the abdominal wound, additional debridement and washout, application of wound VAC Procedure, risks, benefits, complications, discussed with the patient including infection, bleeding, loss of abdominal domain, most likely implantation of mesh in the future to support abdominal wall, and scarring. She understands all the above, her questions answered, she desires to proceed today. Most likely, she will undergo final closure of the abdominal wall sometimes next week
[2019-10-19] MEDS ORDERED: PROMETHAZINE HCL INJ 25 MG/1 ML VIAL IV PRN ×2 (10:24)
[2019-10-19] MEDS ORDERED: OXYCODONE-ACETAMINOPHEN 5-325 MG TABLET PO PRN ×2 (10:24)
[2019-10-19] MEDS ORDERED: MEPERIDINE HCL/PF INJ 25 MG/1 ML DISP.SYRIN IV PRN (10:24)
[2019-10-19] MEDS ORDERED: FENTANYL CITRATE INJ/PF 100 MCG/2 ML AMPUL IV PRN ×3 (10:24)
[2019-10-19] MEDS ORDERED: MORPHINE SULFATE 10 MG/ML INJ IV PRN (10:24)
[2019-10-19] MEDS ORDERED: DIPHENHYDRAMINE HCL 50 MG/ML VIAL IV PRN (10:24)
[2019-10-19] MEDS ORDERED: ONDANSETRON HCL INJ/PF 4 MG/2 ML SDV IV PRN (10:24)
[2019-10-19] MEDS ORDERED: DEXAMETHASONE SOD PHOSPHATE INJ 4 MG/1 ML VIAL ONE (10:56)
[2019-10-19] MEDS ORDERED: ROCURONIUM BROMIDE INJ 50 MG/5 ML VIAL IV ONE (10:56)
[2019-10-19] MEDS ORDERED: SUCCINYLCHOLINE CHLORIDE INJ 200 MG/10 ML VIAL ONE ×2 (10:56→10:59)
[2019-10-19] MEDS ORDERED: NEOSTIGMINE METHYLSULFATE 10 MG/10 ML VIAL ONE (10:56)
[2019-10-19] MEDS ORDERED: GLYCOPYRROLATE 1 MG/5 ML VIAL ONE (10:56)
--- NOTE | 2019-10-19 11:08 | Operative Report ---
Operative Report DATE OF SURGERY: 10/19/19 PREOPERATIVE DIAGNOSIS: Clostridial infection of abdominal surgical wound invol ving skin subcutaneous fat and fascia POSTOPERATIVE DIAGNOSIS: Same OPERATION: Second look abdominal wound; jet lavage; application of wound VAC SURGEON: MEJIA SMALL 1ST TOY STUFFER: JT ESPOSITO ANESTHESIA: GA TISSUE REMOVED OR ALTERED: Post debridement soft tissue samples for culture and Gram stain COMPLICATIONS: None ESTIMATED BLOOD LOSS: Less than 10 mL INTRAOPERATIVE FINDINGS: Large abdominal wound, status post wide debridement of skin, subcutaneous fat, and anterior rectus sheath. Missing middle portion of right and left anterior rectus sheath, viable underlying rectus muscle, viable surrounding anterior rectus sheath, viable skin and subcutaneous fat circumferentially PROCEDURE: The procedure was done in the operating room, general esthesia induced Benedick intubation, the abdomen was prepped and draped in a sterile fashion; the wound was examined and no obvious areas of infection were identified. All tissues appeared to be viable with active bleeding. The skin edges with underlying fat were confidentially refreshed with #10 blade down to fascia for about a quarter to half an inch thickness. No discoloration was noted following refreshing the edges, the abdominal wound measured approximately 28 x 20 cm. The underlying anterior rectus sheath appeared to be healthy; however, a large portion of the midline anterior sheath was missing due previous debridement as the fascia was affected by the infection. When this was accomplished, local bleeders were controlled by either Bovie or suture ligation. A 3 L normal saline filled bag jet lavage was used to clean the wound; multiple pieces of Adaptic were placed on the surgical bed followed by wound VAC pina sponges, clear dressings were applied, an opening was made in the middle of the clear dressings, followed by application of the suction cup on top of it. This was connected to the wound VAC machine and good -125 mmHg negative pressure was obtained without leak. The patient tolerated the procedure well, extubated, and transferred to the recovery room in satisfactory conditions.
[2019-10-19] MEDS ORDERED: DEXTROSE 50%-WATER 25 GM/50 ML DISP.SYRIN IV PRN ×2 (11:09)
[2019-10-19] MEDS ORDERED: GLUCAGON,HUMAN RECOMB 1 MG INJ SUBCUT PRN (11:09)
[2019-10-19] MEDS ORDERED: DEXTROSE 40% GEL 15 GM TUBE PO PRN ×2 (11:09)
[2019-10-19] MEDS ORDERED: HYDROMORPHONE HCL INJ/PF 2 MG/ML AMPULE ONE (11:24)
[2019-10-19] MEDS: HYDROCODONE/ACETAMINOPHEN 5-325 MG TABLET PO PRN (14:56)
[2019-10-20] MEDS: HYDROMORPHONE HCL INJ/PF 2 MG/ML AMPULE IV PRN ×6 (00:42→23:57)
[2019-10-20] MEDS: PIPERACILLIN SODIUM/TAZOBACTAM 4.5 GM in NORMAL SALINE 100 ML IV SCH ×5 (00:42→23:57)
[2019-10-20] MEDS: HYDROCODONE/ACETAMINOPHEN 5-325 MG TABLET PO PRN ×3 (01:09→17:22)
[2019-10-20] MEDS: DIPHENHYDRAMINE HCL 50 MG/ML VIAL IV PRN ×3 (04:14→21:44)
[2019-10-20] MEDS: CLINDAMYCIN 900 MG/D5W RTU 900 MG/50 ML RTUPB IV SCH ×3 (06:25→21:37)
--- NOTE | 2019-10-20 08:51 | PDOC PROGRESS REPORT ---
Subjective Progress Note for:: 10/20/19 Subjective:: feels ok, wants to eat Reason For Visit: POST CELLULITIS Physical Exam Vital Signs: Temp Pulse Resp BP Pulse Ox 98.5 F 73 20 119/62 97 10/20/19 08:00 10/20/19 08:00 10/20/19 08:00 10/20/19 08:00 10/20/19 08:00 Intake & Output 10/19/19 10/20/19 10/21/19 06:59 06:59 06:59 Intake Total 81689 5700 Output Total 400 450 Balance 9850 5250 Weight 84.7 kg 86.1 kg General appearance: PRESENT: no acute distress Head exam: PRESENT: normocephalic Eye exam: PRESENT: EOMI Ear exam: PRESENT: normal external ear exam Mouth exam: PRESENT: moist Neck exam: PRESENT: full ROM Respiratory exam: PRESENT: clear to auscultation juan Cardiovascular exam: PRESENT: RRR Pulses: PRESENT: normal femoral pulses, normal dorsalis pedis pul Vascular exam: PRESENT: normal capillary refill Breast: PRESENT: Normal GI/Abdominal exam: PRESENT: soft, other - wound vac in place Rectal exam: PRESENT: deferred Gentrourinary exam: PRESENT: other Extremities exam: PRESENT: full ROM Musculoskeletal exam: PRESENT: full ROM Neurological exam: PRESENT: alert, awake, oriented to person, oriented to place Psychiatric exam: PRESENT: agitated Skin exam: PRESENT: dry Results Laboratory Results: 10/19/19 02:30 Assessment & Plan - Time Anticipated Discharge Disposition: Home, Self Care Anticipated Discharge Timeframe: unk - Plan Summary Plan Summary: doing ok wound vac in place will need wound vac changed in or on mon or will start reg diet now npo after midnight.
[2019-10-20] MEDS ORDERED: DEXTROSE 50%-WATER 25 GM/50 ML DISP.SYRIN IV PRN ×2 (18:05)
[2019-10-20] MEDS ORDERED: DEXTROSE 40% GEL 15 GM TUBE PO PRN ×2 (18:05)
[2019-10-20] MEDS ORDERED: GLUCAGON,HUMAN RECOMB 1 MG INJ SUBCUT PRN (18:05)
[2019-10-20] MEDS: NORMAL SALINE 1000 ML 1,000 ML IV PRN (21:44)
[2019-10-21] MEDS: HYDROCODONE/ACETAMINOPHEN 5-325 MG TABLET PO PRN ×2 (03:24→18:52)
[2019-10-21] MEDS: HYDROMORPHONE HCL INJ/PF 2 MG/ML AMPULE IV PRN ×4 (04:30→22:05)
[2019-10-21] MEDS: NORMAL SALINE 1000 ML 1,000 ML IV PRN ×2 (05:06→17:39)
[2019-10-21] MEDS: PIPERACILLIN SODIUM/TAZOBACTAM 4.5 GM in NORMAL SALINE 100 ML IV SCH ×3 (05:08→17:38)
[2019-10-21] MEDS: CLINDAMYCIN 900 MG/D5W RTU 900 MG/50 ML RTUPB IV SCH ×3 (05:08→22:18)
--- NOTE | 2019-10-21 09:57 | PDOC PROGRESS REPORT ---
Subjective Progress Note for:: 10/21/19 Reason For Visit: ABDOMINAL HEMOTOMA Patient had no complaints overnight. Esipnosa catheter still in Physical Exam Vital Signs: Temp Pulse Resp BP Pulse Ox 98.2 F 107 H 22 H 144/97 H 98 10/21/19 08:00 10/21/19 08:00 10/21/19 08:00 10/21/19 08:00 10/21/19 08:00 Intake & Output 10/20/19 10/21/19 10/22/19 06:59 06:59 06:59 Intake Total 5700 2046 Output Total 450 3200 Balance 5250 -1154 Weight 86.1 kg 86.1 kg General appearance: PRESENT: no acute distress GI/Abdominal exam: PRESENT: other - Abdominal wound VAC dressing in place; starting to remove dressing. Pain too much for patient. Results Laboratory Results: 10/19/19 02:30 Assessment & Plan - Diagnosis (1) Cellulitis, abdominal wall Is this a current diagnosis for this admission?: Yes Plan: Impression: Patient is 3 days status post abdominal wound debridement, wound VAC placement, growing gram-negative rods, on appropriate antibiotics; intended to take down wound VAC today at bedside, however patient needs bedside pain management. Plan: 1. Explained to the patient and mother that we would attempt dressing change at bedside with VAC replacement, anticipation of patient going home with wound VAC later this week. My plan was to come back and under appropriate sedation and bedside, change the VAC. This was discussed with nursing staff 2. I received a phone call from the systems planner approximately 9:40 AM stating that the patient and family did want me participating in the patient's care, and wished to be transferred to [facility]. I informed her to discuss this with Dr. Wellington, the attending physician. In the interim, the wound VAC is been left in position. (2) Rectus sheath hematoma Qualifiers: Encounter type: initial encounter Qualified Code(s): S30.1XXA - Contusion of abdominal wall, initial encounter - Time Time Spent: 30 to 50 Minutes Critical Time spent with patient: Less than 15 minutes Smoking Cessation Education: 3 to 10 minutes Medications reviewed and adjusted accordingly: Yes Anticipated Discharge Disposition: Home with Home Health Anticipated Discharge Timeframe: within 72 hours
[2019-10-21] MEDS ORDERED: MIDAZOLAM 2 MG/2 ML INJ ONE ×2 (11:03→11:39)
[2019-10-21] MEDS ORDERED: MORPHINE SULFATE 10 MG/ML INJ ONE ×2 (11:14→11:15)
--- NOTE | 2019-10-21 12:27 | Operative Report ---
Operative Report DATE OF SURGERY: 10/21/19 PREOPERATIVE DIAGNOSIS: Large open abdominal-pelvic wound POSTOPERATIVE DIAGNOSIS: Same OPERATION: Wound washout and VAC change SURGEON: CAS OSHEA ANESTHESIA: Moderate Sedation TISSUE REMOVED OR ALTERED: None COMPLICATIONS: None INTRAOPERATIVE FINDINGS: See below PROCEDURE: The patient was prepared for the wound VAC. Appropriate level of IV conscious sedation was induced under the supervision of Dr. Oshea. Surgical plan and timeout conducted. At bedside, in room 535, patient was placed in the recumbent position. The existing wound VAC was removed uneventfully. Patient tolerated the procedure reasonably well. Once the dressing was off and sponge and Adaptic out of the wound, there was no foul smell or purulent discharge. There was some fresh clot removed with saline. The entire wound including subcutaneous tissue, fascia, and exposed rectus muscle irrigated with saline. I used a hair clipper to remove all the pubic hair previously under the clear VAC use of. The wound is large extending from the left to the right anterior iliac spine area. It consist of exposed subcutaneous tissue circumferentially, reasonably intact fascia covering the right and left lateral external oblique muscles; centrally the inferior portions of the right and left rectus abdominis muscles are exposed without intact fascia. No probing beyond superficial washing was performed. There was no evidence of necrotic tissue so nothing was debrided. We now placed a fresh Adaptic into the recesses of the wound, and used two sponges, 1 large on the right side of the abdominal wall, trimmed to a teardrop configuration laterally, and 1 small sponge on the left side of the wound to accommodate the remaining exposed cavity. Appropriate sealing rings were applied to the sponges, and 125 mmHg negative suction applied successfully without evidence of leak. Plan: . Continue intravenous antibiotics and VAC therapy for the next 1 to 3 days. 2. We will discuss with general surgery team wound management options going forward.
[2019-10-21] MEDS ORDERED: BISACODYL 10 MG SUPP.RECT PR ONE (15:00)
--- NOTE | 2019-10-21 17:26 | PDOC PROGRESS REPORT ---
Subjective Progress Note for:: 10/21/19 Subjective:: Patient reports bad day. She is in pain. Dressing change done at bedside and she was given some medicine but it did not really help the pain. States she was unhappy with the process and states she has asked for a transfer Pain is improved now but not all the way gone. Reports light vaginal bleeding. Catheter in place with good UOP noted in coates system SHe is still pumping breast milk and no issues with breast. is taking milk for baby. Has not had a BM and states she feels she needs to go but cant. No BM since Monday last week. She is eating okay. No n/v. Denies f/c. No adverse reaction to antibiotics. Reason For Visit: ABDOMINAL HEMATOMA Physical Exam - Physical Exam Vital Signs: Temp Pulse Resp BP Pulse Ox 98.2 F 107 H 22 H 144/97 H 98 10/21/19 08:00 10/21/19 08:00 10/21/19 08:00 10/21/19 08:00 10/21/19 08:00 Intake & Output 10/20/19 10/21/19 10/22/19 06:59 06:59 06:59 Intake Total 5700 2096 100 Output Total 450 3200 Balance 5250 -1104 100 Weight 86.1 kg 86.1 kg General appearance: PRESENT: no acute distress, cooperative - Upset and some tearing during conversation Mouth exam: PRESENT: moist Respiratory exam: PRESENT: clear to auscultation juan Cardiovascular exam: PRESENT: RRR, +S1, +S2 GI/Abdominal exam: PRESENT: normal bowel sounds - mild tenderness around wound. WOund vac intact. Skin edges I can see look pink, soft Additional comments: No calf tenderness Result Laboratory Results: 10/19/19 02:30 Assessment & Plan - Diagnosis (1) Cellulitis, abdominal wall Is this a current diagnosis for this admission?: Yes (2) Rectus sheath hematoma Qualifiers: Encounter type: initial encounter Qualified Code(s): S30.1XXA - Contusion of abdominal wall, initial encounter Is this a current diagnosis for this admission?: Yes (3) Acute blood loss anemia Is this a current diagnosis for this admission?: Yes (4) S/P repeat low transverse Is this a current diagnosis for this admission?: Yes (5) Necrotizing cellulitis Is this a current diagnosis for this admission?: Yes - Time Time Spent with patient: 25-34 minutes - Inpatient Certification Based on my medical assessment, after consideration of the patient's comorbidities, presenting symptoms, or acuity I expect that the services needed warrant INPATIENT care.: Yes I certify that my determination is in accordance with my understanding of Medicare's requirements for reasonable and necessary INPATIENT services [42 CFR 412.3e].: Yes Medical Necessity: Need for IV Antibiotics, Need for Surgery - Plan Summary Plan Summary: 29 yo who is s/p RCS approx 13 days ago with cellulitis, necrotizing. S/p surgical debriment of necrotic tissue: Initial debriment 10/18/19 and f/u debriments on 10/19/19 and 10/20/19. -VSS, afebrile -CBC showed WBC on admit 9.1--> 8.0-->12.2 -Hgb on admit 9.9--> 8.5--> 10.0 -She had bad experience with pain control during dressing change this am at the bedside. Pain is better managed presently with PRN medications -Culture thus far showed Serratia Marcescens w/ sensativity to Zosyn which she is recieving. Will follow. Continue antibiotics as ordered -No OB/ post CS issues. She is breast feeding so pumping currently. VB light. -Good UOP via coates. -Has not had BM for 5 days and feels she needs to go but afraid to push. WIll begin a stool softner and dulcolox prn -Spoke with Dr. Oshea and wound plans reviewed. -SCDs while in bed.
[2019-10-21] MEDS: DOCUSATE SODIUM 100 MG CAPSULE PO SCH (17:57)
[2019-10-21] MEDS: DIPHENHYDRAMINE HCL 50 MG/ML VIAL IV PRN (18:15)
[2019-10-22] MEDS: PIPERACILLIN SODIUM/TAZOBACTAM 4.5 GM in NORMAL SALINE 100 ML IV SCH ×5 (00:31→23:38)
[2019-10-22] MEDS: DIPHENHYDRAMINE HCL 50 MG/ML VIAL IV PRN ×4 (00:32→22:39)
[2019-10-22] MEDS: HYDROMORPHONE HCL INJ/PF 2 MG/ML AMPULE IV PRN ×5 (00:33→22:37)
[2019-10-22] MEDS ORDERED: PROPOFOL INJ 200 MG/20 ML VIAL IV ONE (06:57)
[2019-10-22] MEDS ORDERED: MIDAZOLAM 2 MG/2 ML INJ ONE (06:57)
[2019-10-22] MEDS ORDERED: FENTANYL CITRATE INJ/PF 250 MCG/5 ML AMPULE ONE (06:57)
[2019-10-22] MEDS: CLINDAMYCIN 900 MG/D5W RTU 900 MG/50 ML RTUPB IV SCH ×3 (08:02→22:39)
[2019-10-22] MEDS: DOCUSATE SODIUM 100 MG CAPSULE PO SCH ×2 (09:23→17:17)
[2019-10-22] MEDS ORDERED: DIPHENHYDRAMINE HCL 50 MG/ML VIAL IV PRN (11:11)
[2019-10-22] MEDS ORDERED: PROMETHAZINE HCL INJ 25 MG/1 ML VIAL IV PRN ×2 (11:11)
[2019-10-22] MEDS ORDERED: FENTANYL CITRATE INJ/PF 100 MCG/2 ML AMPUL IV PRN ×2 (11:11)
[2019-10-22] MEDS ORDERED: MEPERIDINE HCL/PF INJ 25 MG/1 ML DISP.SYRIN IV PRN (11:11)
[2019-10-22] MEDS ORDERED: BUPIVACAINE INJ/PF LIPOSOME/PF 266 MG/20 ML SDV ONE (11:35)
[2019-10-22] MEDS ORDERED: BUPIVACAINE INJ/PF LIPOSOME/PF 266 MG/20 ML SDV INJ ONE (11:38)
--- NOTE | 2019-10-22 12:14 | Operative Report ---
Nonrecallable Operative Report DATE OF SURGERY: 10/22/19 PREOPERATIVE DIAGNOSIS: Status post abdominal wall debridement POSTOPERATIVE DIAGNOSIS: Status post abdominal wall debridement OPERATION: Abdominal wall reconstruction SURGEON: VIRGINIA CARBAJAL ANESTHESIA: GA TISSUE REMOVED OR ALTERED: None COMPLICATIONS: None ESTIMATED BLOOD LOSS: Less than 10 cc INTRAOPERATIVE FINDINGS: See note PROCEDURE: Patient was brought to the operating awake alert stable condition placed in the operative table supine position induced under general anesthesia intubated. After appropriate timeout site verification the procedure commenced. The previous placed wound VAC was removed from her lower abdominal wall and visualization of the wound revealed the fairly wide gaping wound that extended from the right anterior superior iliac spine to the left anterior superior iliac spine. Very similar to a panniculectomy incision. The rectus muscle was observed and it was viable and clean without evidence of infection the rectus muscle was exposed and the anterior rectus sheath was missing for approximately a distance of 9 cm lengthwise and about 4 cm width. However it appeared to be clean without evidence of infection. We therefore commenced with abdominal wall closure. The wound was copiously irrigated with Hibiclens. I raised the skin flaps superiorly with Bovie cautery lifting the Madelyn's fascia up off the rectus sheath. Once this was done we extended similarly the skin flap inferiorly with the Bovie cautery to raise it up off the rectus sheath. I then used a piece of [place] bio a mesh 9 cm long by 5 cm wide and attached it as an onlay on top of the rectus muscle to the edges of the remaining anterior rectus sheath this was done circumferentially with #2 Vicryl sutures. We then copiously again irrigated the wound with Hibiclens we closed the Madelyn's fascia with interrupted 2-0 Vicryl sutures we trimmed the skin edges and then closed the dermis with intracuticular placed 3-0 Biosyn suture. I left a Rhett-Crump drain at the base on top of the rectus sheath and brought out through a the wound at the on the right side and fixed it to the skin with 2-0 nylon. Steri-Strips then completed the procedure sterile dressing was applied abdominal binder was a dry applied and the patient was then transferred recovery in stable condition after extubation. Sponge needle counts were correct x2 blood loss was less than 10 cc
[2019-10-22] MEDS ORDERED: PROMETHAZINE HCL INJ 25 MG/1 ML VIAL ONE (12:23)
[2019-10-22] MEDS ORDERED: FENTANYL CITRATE INJ/PF 100 MCG/2 ML AMPUL ONE (12:45)
[2019-10-22] MEDS: FENTANYL CITRATE INJ/PF 100 MCG/2 ML AMPUL IV PRN ×2 (12:45→13:14)
[2019-10-22] MEDS: NORMAL SALINE 1000 ML 1,000 ML IV PRN ×2 (13:37→23:43)
[2019-10-22] MEDS ORDERED: NEOSTIGMINE METHYLSULFATE 10 MG/10 ML VIAL ONE (15:19)
[2019-10-22] MEDS ORDERED: GLYCOPYRROLATE 1 MG/5 ML VIAL ONE (15:19)
[2019-10-22] MEDS ORDERED: SUCCINYLCHOLINE CHLORIDE INJ 200 MG/10 ML VIAL ONE (15:19)
[2019-10-22] MEDS ORDERED: ONDANSETRON HCL INJ/PF 4 MG/2 ML SDV ONE (15:19)
[2019-10-22] MEDS ORDERED: ROCURONIUM BROMIDE INJ 50 MG/5 ML VIAL IV ONE (15:19)
[2019-10-22] MEDS ORDERED: DEXAMETHASONE SOD PHOSPHATE INJ 4 MG/1 ML VIAL ONE (15:19)
--- NOTE | 2019-10-22 16:36 | PDOC PROGRESS REPORT ---
Subjective Progress Note for:: 10/22/19 Subjective:: Patient reports feeling much better today. Pain is well managed. Tolerated PO yesterday . She is NPO for surgery today. She note a small bruise x2 one on each labia that is the size of a thumb print and is really worried about this. On inspection it looks like gravity has taken part of hematoma/bruising to this area. It is soft, not tender, no redness and tissue all around looks healthy. Reports light vaginal bleeding. Catheter in place with good UOP noted in coates system SHe is still pumping breast milk and no issues with breast. is taking milk for baby. Had a BM yesterday and it was loose. No n/v. Denies f/c. No adverse reaction to antibiotics-except loose stools Reason For Visit: ABDOMINAL HEMATOMA Physical Exam - Physical Exam Vital Signs: Temp Pulse Resp BP Pulse Ox 97.6 F 72 20 124/85 98 10/22/19 13:33 10/22/19 13:33 10/22/19 13:33 10/22/19 13:33 10/22/19 13:33 Intake & Output 10/21/19 10/22/19 10/23/19 06:59 06:59 06:59 Intake Total 2096 4200 1475 Output Total 3200 2275 600 Balance -1104 1925 875 Weight 86.1 kg 88.5 kg General appearance: PRESENT: no acute distress, cooperative Respiratory exam: PRESENT: clear to auscultation juan Cardiovascular exam: PRESENT: RRR, +S1, +S2 GI/Abdominal exam: PRESENT: normal bowel sounds, soft, tenderness - mildly tender around wound but it looks clean with nice red edges and no areas of infections seen through wound vac dressing although not all surfaces are seen. NO purulent discharge in drain tube. Neurological exam: PRESENT: alert, altered, awake Psychiatric exam: PRESENT: appropriate affect Skin exam: PRESENT: normal color Result Laboratory Results: 10/19/19 02:30 Assessment & Plan - Diagnosis (1) Cellulitis, abdominal wall Is this a current diagnosis for this admission?: Yes (2) Rectus sheath hematoma Qualifiers: Encounter type: initial encounter Qualified Code(s): S30.1XXA - Contusion of abdominal wall, initial encounter Is this a current diagnosis for this admission?: Yes (3) Acute blood loss anemia Is this a current diagnosis for this admission?: Yes (4) S/P repeat low transverse Is this a current diagnosis for this admission?: Yes (5) Necrotizing cellulitis Is this a current diagnosis for this admission?: Yes - Time Time Spent with patient: 15-24 minutes - Plan Summary Plan Summary: 29 yo who is s/p RCS approx 14 days ago with cellulitis, necrotizing. S/p surgical debriment of necrotic tissue: Initial debriment 10/18/19 and f/u debriments on 10/19/19 and 10/20/19. -VSS, afebrile -CBC showed WBC on admit 9.1--> 8.0-->12.2 -Hgb on admit 9.9--> 8.5--> 10.0 -Pain well managed today -Culture thus far showed Serratia Marcescens w/ sensativity to Zosyn which she is recieving. Will follow. Continue antibiotics as ordered -No OB/ post CS issues. She is breast feeding so pumping currently. VB light. -Good UOP via coates. -Bowels moving loose stools. Stool softner and dulcolox prn -SUrgery planned today with General surgery -SCDs while in bed.
[2019-10-23] MEDS: PIPERACILLIN SODIUM/TAZOBACTAM 4.5 GM in NORMAL SALINE 100 ML IV SCH ×3 (06:03→18:23)
[2019-10-23] MEDS: DIPHENHYDRAMINE HCL 50 MG/ML VIAL IV PRN ×3 (06:04→23:01)
[2019-10-23] MEDS: HYDROMORPHONE HCL INJ/PF 2 MG/ML AMPULE IV PRN ×5 (06:04→22:46)
[2019-10-23] MEDS: CLINDAMYCIN 900 MG/D5W RTU 900 MG/50 ML RTUPB IV SCH ×3 (06:05→22:48)
[2019-10-23] MEDS: HYDROCODONE/ACETAMINOPHEN 5-325 MG TABLET PO PRN (08:01)
[2019-10-23] MEDS: NORMAL SALINE 1000 ML 1,000 ML IV PRN (08:01)
[2019-10-23] MEDS: DOCUSATE SODIUM 100 MG CAPSULE PO SCH ×2 (11:45→18:23)
[2019-10-23] MEDS: PRENATAL VITAMIN W DHA CAPSULE PO SCH (11:45)
[2019-10-23] MEDS: HYDROCODONE/ACETAMINOPHEN 10-325 MG TABLET PO PRN (14:32)
--- NOTE | 2019-10-23 15:32 | PDOC PROGRESS REPORT ---
Subjective Progress Note for:: 10/23/19 Subjective:: Patient reports feeling much better today. Pain is well managed. Tolerating PO. Reports light vaginal bleeding. Catheter in place with good UOP noted in coates system Having bowel movements. Loose stools SHe is still pumping breast milk and no issues with breast No adverse reaction to antibiotics Feeling sad, not eating well and not resting well. She thinks she has some PTSD after that incision change DIscussed starting antidepressant like Zoloft which is safe during breast feeding Reason For Visit: ABDOMINAL HEMATOMA Physical Exam - Physical Exam Vital Signs: Temp Pulse Resp BP Pulse Ox 98.2 F 84 18 111/74 99 10/23/19 08:06 10/23/19 08:06 10/23/19 08:06 10/23/19 08:06 10/23/19 08:06 Intake & Output 10/22/19 10/23/19 10/24/19 06:59 06:59 06:59 Intake Total 4200 4875 760 Output Total 2275 2445 10 Balance 1925 2430 750 Weight 88.5 kg 86 kg General appearance: PRESENT: no acute distress, cooperative Respiratory exam: PRESENT: clear to auscultation juan Cardiovascular exam: PRESENT: RRR, +S1, +S2 GI/Abdominal exam: PRESENT: normal bowel sounds, soft, tenderness - Mildly tender lower abdomen. There is a small blister on left lower abdomen midway up. Patient states she is allergic to tapes and adhesives. INcision with steri strips and gauze intact. Looking under dressing, it looks dry. One small area of drainage just left of center She has a WARNER with serosanginous drainage Neurological exam: PRESENT: alert, awake, oriented to person, oriented to place, oriented to time Psychiatric exam: PRESENT: appropriate affect Skin exam: PRESENT: dry, intact, warm. ABSENT: cyanosis, rash Result Laboratory Results: 10/19/19 02:30 10/19/19 10:21 Abdomen - Tissue (Surgical) Gram Stain - Final 10/19/19 10:21 Abdomen - Tissue (Surgical) Wound Culture - Final NO AEROBIC OR ANAEROBIC ORGANISMS RECOVERED 10/18/19 15:56 Abdomen - Cellulitis Gram Stain - Final 10/18/19 15:56 Abdomen - Cellulitis Wound Culture - Final Serratia Marcescens No Anaerobic Organisms 10/18/19 15:56 Abdomen - Incision Site Gram Stain - Final 10/18/19 15:56 Abdomen - Incision Site Wound Culture - Final Serratia Marcescens No Anaerobic Organisms Assessment & Plan - Diagnosis (1) Cellulitis, abdominal wall Is this a current diagnosis for this admission?: Yes (2) Rectus sheath hematoma Qualifiers: Encounter type: initial encounter Qualified Code(s): S30.1XXA - Contusion of abdominal wall, initial encounter Is this a current diagnosis for this admission?: Yes (3) Acute blood loss anemia Is this a current diagnosis for this admission?: Yes (4) S/P repeat low transverse Is this a current diagnosis for this admission?: Yes (5) Necrotizing cellulitis Is this a current diagnosis for this admission?: Yes - Time Time Spent with patient: 15-24 minutes - Plan Summary Plan Summary: 29 yo who is s/p RCS approx 15 days ago with cellulitis, necrotizing. S/p surgical debriment of necrotic tissue: Initial debriment 10/18/19 and f/u debriments on 10/19/19 and 10/20/19. Wound was closed yesterday and WARNER in place -VSS, afebrile -CBC showed WBC on admit 9.1--> 8.0-->12.2 -Hgb on admit 9.9--> 8.5--> 10.0 -Pain well managed today -Culture thus far showed Serratia Marcescens w/ sensativity to Zosyn which she is recieving. Will follow. Continue antibiotics as ordered -No OB/ post CS issues. She is breast feeding so pumping currently. VB light. -Good UOP via coates. May remove coates if general surgery is okay with this order. -Bowels moving loose stools -Decreased mood, not sleeping and not eating well. WIll start zoloft 50mg today. May have Ambien 10mg PRN insomnia prn -SCDs while in bed.
--- NOTE | 2019-10-23 21:27 | PDOC PROGRESS REPORT ---
Subjective Reason For Visit: ABDOMINAL HEMATOMA Physical Exam Vital Signs: Temp Pulse Resp BP Pulse Ox 98.1 F 92 16 136/88 H 100 10/23/19 16:23 10/23/19 16:23 10/23/19 16:23 10/23/19 16:23 10/23/19 16:23 Intake & Output 10/22/19 10/23/19 10/24/19 06:59 06:59 06:59 Intake Total 4200 4875 910 Output Total 2275 2445 160 Balance 1925 2430 750 Weight 88.5 kg 86 kg Results Laboratory Results: 10/19/19 02:30 10/19/19 10:21 Abdomen - Tissue (Surgical) Gram Stain - Final 10/19/19 10:21 Abdomen - Tissue (Surgical) Wound Culture - Final NO AEROBIC OR ANAEROBIC ORGANISMS RECOVERED 10/18/19 15:56 Abdomen - Cellulitis Gram Stain - Final 10/18/19 15:56 Abdomen - Cellulitis Wound Culture - Final Serratia Marcescens No Anaerobic Organisms 10/18/19 15:56 Abdomen - Incision Site Gram Stain - Final 10/18/19 15:56 Abdomen - Incision Site Wound Culture - Final Serratia Marcescens No Anaerobic Organisms Assessment & Plan - Diagnosis (1) Rectus sheath hematoma Qualifiers: Encounter type: initial encounter Qualified Code(s): S30.1XXA - Contusion of abdominal wall, initial encounter Is this a current diagnosis for this admission?: Yes - Time Anticipated Discharge Disposition: unknown Anticipated Discharge Timeframe: unknown - Plan Summary Plan Summary: 29-year-old female status post debridement and evacuation of a large abdominal wall hematoma. Patient underwent washout and closure of her wound yesterday. Dressing is clean, dry, and intact. WARNER drain is productive of serosanguineous fluid. Leave dressing in place for now. Keep abdominal binder in place. Surgery will continue to follow with you.
[2019-10-23] MEDS: ZOLPIDEM TARTRATE 5 MG TABLET PO SCH (22:48)
[2019-10-24] MEDS: PIPERACILLIN SODIUM/TAZOBACTAM 4.5 GM in NORMAL SALINE 100 ML IV SCH ×4 (00:17→17:54)
[2019-10-24] MEDS: NORMAL SALINE 1000 ML 1,000 ML IV PRN ×2 (03:12→14:55)
[2019-10-24] MEDS: HYDROCODONE/ACETAMINOPHEN 5-325 MG TABLET PO PRN ×2 (03:32→10:41)
[2019-10-24] MEDS: CLINDAMYCIN 900 MG/D5W RTU 900 MG/50 ML RTUPB IV SCH ×3 (07:02→22:00)
--- NOTE | 2019-10-24 08:53 | PDOC PROGRESS REPORT ---
Subjective Progress Note for:: 10/24/19 Subjective:: Patient reports feeling good today. Pain is well managed. Tolerating PO. Reports light vaginal bleeding to none. Voiding without incidence Having bowel movements. Loose stools SHe is still pumping breast milk and no issues with breast No adverse reaction to antibiotics Slept well [place] Anna last night. Reason For Visit: ABDOMINAL HEMATOMA Physical Exam - Physical Exam Vital Signs: Temp Pulse Resp BP Pulse Ox 98.3 F 87 16 144/93 H 99 10/24/19 03:28 10/24/19 03:28 10/24/19 03:28 10/24/19 03:28 10/24/19 03:28 Intake & Output 10/23/19 10/24/19 10/25/19 06:59 06:59 06:59 Intake Total 4875 2420 Output Total 2445 390 Balance 2430 2030 Weight 86 kg 85.8 kg General appearance: PRESENT: no acute distress, cooperative Respiratory exam: PRESENT: clear to auscultation juan Cardiovascular exam: PRESENT: RRR, +S1, +S2 GI/Abdominal exam: PRESENT: normal bowel sounds, soft, tenderness - Incision appears dry , dressing in place. No drainage and I see no redness or erythema on what I can see. Neurological exam: PRESENT: alert, awake, oriented to person, oriented to place, oriented to time Psychiatric exam: PRESENT: appropriate affect Skin exam: PRESENT: dry, intact, warm. ABSENT: cyanosis, rash Result Laboratory Results: 10/19/19 02:30 10/19/19 10:21 Abdomen - Tissue (Surgical) Gram Stain - Final 10/19/19 10:21 Abdomen - Tissue (Surgical) Wound Culture - Final NO AEROBIC OR ANAEROBIC ORGANISMS RECOVERED 10/18/19 15:56 Abdomen - Cellulitis Gram Stain - Final 10/18/19 15:56 Abdomen - Cellulitis Wound Culture - Final Serratia Marcescens No Anaerobic Organisms 10/18/19 15:56 Abdomen - Incision Site Gram Stain - Final 10/18/19 15:56 Abdomen - Incision Site Wound Culture - Final Serratia Marcescens No Anaerobic Organisms Assessment & Plan - Diagnosis (1) Cellulitis, abdominal wall Is this a current diagnosis for this admission?: Yes (2) Rectus sheath hematoma Qualifiers: Encounter type: initial encounter Qualified Code(s): S30.1XXA - Contusion of abdominal wall, initial encounter Is this a current diagnosis for this admission?: Yes (3) Acute blood loss anemia Is this a current diagnosis for this admission?: Yes (4) S/P repeat low transverse Is this a current diagnosis for this admission?: Yes (5) Necrotizing cellulitis Is this a current diagnosis for this admission?: Yes - Time Time Spent with patient: Less than 15 minutes - Plan Summary Plan Summary: 29 yo who is s/p RCS approx 16 days ago with cellulitis, necrotizing. S/p surgical debriment of necrotic tissue: Initial debriment 10/18/19 and f/u debriments on 10/19/19 and 10/20/19. Wound was closed yesterday and WARNER in place -VSS, afebrile -CBC showed WBC on admit 9.1--> 8.0-->12.2 -Hgb on admit 9.9--> 8.5--> 10.0 -Pain well managed today -Taking PO well. May be able to decrease IVFs today if okay with surgery team. -Culture thus far showed Serratia Marcescens w/ sensativity to Zosyn which she is recieving. Will follow. Continue antibiotics as ordered -No OB/ post CS issues. She is breast feeding so pumping currently. VB light. -Voiding frequently without incidence -Bowels moving loose stools -Decreased mood, not sleeping and not eating well. Started zoloft 50mg yesterday. May have Ambien 10mg PRN insomnia prn which seemed to help last night. -SCDs while in bed.
[2019-10-24] MEDS: SERTRALINE HCL 50 MG TABLET PO SCH (10:34)
[2019-10-24] MEDS: PRENATAL VITAMIN W DHA CAPSULE PO SCH (10:34)
[2019-10-24] MEDS: DOCUSATE SODIUM 100 MG CAPSULE PO SCH ×2 (10:34→17:54)
--- NOTE | 2019-10-24 13:57 | PDOC PROGRESS REPORT ---
Subjective Progress Note for:: 10/24/19 Reason For Visit: ABDOMINAL HEMATOMA Patient doing well, tolerating diet, voiding with catheter out, and having adequate pain control. Minimal amount of serous sanguinous drainage from bulb suction. Physical Exam Vital Signs: Temp Pulse Resp BP Pulse Ox 98.5 F 88 16 134/82 H 100 10/24/19 11:23 10/24/19 11:23 10/24/19 11:23 10/24/19 11:23 10/24/19 11:23 Intake & Output 10/23/19 10/24/19 10/25/19 06:59 06:59 06:59 Intake Total 4875 2420 Output Total 2445 390 40 Balance 2430 2029 - Weight 86 kg 85.8 kg General appearance: PRESENT: no acute distress GI/Abdominal exam: PRESENT: other - Entire dressing removed. Drain site looks good. Steri-Strips in place. No foul smell, drainage; flaps are viable without any ischemic changes Results Laboratory Results: 10/19/19 02:30 10/19/19 10:21 Abdomen - Tissue (Surgical) Gram Stain - Final 10/19/19 10:21 Abdomen - Tissue (Surgical) Wound Culture - Final NO AEROBIC OR ANAEROBIC ORGANISMS RECOVERED 10/18/19 15:56 Abdomen - Cellulitis Gram Stain - Final 10/18/19 15:56 Abdomen - Cellulitis Wound Culture - Final Serratia Marcescens No Anaerobic Organisms 10/18/19 15:56 Abdomen - Incision Site Gram Stain - Final 10/18/19 15:56 Abdomen - Incision Site Wound Culture - Final Serratia Marcescens No Anaerobic Organisms Assessment & Plan - Diagnosis (1) Cellulitis, abdominal wall Is this a current diagnosis for this admission?: Yes Plan: Impression: Postoperative day 2 closure anterior abdominal-pelvic wound with mes h over drain, doing well with no evidence of wound problems. Plan: 1. Reassurance provided to the patient that she is making satisfactory progress 2. Saline lock; continue IV antibiotics for another 24 to 48 hours; may be up with abdominal binder on 3. We will continue to follow patient with you (2) Rectus sheath hematoma Qualifiers: Encounter type: initial encounter Qualified Code(s): S30.1XXA - Contusion of abdominal wall, initial encounter Is this a current diagnosis for this admission?: Yes - Time Time Spent: 30 to 50 Minutes Critical Time spent with patient: Less than 15 minutes Medications reviewed and adjusted accordingly: Yes Anticipated Discharge Disposition: Home, Self Care Anticipated Discharge Timeframe: within 48 hours
[2019-10-24] MEDS: HYDROCODONE/ACETAMINOPHEN 10-325 MG TABLET PO PRN (16:24)
[2019-10-24] MEDS: HYDROMORPHONE HCL INJ/PF 2 MG/ML AMPULE IV PRN (23:14)
[2019-10-24] MEDS: ZOLPIDEM TARTRATE 5 MG TABLET PO SCH (23:14)
[2019-10-25] MEDS: PIPERACILLIN SODIUM/TAZOBACTAM 4.5 GM in NORMAL SALINE 100 ML IV SCH ×3 (00:56→13:08)
[2019-10-25] MEDS: CLINDAMYCIN 900 MG/D5W RTU 900 MG/50 ML RTUPB IV SCH ×2 (05:33→13:09)
[2019-10-25] MEDS: HYDROCODONE/ACETAMINOPHEN 10-325 MG TABLET PO PRN ×2 (08:49→14:09)
[2019-10-25] MEDS: PRENATAL VITAMIN W DHA CAPSULE PO SCH (09:56)
[2019-10-25] MEDS: DOCUSATE SODIUM 100 MG CAPSULE PO SCH (09:57)
[2019-10-25] MEDS: SERTRALINE HCL 50 MG TABLET PO SCH (09:57)
--- NOTE | 2019-10-25 10:36 | PDOC PROGRESS REPORT ---
Subjective Progress Note for:: 10/25/19 Subjective:: Feels well minimal complaints of pain Reason For Visit: ABDOMINAL HEMATOMA Physical Exam Vital Signs: Temp Pulse Resp BP Pulse Ox 98.5 F 84 18 133/87 H 98 10/25/19 07:32 10/25/19 07:32 10/25/19 07:32 10/25/19 07:32 10/25/19 07:32 Intake & Output 10/24/19 10/25/19 10/26/19 06:59 06:59 06:59 Intake Total 2420 1450 1000 Output Total 390 50 Balance 2030 1400 1000 Weight 85.8 kg 84.6 kg General appearance: PRESENT: no acute distress Head exam: PRESENT: normocephalic Eye exam: PRESENT: EOMI Ear exam: PRESENT: normal external ear exam Mouth exam: PRESENT: moist Neck exam: PRESENT: full ROM Respiratory exam: PRESENT: clear to auscultation juan Cardiovascular exam: PRESENT: RRR Pulses: PRESENT: normal radial pulses, normal femoral pulses Vascular exam: PRESENT: normal capillary refill Breast: PRESENT: Normal GI/Abdominal exam: PRESENT: other - The lower midline incision is healing well the Rhett-Crump drain is placed on the right side is putting out serous fluid Steri-Strips are in place there is no cellulitis minimal tenderness to the incision. Rectal exam: PRESENT: deferred Extremities exam: PRESENT: full ROM Musculoskeletal exam: PRESENT: full ROM Neurological exam: PRESENT: alert, awake, oriented to person, oriented to place Skin exam: PRESENT: dry Results Laboratory Results: 10/19/19 02:30 Assessment & Plan - Time Anticipated Discharge Disposition: Home, Self Care Anticipated Discharge Timeframe: when bed available - Plan Summary Plan Summary: Impression status post abdominal wound closure with repair of abdominal rectus fascia with mesh. Patient doing well today has a Rhett-Crump drain and functioning well. She is tolerating a regular diet her wound is clean and dry there is no evidence of any infection of the wound She is ready for discharge home today she can follow-up in the surgical clinic with me in 7 to 10 days after discharge for drain removal. Surgery will sign off at this point although I have a placed a prescription for her for Percocet upon discharge.
--- NOTE | 2019-10-25 12:45 | PDOC DISCHARGE SUMMARY ---
Impression - Admit/DC Date/PCP Admission Date/Primary Care Provider: 10/19/19 15:00 JENNIFER VALLADARES MD Discharge Date: 10/25/19 - Discharge Diagnosis (1) Cellulitis, abdominal wall Is this a current diagnosis for this admission?: Yes (2) Rectus sheath hematoma Is this a current diagnosis for this admission?: Yes (3) Acute blood loss anemia Is this a current diagnosis for this admission?: Yes (4) S/P repeat low transverse Is this a current diagnosis for this admission?: Yes - Assessment Summary: 29 yo who is s/p RCS approx 1 days ago with cellulitis, necrotizing. S/p surgical debriment of necrotic tissue: Initial debriment 10/18/19 and f/u debriments on 10/19/19 and 10/20/19. Wound was closed yesterday and WARNER in place -VSS, afebrile -CBC showed WBC on admit 9.1--> 8.0-->12.2 -Hgb on admit 9.9--> 8.5--> 10.0 -Pain well managed today -Taking PO well. May be able to decrease IVFs today if okay with surgery team. -Culture thus far showed Serratia Marcescens w/ sensativity to Zosyn which she is recieving. Will follow. Continue antibiotics as ordered -No OB/ post CS issues. She is breast feeding so pumping currently. VB light. -Voiding frequently without incidence -Bowels moving loose stools -Decreased mood, not sleeping and not eating well. Started zoloft 50mg yesterday. May have Ambien 10mg PRN insomnia prn which seemed to help last night. 29 yo who is s/p RCS approx 17 days ago with cellulitis, necrotizing. S/p surgical debriment of necrotic tissue: Initial debriment 10/18/19 and f/u debriments on 10/19/19 and 10/20/19. Wound was closed 10/[address] -VSS, afebrile -CBC showed WBC on admit 9.1--> 8.0-->12.2 -Hgb on admit 9.9--> 8.5--> 10.0 -Pain well managed today -Taking PO well. May be able to decrease IVFs today if okay with surgery team. -Culture thus far showed Serratia Marcescens w/ sensativity to Zosyn which she is recieving. Will follow. Continue antibiotics as ordered. D/w Dr. Zhang and recommendations to continue to 10 days abx - will give Bactrim. -No OB/ post CS issues. She is breast feeding so pumping currently. VB light. -Voiding frequently without incidence -Bowels moving loose stools -Decreased mood, not sleeping and not eating well. Started zoloft 50mg yest erday. May have Ambien 10mg PRN -SCDs while in bed.-SCDs while in bed. - Additional Information Resuscitation Status: Full Code Discharge Diet: As Tolerated Discharge Activity: Activity As Tolerated, Balance Activity w/Rest, No Driving, No Lifting/Push/Pulling, Pelvic Rest, No tub bath Referrals: JENNIFER VALLADARES MD [Primary Care Provider] - (APPT WED 10/30/2019 at 2:30 pm) MCKAYLA ZHANG MD [ACTIVE STAFF] - Prescriptions: Sulfamethoxazole/Trimethoprim [Bactrim Ds Tablet] 1 each PO BID 3 Days #6 tablet Fluconazole [Diflucan] 150 mg PO ONCE PRN 2 Days #2 tablet PRN Reason: Ibuprofen [Ibu] 800 mg PO Q8 15 Days #45 tablet Sertraline HCl [Zoloft 50 mg Tablet] 50 mg PO DAILY #30 tablet Home Medications: Vit,Calc76/Iron/Folic [Prenatabs Rx Tablet] 1 tab PO DAILY 07/08/19 Esomeprazole Magnesium [Nexium] 20 mg PO DAILY 09/08/19 Docusate Sodium [Colace 100 mg Capsule] 100 mg PO BID #30 capsule 10/10/19 Ibuprofen [Motrin 800 mg Tablet] 800 mg PO Q8HP PRN 10/17/19 Fluconazole [Diflucan] 150 mg PO ONCE PRN 2 Days #2 tablet 10/25/19 Hydrocodone/Acetaminophen [[place] 10-325 mg Tablet] 1 tab PO Q6HP PRN tablet 10/25/19 Ibuprofen [Ibu] 800 mg PO Q8 15 Days #45 tablet 10/25/19 Sertraline HCl [Zoloft 50 mg Tablet] 50 mg PO DAILY tablet 10/25/19 Sertraline HCl [Zoloft 50 mg Tablet] 50 mg PO DAILY #30 tablet 10/25/19 Sulfamethoxazole/Trimethoprim [Bactrim Ds Tablet] 1 each PO BID 3 Days #6 tablet 10/25/19 History of Present Illiness History of Present Illness: JANETTE ROMERO is a 29 yo who is s/p RCS approx 17 days ago with cellulitis, necrotizing. S/p surgical debriment of necrotic tissue: Initial debriment 10/18/19 and f/u debriments on 10/19/19 and 10/20/19. Wound was closed 10/[address] -VSS, afebrile -CBC showed WBC on admit 9.1--> 8.0-->12.2 -Hgb on admit 9.9--> 8.5--> 10.0 -Pain well managed today -Taking PO well. May be able to decrease IVFs today if okay with surgery team. -Culture thus far showed Serratia Marcescens w/ sensativity to Zosyn which she is recieving. Will follow. Continue antibiotics as ordered -No OB/ post CS issues. She is breast feeding so pumping currently. VB light. -Voiding frequently without incidence -Bowels moving loose stools -Decreased mood, not sleeping and not eating well. Started zoloft 50mg yesterday. May have Ambien 10mg PRN insomnia prn which seemed to help last night. -SCDs while in bed. Hospital Course Hospital Course: 29 yo who is s/p RCS approx 17 days ago with cellulitis, necrotizing. S/p surgical debriment of necrotic tissue: Initial debriment 10/18/19 and f/u debriments on 10/19/19 and 10/20/19. Wound was closed 10/[address] -VSS, afebrile -CBC showed WBC on admit 9.1--> 8.0-->12.2 -Hgb on admit 9.9--> 8.5--> 10.0 -Pain well managed today -Taking PO well. May be able to decrease IVFs today if okay with surgery team. -Culture thus far showed Serratia Marcescens w/ sensativity to Zosyn which she is recieving. Will follow. Continue antibiotics as ordered -No OB/ post CS issues. She is breast feeding so pumping currently. VB light. -Voiding frequently without incidence -Bowels moving loose stools -Decreased mood, not sleeping and not eating well. Started zoloft 50mg yesterday. May have Ambien 10mg PRN insomnia prn which seemed to help last night. -SCDs while in bed. Physical Exam - Physical Exam Vital Signs: Temp Pulse Resp BP Pulse Ox 98.5 F 84 18 133/87 H 98 10/25/19 07:32 10/25/19 07:32 10/25/19 07:32 10/25/19 07:32 10/25/19 07:32 Intake & Output 10/24/19 10/25/19 10/26/19 06:59 06:59 06:59 Intake Total 2420 1450 1050 Output Total 390 50 Balance 2029 1400 1050 Weight 85.8 kg 84.6 kg General appearance: PRESENT: no acute distress, well-developed, well-nourished GI/Abdominal exam: PRESENT: normal bowel sounds, other - WARNER with serosanguinous drainage. incision c/d/i with secondary closure. ABSENT: guarding, rebound Rectal exam: PRESENT: deferred Extremities exam: PRESENT: full ROM. ABSENT: calf tenderness, clubbing, pedal edema Neurological exam: PRESENT: alert, awake, oriented to person, oriented to place, oriented to time, oriented to situation, CN II-XII grossly intact. ABSENT: motor sensory deficit Psychiatric exam: PRESENT: appropriate affect, normal mood. ABSENT: homicidal ideation, suicidal ideation Skin exam: PRESENT: dry, intact, warm. ABSENT: cyanosis, rash Results Laboratory Results: WBC 12.2 10^3/uL (4.0-10.5) H 10/19/19 02:30 RBC 3.14 10^6/uL (3.72-5.28) L 10/19/19 02:30 Hgb 10.0 g/dL (12.0-15.5) L 10/19/19 02:30 Hct 28.7 % (36.0-47.0) L 10/19/19 02:30 MCV 92 fl (80-97) D 10/19/19 02:30 MCH 31.8 pg (27.0-33.4) 10/19/19 02:30 MCHC 34.7 g/dL (32.0-36.0) 10/19/19 02:30 RDW 16.8 % (11.5-14.0) H 10/19/19 02:30 Plt Count 476 10^3/uL (150-450) H 10/19/19 02:30 Lymph % (Auto) 21.2 % (13-45) 10/18/19 08:37 [place] % (Auto) 6.4 % (3-13) 10/18/19 08:37 Eos % (Auto) 2.1 % (0-6) 10/18/19 08:37 Baso % (Auto) 0.6 % (0-2) 10/18/19 08:37 Absolute Neuts (auto) 6.3 10^3/uL (1.7-8.2) 10/18/19 08:37 Absolute Lymphs (auto) 1.9 10^3/uL (0.5-4.7) 10/18/19 08:37 Absolute Monos (auto) 0.6 10^3/uL (0.1-1.4) 10/18/19 08:37 Absolute Eos (auto) 0.2 10^3/uL (0.0-0.6) 10/18/19 08:37 Absolute Basos (auto) 0.1 10^3/uL (0.0-0.2) 10/18/19 08:37 Seg Neutrophils % 69.7 % (42-78) 10/18/19 08:37 POC Glucose 109 mg/dL (70-110) 10/23/19 21:39 SARS-CoV-2 (PCR) NEGATIVE (NEGATIVE) 10/18/19 20:20 Blood Type A POSITIVE 10/18/19 08:37 Blood Type Confirm A POSITIVE 10/18/19 08:37 Antibody Screen NEGATIVE 10/18/19 08:37 Crossmatch See Detail 10/18/19 08:37 Plan Health Concerns: f/u with surgery. f/u with Dr. Valladares on 10/29 at 1430 Stroke Is this a Stroke Patient?: No Acute Heart Failure Is this a Heart Failure Patient?: No
[2019-10-25 14:04] VITALS: BP 114/64
== END 2019-10-25 14:15 | disposition home or self-care (01) | DRG 769 ==
LOC: 5 21:03 → OBSVTOIN 10-19 15:00
PROVIDERS: ADMIT Obstetrics & Gynecology; ATTEND Obstetrics & Gynecology
PROC: 0JB80ZZ Excision of Abdomen Subcutaneous Tissue and Fascia, Open Approach (ICD-10-PCS; 2019-10-18)
PROC: 30233N1 Transfusion of Nonautologous Red Blood Cells into Peripheral Vein, Percutaneous Approach (ICD-10-PCS; 2019-10-18)
PROC: 0WCJ0ZZ Extirpation of Matter from Pelvic Cavity, Open Approach (ICD-10-PCS; principal; 2019-10-18 15:30)
PROC: 0JB80ZZ Excision of Abdomen Subcutaneous Tissue and Fascia, Open Approach (ICD-10-PCS; 2019-10-19)
PROC: 0JD80ZZ Extraction of Abdomen Subcutaneous Tissue and Fascia, Open Approach (ICD-10-PCS; 2019-10-21)
PROC: 2W03X6Z Change Pressure Dressing on Abdominal Wall (ICD-10-PCS; 2019-10-21)
PROC: 0WQFXZZ Repair Abdominal Wall, External Approach (ICD-10-PCS; 2019-10-22)
PROC: 0W9F00Z Drainage of Abdominal Wall with Drainage Device, Open Approach (ICD-10-PCS; 2019-10-22)
DX: O86.02 Infection of obstetric surgical wound, deep incisional site (principal); M72.6 Necrotizing fasciitis; D62 Acute posthemorrhagic anemia; L03.311 Cellulitis of abdominal wall; O90.2 Hematoma of obstetric wound; O99.89 Other specified diseases and conditions complicating pregnancy, childbirth and the puerperium; O90.81 Anemia of the puerperium; Z20.828 Contact with and (suspected) exposure to other viral communicable diseases; B96.89 Other specified bacterial agents as the cause of diseases classified elsewhere
CPT/HCPCS: 36415; 36430; 400; 700; 800; 82962; 85025; 85027; 86850; 86900; 86901; 86920; 87070; 87075; 87077; 87186; 87205; 87635; 88304; 94799; 99140; C1758; C1781; C9290; C9803; G0378; J0330; J0690; J1100; J1170; J1200; J1885; J2250; J2270; J2405; J2543; J2550; J2704; J2710; J3010; J3490; J7030; J7050; P9016

== ENCOUNTER → 2019-10-17 | Outpatient (CLI) | payer OTHER, MEDICAID ==
--- NOTE | 2019-10-17 16:02 | RADIOLOGY REPORT (SQ) ---
EXAM DESCRIPTION: CT ABD/PELVIS NO ORAL OR IV IMAGES COMPLETED DATE/TIME: 10/17/2019 3:00 pm REASON FOR STUDY: L03.311 CELLULITIS OF ABDOMINAL WALL L03.311 CELLULITIS OF ABDOMINAL WALL COMPARISON: None. TECHNIQUE: CT scan of the abdomen and pelvis performed without intravenous or oral contrast. Images reviewed with lung, soft tissue, and bone windows. Reconstructed coronal and sagittal MPR images revi ewed. All images stored on PACS. All CT scanners at this facility use dose modulation, iterative reconstruction, and/or weight based d osing when appropriate to reduce radiation dose to as low as reasonably achievable (ALARA). [facility]: Dose Right [facility]: CareDose [facility]: Dose Right [facility]: Teradose 4D [facility]: Smart Technologies RADIATION DOSE: CT Rad equipment meets quality standard of care and radiation dose reduction techniq ues were employed. CTDIvol: 9.6 mGy. DLP: 483 mGy-cm.mGy. LIMITATIONS: None. FINDINGS: LOWER CHEST: No significant findings. No nodules or infiltrates. NON-CONTRASTED LIVER, SPLEEN, ADRENALS: Evaluation limited by lack of IV contrast. No identified sign ificant masses. PANCREAS: No masses. No peripancreatic inflammatory changes. GALLBLADDER: Contracted. No stones. RIGHT KIDNEY AND URETER: No suspicious masses. Assessment limited by lack of IV contrast. No signif icant calcifications. No hydronephrosis or hydroureter. LEFT KIDNEY AND URETER: No suspicious masses. Assessment limited by lack of IV contrast. There is a small nonobstructing lower calyceal calculus. No hydronephrosis or hydroureter. AORTA AND RETROPERITONEUM: No aneurysm. No retroperitoneal masses or adenopathy. BOWEL AND PERITONEAL CAVITY: No obvious masses or inflammatory changes. No free fluid. APPENDIX: Not identified. PELVIS, BLADDER, AND ABDOMINAL WALL:Urinary bladder and uterus are normal. ABDOMINAL WALL: There is thickening of the rectus muscles 26.4 cm. No drainable fluid collection is appreciated. There is stranding in the subcutaneous fat anteriorly, mostly on the right side with t here is confluent areas of opacification. Once again, no drainable fluid collection is appreciated. BONES: No significant findings. OTHER: No other significant finding. IMPRESSION: 1. There is thickening of the rectus muscles. Cannot exclude rectus hematoma. Cannot exclude infection. 2. There are inflammatory changes in the subcutaneous fat mostly to the right side. Consistent with cellulitis. 3. No drainable or definable fluid collection is seen. COMMENT: Quality ID # [id number]: Final reports with documentation of one or more dose reduction techniques (e.g., Automated exposure control, adjustment of the mA and/or kV acco there is marked thickening of the rectus muscles to 6.4 cm. No fluid collection is identified within this. There is stranding in the subcutaneous fat anteriorly, mostly on the right side. Once again no definable fluid collection s in. Rding to patient size, use of iterative reconstruction technique) TECHNICAL DOCUMENTATION: JOB ID: [id number] 2010 [employer]- All Rights Reserved Reading location - IP/workstation name: [email or web address]
== END ==
LOC: RAD 14:53
PROVIDERS: ATTEND Obstetrics & Gynecology
DX: L03.311 Cellulitis of abdominal wall (principal)
CPT/HCPCS: 74176

== ENCOUNTER → 2019-10-17 | Outpatient (CLI) | payer OTHER, MEDICAID ==
[2019-10-17 16:03] LABS: ABSOLUTE BASOPHILS # (AUTO) 0.1 10^3/uL (0.0-0.2); ABSOLUTE EOSINOPHILS # (AUTO) 0.2 10^3/uL (0.0-0.6); ABSOLUTE MONOCYTES (AUTO) 0.6 10^3/uL (0.1-1.4); ABSOLUTE NEUT (AUTO) 7.6 10^3/uL (1.7-8.2); BASOPHILS % (AUTO) 1.3 % (0-2); EOSINOPHILS % (AUTO) 1.6 % (0-6); HEMATOCRIT 28.7 % (36.0-47.0); HEMOGLOBIN 10.1 g/dL (12.0-15.5); LYMPHOCYTES % (AUTO) 19.1 % (13-45); MEAN CORPUSCULAR HEMOGLOBIN 33.4 pg (27.0-33.4); MEAN CORPUSCULAR HGB CONC 35.3 g/dL (32.0-36.0); MEAN CORPUSCULAR VOLUME 95 fl (80-97); MONOCYTES % (AUTO) 5.9 % (3-13); PLATELET COUNT 575 10^3/uL (150-450); RED BLOOD COUNT 3.03 10^6/uL (3.72-5.28); RED CELL DISTRIBUTION WIDTH 14.5 % (11.5-14.0); SEGMENTED NEUTROPHILS % (AUTO) 72.1 % (42-78); TOTAL CELLS COUNTED % (AUTO) 100 %; WHITE BLOOD COUNT 10.6 10^3/uL (4.0-10.5)
[2019-10-17 16:19] LABS: ALBUMIN 3.7 g/dL (3.5-5.0); ALKALINE PHOSPHATASE 68 U/L (38-126); ANION GAP 6 (5-19); ASPARTATE AMINO TRANSFERASE 20 U/L (14-36); BILIRUBIN,DIRECT 0.3 mg/dL (0.0-0.4); BILIRUBIN,TOTAL 0.9 mg/dL (0.2-1.3); BLOOD UREA NITROGEN 19 mg/dL (7-20); CALCIUM 9.4 mg/dL (8.4-10.2); CARBON DIOXIDE 29 mmol/L (22-30); CHLORIDE 106 mmol/L (98-107); GLUCOSE 87 mg/dL (75-110); POTASSIUM 4.8 mmol/L (3.6-5.0); TOTAL PROTEIN 6.4 g/dL (6.3-8.2)
== END ==
LOC: OD 15:12
PROVIDERS: ATTEND Obstetrics & Gynecology
DX: L03.311 Cellulitis of abdominal wall (principal)
CPT/HCPCS: 36415; 80053; 85025

== ENCOUNTER 2019-12-03 12:53 | Day surgery (SDC) | payer OTHER, MEDICAID ==
[2019-11-29 09:58] LABS: HEMATOCRIT 36.3 % (36.0-47.0); HEMOGLOBIN 12.6 g/dL (12.0-15.5); MEAN CORPUSCULAR HEMOGLOBIN 31.3 pg (27.0-33.4); MEAN CORPUSCULAR HGB CONC 34.6 g/dL (32.0-36.0); MEAN CORPUSCULAR VOLUME 90 fl (80-97); PLATELET COUNT 229 10^3/uL (150-450); RED BLOOD COUNT 4.01 10^6/uL (3.72-5.28); RED CELL DISTRIBUTION WIDTH 15.2 % (11.5-14.0); WHITE BLOOD COUNT 6.2 10^3/uL (4.0-10.5)
[2019-11-29 10:30] LABS: ALBUMIN 4.3 g/dL (3.5-5.0); ALKALINE PHOSPHATASE 67 U/L (38-126); ANION GAP 9 (5-19); ASPARTATE AMINO TRANSFERASE 28 U/L (14-36); BILIRUBIN,DIRECT 0.3 mg/dL (0.0-0.4); BILIRUBIN,TOTAL 0.4 mg/dL (0.2-1.3); BLOOD UREA NITROGEN 15 mg/dL (7-20); CARBON DIOXIDE 26 mmol/L (22-30); CHLORIDE 104 mmol/L (98-107); GLUCOSE 86 mg/dL (75-110); POTASSIUM 4.3 mmol/L (3.6-5.0); TOTAL PROTEIN 7.1 g/dL (6.3-8.2)
[~2019-12-03 12:53] MED LIST changes: +ACETAMINOPHEN 325 MG TABLET PO PRN; +ALBUTEROL SULFATE HFA (90 MCG/PUFF) 8 GM MDI IH ONE; -CEFAZOLIN 2 GM/D5W RTU 2 GM/50 ML RTUPB IV PRN; +CEFOXITIN SODIUM 2 GM in DEXTROSE 5%-WATER 100 ML IV PRN; +GLYCOPYRROLATE 1 MG/5 ML VIAL ONE; +IBUPROFEN 800 MG in NORMAL SALINE 250 ML IV PRN; +LACTATED RINGERS 1000 ML IV PRN; +METOPROLOL TARTRATE PF/INJ 5 MG/5 ML SDV IV ONE; +NEOSTIGMINE METHYLSULFATE 10 MG/10 ML VIAL ONE
[2019-12-03] MEDS ORDERED: ACETAMINOPHEN 325 MG TABLET ONE (13:22)
[2019-12-03] MEDS ORDERED: DEXAMETHASONE SOD PHOSPHATE INJ 4 MG/1 ML VIAL ONE (16:49)
[2019-12-03] MEDS ORDERED: FENTANYL CITRATE INJ/PF 100 MCG/2 ML AMPUL ONE ×2 (16:49→19:00)
[2019-12-03] MEDS ORDERED: ONDANSETRON HCL INJ/PF 4 MG/2 ML SDV ONE (16:49)
[2019-12-03] MEDS ORDERED: MIDAZOLAM 2 MG/2 ML INJ ONE (16:49)
[2019-12-03] MEDS ORDERED: LIDOCAINE 2% INJ-PF (20 MG/ML) 10 ML AMPUL ONE (16:49)
[2019-12-03] MEDS ORDERED: HYDROMORPHONE HCL INJ/PF 2 MG/ML AMPULE ONE (16:50)
[2019-12-03] MEDS ORDERED: PROPOFOL INJ 200 MG/20 ML VIAL IV ONE (16:50)
[2019-12-03] MEDS ORDERED: BUPIVACAINE HCL 0.25 % INJ/PF (2.5 MG/1 ML) 30 ML VIAL ONE (16:54)
[2019-12-03] MEDS ORDERED: DIPHENHYDRAMINE HCL 50 MG/ML VIAL IV PRN (17:30)
[2019-12-03] MEDS ORDERED: MEPERIDINE HCL/PF INJ 25 MG/1 ML DISP.SYRIN IV PRN (17:30)
[2019-12-03] MEDS ORDERED: PROMETHAZINE HCL INJ 25 MG/1 ML VIAL IV PRN ×2 (17:30)
[2019-12-03] MEDS ORDERED: OXYCODONE-ACETAMINOPHEN 5-325 MG TABLET PO PRN ×2 (17:30)
[2019-12-03] MEDS ORDERED: FENTANYL CITRATE INJ/PF 100 MCG/2 ML AMPUL IV PRN ×3 (17:30)
[2019-12-03] MEDS ORDERED: MORPHINE SULFATE 10 MG/ML INJ IV PRN (17:30)
--- NOTE | 2019-12-03 18:48 | Discharge Summary ---
Discharge Summary (SDC) - Discharge Final Diagnosis: symptomatic gallstones Date of Surgery: 12/03/19 Discharge Date: 12/03/19 Condition: Stable Treatment or Instructions: Discharge home. Diet as tolerated. Activity: No lifting greater than 10 pounds x 2 weeks. Follow-up with [place] in 7 to 10 days. Okay to shower starting on . [place] 10/3 2 5 mg p.o. every 6 hours as needed for pain. No tub baths or swimming pools x2 weeks. Prescriptions: Hydrocodone/Acetaminophen [[place] 10-325 mg Tablet] 1 tab PO Q6HP PRN #28 tablet PRN Reason: For Pain Referrals: PEPPER HERNÁNDEZ PA [Primary Care Provider] - Discharge Diet: As Tolerated Respiratory Treatments at Home: Deep Breathing/Coughing, Incentive Spirometer Discharge Activity: No Lifting Over 10 Pounds, No Lifting/Push/Pulling Home Care Assistance: None Needed Report the Following to Your Physician Immediately: Shortness of Breath, Nausea, Vomiting, Increase in Pain, Yellow Skin, Fever over 101 Degrees, Unusual Bleeding, Redness
[2019-12-03] MEDS ORDERED: DIPHENHYDRAMINE HCL 50 MG/ML VIAL ONE (19:05)
[2019-12-03] MEDS ORDERED: HYDROCODONE/ACETAMINOPHEN 10-325 MG TABLET PO PRN (19:21)
[2019-12-03] MEDS: LABETALOL HCL INJ 20 MG/4 ML DISP.SYRIN IV ONE ×2 (19:22→19:30)
[2019-12-03] MEDS ORDERED: HYDRALAZINE HCL INJ/PF 20 MG/1 ML SDV ONE (19:49)
[2019-12-03 21:12] VITALS: BP 142/94
--- NOTE | 2019-12-12 13:05 | Operative Report ---
Nonrecallable Operative Report DATE OF SURGERY: 12/03/19 PREOPERATIVE DIAGNOSIS: Symptomatic gallstones POSTOPERATIVE DIAGNOSIS: Same as above OPERATION: Laparoscopic cholecystectomy SURGEON: MCKAYLA YOO ANESTHESIA: GA TISSUE REMOVED OR ALTERED: Gallbladder COMPLICATIONS: None apparent ESTIMATED BLOOD LOSS: Minimal PROCEDURE: Drains/implants: None. Procedure in detail: After informed consent was obtained, the patient was brought to the operating room and laid in the supine position. The area of the abdomen was prepped and draped in a normal sterile fashion. Patient had a supraumbilical and infraumbilical scar that were causing puckering of the skin around the umbilicus. The umbilicus, superior scar, and inferior scar were excised. Dissection was carried down to the bottom of the cicatrix, which was amputated. There was a tiny defect after the cicatrix was removed. The small defect was used to insert the 12 mm balloon trocar. Gas insufflation was attached, and pneumoperitoneum was achieved. A subxiphoid 5 mm port was then placed under direct laparoscopic visualization. 2 more 5 mm ports were placed in the right upper quadrant in similar fashion. Atraumatic graspers were placed through the 5 mm ports. The gallbladder was then retracted cephalad and laterally. Dissection was begun in the triangle of [place]. The cystic duct and cystic artery were fully visualized and skeletonized, seeing the liver through the triangle. Once the critical view of safety was obtained, the cystic duct and cystic artery were clipped and cut with laparoscopic instruments. The gallbladder was then removed from the liver using Bovie electrocautery. The gallbladder was grasped and removed through the umbilical port site. The camera was then reinserted. The hilum was inspected. It was found to be free of any leakage of blood or bile. Once this was confirmed, the 5 mm trochars were removed under direct laparoscopic visualization. The umbilical trocar was removed, and pneumoperitoneum was relieved. 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 Secondary to this, several plication sutures were used at the umbilicus, and above the umbilicus. 0 Prolene sutures were used in [id number] fashion to plicate the diastasis recti. The small fascial defect was closed using 0 Prolene suture in [id number] fashion. The subcutaneous tissues were closed using 3-0 Vicryl suture in running fashion. The overlying skin was closed using 4-0 Vicryl Rapide suture in running subcuticular fashion. Dressings were placed, and the procedure was concluded. All sponge, instrument, and needle counts were correct x2. Condition: Stable.
== END 2019-12-03 21:00 | disposition home or self-care (01) ==
LOC: OROUT 12:53
PROVIDERS: ATTEND Surgery
DX: K81.1 Chronic cholecystitis (principal); M62.08 Separation of muscle (nontraumatic), other site; Z03.818 Encounter for observation for suspected exposure to other biological agents ruled out; Z83.79 Family history of other diseases of the digestive system; K21.9 Gastro-esophageal reflux disease without esophagitis; J45.909 Unspecified asthma, uncomplicated; Z79.899 Other long term (current) drug therapy; Z86.32 Personal history of gestational diabetes
CPT/HCPCS: 36415; 85027; 81025; 80053; 88304 ×2; 00790; 47562; U0003; J2250; J1100; J1200; J3010; J0360; J3490 ×5; J2710; J1170; J2405; J7060; J7050; J2704; J1741; J0694; C9803; 790; 87635